=== PATIENT | female | born 1935 | race Caucasian/White ===

== ENCOUNTER 2016-08-12 17:03 | Emergency (ER) | payer OTHER, MEDICAID ==
[~2016-08-12] VITALS: Ht 160 cm; Wt 94.3 kg
[~2016-08-12 17:03] MED LIST: ALBUAER3 IN; ALL100T PO; ASPI-498 PO; FURO20TA3 PO; GABA-494 PO; GLYB2.5T76 PO; MELA3TAB27 PO; METO25TA5 PO; NAPR-607 PO; OMEP20CA5 PO; POT20T PO; RIVA15TA PO; SERT-160 PO; SIMV-13 PO
[2016-08-12 18:17] LABS: Basophils # (auto) 0 uL; Basophils % (auto) 0.4 % (0.0-2.0); Eosinophils # (auto) 0.2 uL; Eosinophils % (auto) 2.7 % (0.0-7.0); Hematocrit 37.9 % (36.0-46.0); Hemoglobin 12.8 g/dL (12.2-16.2); Lymphocytes # (auto) 1.3 uL; Lymphocytes % (auto) 16.7 % (10.0-50.0); Mean Corpuscular Hemoglobin 31.9 pg (28.0-32.0); Mean Corpuscular Hgb Conc. 33.7 g/dL (32.0-36.0); Mean Corpuscular Volume 94.6 fL (80.0-100.0); Monocytes # (auto) 0.4 uL; Monocytes % (auto) 5.5 % (0.0-12.0); Neutrophils # (auto) 5.9 uL; Neutrophils % (auto) 74.7 % (37.0-80.0); Platelet Count (auto) 222 10^3/uL (140-450); Red Cell Distribution Width 14.4 % (11.6-16.0); White Blood Cell 7.9 10^3/uL (4.4-10.8)
[2016-08-12 18:44] LABS: Albumin 3.4 g/dL (3.4-5.0); Bilirubin, Total 0.4 mg/dL (0.2-1.0); Calcium 8.6 mg/dL (8.5-10.1); Potassium 4.1 mmol/L (3.5-5.1); Total Protein 6.7 g/dL (6.4-8.2)
[2016-08-12 18:56] LABS: B-Type Natriuretic Peptide 241.4 pg/mL (0-100); Temperature: 22.3 C (20.0-25.0)
[2016-08-13] MEDS ORDERED: FUROSEMIDE 40 MG/4 ML VIAL IV ONE (01:15)
[2016-08-13] MEDS ORDERED: FUROSEMIDE 20 MG TAB PO ONE (01:30)
[2016-08-13] MEDS ORDERED: FUROSEMIDE 40 MG TAB ONE (01:39)
[2016-08-13 02:00] VITALS: BP 126/70
== END 2016-08-13 02:00 | disposition home or self-care (01) ==
LOC: ER 17:14
DX: I11.0 Hypertensive heart disease with heart failure (principal); I50.43 Acute on chronic combined systolic (congestive) and diastolic (congestive) heart failure; I25.10 Atherosclerotic heart disease of native coronary artery without angina pectoris; J44.9 Chronic obstructive pulmonary disease, unspecified; E11.9 Type 2 diabetes mellitus without complications; K21.9 Gastro-esophageal reflux disease without esophagitis; E78.5 Hyperlipidemia, unspecified; Z98.51 Tubal ligation status; Z79.82 Long term (current) use of aspirin; Z79.899 Other long term (current) drug therapy; Z90.710 Acquired absence of both cervix and uterus
CPT/HCPCS: 36415; 71010; 80053; 83880; 85025; 93005

== ENCOUNTER 2017-07-03 14:20 | Inpatient (IN) | payer OTHER, MEDICAID ==
[~2017-07-03] VITALS: Ht 167.6 cm; Wt 82.8 kg
[~2017-07-03 14:20] MED LIST changes: -GABA-494 PO; +GABA100C9 PO; +GLIP-115 PO; -GLYB2.5T76 PO; +MELO1TAB73 PO; -NAPR-607 PO; +NAPR500T31 PO; +NIFE90TA30 PO; -OMEP20CA5 PO; +OMEP20CA74 PO
[2017-07-03] MEDS ORDERED: methylPREDNISolone SOD SUCC 125 MG/2 ML VL ONE (14:23)
[2017-07-03] MEDS ORDERED: methylPREDNISolone SOD SUCC 125 MG/2 ML VL IV ONE (14:45)
[2017-07-03] MEDS ORDERED: IPRATROPIUM BROM 0.5 MG/2.5ML INH SOL NEB ONE (14:45)
[2017-07-03] MEDS ORDERED: ALBUTEROL SULF 2.5 MG/0.5ML(0.5%) NEB SOLN NEB ONE (14:45)
[2017-07-03] MEDS ORDERED: FUROSEMIDE 40 MG/4 ML VIAL IV ONE (14:45)
[2017-07-03 15:16] LABS: Basophils # (auto) 0 uL; Basophils % (auto) 0.5 % (0.0-2.0); Eosinophils # (auto) 0.2 uL; Eosinophils % (auto) 4.2 % (0.0-7.0); Hematocrit 32.3 % (36.0-46.0); Hemoglobin 10.8 g/dL (12.2-16.2); Lymphocytes # (auto) 0.8 uL; Lymphocytes % (auto) 14.5 % (10.0-50.0); Mean Corpuscular Hemoglobin 31.5 pg (28.0-32.0); Mean Corpuscular Hgb Conc. 33.4 g/dL (32.0-36.0); Mean Corpuscular Volume 94.3 fL (80.0-100.0); Monocytes # (auto) 0.4 uL; Monocytes % (auto) 7.6 % (0.0-12.0); Neutrophils # (auto) 4.1 uL; Neutrophils % (auto) 73.2 % (37.0-80.0); Platelet Count (auto) 140 10^3/uL (140-450); Red Blood Cells 3.43 10^6/uL (4.0-5.20); Red Cell Distribution Width 15.9 % (11.8-14.3); White Blood Cell 5.6 10^3/uL (4.4-10.8)
[2017-07-03 15:34] LABS: Alanine Aminotransferase 15 U/L (13-56); Albumin 3.4 g/dL (3.4-5.0); Alkaline Phosphatase 87 U/L (45-117); Anion Gap 7 (5-15); Aspartate Aminotransferase 14 U/L (15-37); BUN/Creatinine Ratio 15.7; Bilirubin, Total 0.8 mg/dL (0.2-1.0); Blood Urea Nitrogen 18 mg/dL (7-18); Calcium 8.1 mg/dL (8.5-10.1); Carbon Dioxide 27 mmol/L (21-32); Chloride 110 mmol/L (98-107); GFR African American 58 mL/min; GFR Non-African American 48 mL/min; Glucose 101 mg/dL (74-106); Magnesium 2.4 mg/dL (1.6-2.6); Potassium 3.9 mmol/L (3.5-5.1); Sodium 144 mmol/L (136-145); Total Protein 6.5 g/dL (6.4-8.2)
[2017-07-03] MEDS ORDERED: SPIRONOLACTONE 25 MG TAB PO ONE (18:45)
[2017-07-03] MEDS ORDERED: cloNIDine HCL 0.1 MG TAB PO PRN (18:45)
[2017-07-03] MEDS ORDERED: NAPROXEN 500 MG TAB PO PRN (18:45)
[2017-07-03] MEDS ORDERED: DOCUSATE SOD 100 MG CAP PO PRN (19:00)
[2017-07-03] MEDS ORDERED: MORPHINE SULFATE 10 MG/ML INJ 1ML SDV IV PRN ×2 (19:00)
[2017-07-03] MEDS ORDERED: HYDROcodone-ACET 5/325MG TAB PO PRN (19:00)
[2017-07-03] MEDS ORDERED: ACETAMINOPHEN 325 MG TAB PO PRN (19:00)
[2017-07-03] MEDS ORDERED: ONDANSETRON HCL 4 MG/2 ML VIAL IV PRN (19:00)
[2017-07-03] MEDS ORDERED: TEMAZEPAM 15 MG CAP PO PRN (19:00)
[2017-07-03] MEDS ORDERED: NITROGLYCERIN 0.4 MG SL TAB SL PRN (19:00)
[2017-07-03] MEDS ORDERED: DEXTROSE (50%) 50ML SYRG IV PRN (19:00)
[2017-07-03 19:13] VITALS: BP 139/92
[2017-07-03 19:20] LABS: Urine Bacteria FEW /hpf (None Seen); Urine Blood Negative /uL (Negative); Urine Specific Gravity 1.008 (1.001-1.035); Urine WBC <1 /hpf (0 - 5)
[2017-07-03 22:00] VITALS: BP 147/69
[2017-07-03] MEDS: POTASSIUM CHL 10 Meq TABLET PO SCH (22:01)
[2017-07-03] MEDS: SODIUM CHLOR 0.9% PF (SALINE LOCK) 10ML VIAL IV SCH (22:01)
[2017-07-03] MEDS: GABAPENTIN 100 MG CAP PO SCH (22:02)
[2017-07-03] MEDS: ATORVASTATIN 20 MG TAB PO SCH (22:02)
[2017-07-03] MEDS: METOPROLOL TARTRATE 50 MG TAB PO SCH (22:02)
[2017-07-03] MEDS: ACCU-CHEK COMFORT CURVE STRIP VI SCH (22:03)
[2017-07-03] MEDS: PANTOPRAZOLE 40 MG TAB PO SCH (22:03)
[2017-07-03] MEDS: FAMOTIDINE 20 MG TAB PO SCH (22:03)
[2017-07-03] MEDS: InsuLIN REG 1unit/0.01ml Soln (100units/ml) SC SCH (22:06)
[2017-07-03 23:28] VITALS: BP 147/69
[2017-07-04] MEDS: IPRATROPIUM BROM 0.5 MG/2.5ML INH SOL NEB SCH ×4 (00:50→19:42)
[2017-07-04] MEDS: ALBUTEROL SULF 2.5 MG/0.5ML(0.5%) NEB SOLN NEB SCH ×4 (00:50→19:42)
[2017-07-04 05:15] VITALS: BP 145/76
[2017-07-04] MEDS: GABAPENTIN 100 MG CAP PO SCH ×3 (05:18→23:13)
[2017-07-04] MEDS: SODIUM CHLOR 0.9% PF (SALINE LOCK) 10ML VIAL IV SCH ×3 (05:18→23:08)
[2017-07-04] MEDS: ACCU-CHEK COMFORT CURVE STRIP VI SCH ×4 (05:19→23:14)
[2017-07-04] MEDS: InsuLIN REG 1unit/0.01ml Soln (100units/ml) SC SCH ×4 (05:26→22:00)
[2017-07-04] MEDS ORDERED: FUROSEMIDE 40 MG/4 ML VIAL IV SCH (06:00)
[2017-07-04] MEDS ORDERED: SPIRONOLACTONE 25 MG TAB PO SCH (06:00)
[2017-07-04 06:54] LABS: Basophils # (auto) 0 uL; Basophils % (auto) 0.1 % (0.0-2.0); Eosinophils # (auto) 0 uL; Eosinophils % (auto) 0.1 % (0.0-7.0); Hematocrit 31.9 % (36.0-46.0); Hemoglobin 10.9 g/dL (12.2-16.2); Lymphocytes # (auto) 0.3 uL; Lymphocytes % (auto) 6.2 % (10.0-50.0); Mean Corpuscular Hemoglobin 31.8 pg (28.0-32.0); Mean Corpuscular Hgb Conc. 34.1 g/dL (32.0-36.0); Mean Corpuscular Volume 93.4 fL (80.0-100.0); Monocytes # (auto) 0.2 uL; Monocytes % (auto) 3.6 % (0.0-12.0); Neutrophils # (auto) 4.7 uL; Nucleated Red Blood Cells % 0.1 %; Platelet Count (auto) 151 10^3/uL (140-450); Red Blood Cells 3.42 10^6/uL (4.0-5.20); Red Cell Distribution Width 15.5 % (11.8-14.3); White Blood Cell 5.2 10^3/uL (4.4-10.8)
[2017-07-04] MEDS ORDERED: glipiZIDE 5 MG TAB PO SCH (07:00)
[2017-07-04 07:15] LABS: Albumin 3.3 g/dL (3.4-5.0); BUN/Creatinine Ratio 17.6; Bilirubin, Total 0.9 mg/dL (0.2-1.0); Calcium 8.5 mg/dL (8.5-10.1); Potassium 4.3 mmol/L (3.5-5.1); Total Protein 6.6 g/dL (6.4-8.2)
[2017-07-04 09:00] VITALS: BP 149/74
[2017-07-04] MEDS: POTASSIUM CHL 10 Meq TABLET PO SCH (09:30)
[2017-07-04] MEDS: PANTOPRAZOLE 40 MG TAB PO SCH ×2 (09:30→23:13)
[2017-07-04] MEDS: ASPirin-EC 81 mg tab PO SCH (09:30)
[2017-07-04] MEDS: FAMOTIDINE 20 MG TAB PO SCH ×2 (09:30→23:13)
[2017-07-04] MEDS: SERTRALINE HCL 50 MG TAB PO SCH (09:30)
[2017-07-04] MEDS: MULTIPLE VITAMIN TAB PO SCH (09:30)
[2017-07-04] MEDS: ALLOPURINOL 100 MG TAB PO SCH (09:30)
[2017-07-04] MEDS: METOPROLOL TARTRATE 50 MG TAB PO SCH ×2 (09:31→23:12)
[2017-07-04] MEDS ORDERED: ENOXAPARIN SOD 40 MG/0.4 ML SYRINGE SC SCH (10:00)
[2017-07-04 13:00] VITALS: BP 132/70
[2017-07-04 13:22] VITALS: BP 132/70
[2017-07-04] MEDS ORDERED: guaiFENesin-DM 100/10mg/5ml SYR PO PRN (14:15)
[2017-07-04] MEDS ORDERED: LEVOFLOXACIN 500 MG TAB PO ONE (14:15)
[2017-07-04] MEDS ORDERED: FUROSEMIDE 20 MG TAB PO ONE (14:30)
[2017-07-04 15:46] LABS: % Iron Saturation 11.5 % (15-50)
[2017-07-04 17:00] VITALS: BP 165/75
[2017-07-04] MEDS: RIVAROXABAN 15 MG TAB PO SCH (17:35)
[2017-07-04 21:57] VITALS: BP 131/80
[2017-07-04] MEDS: ATORVASTATIN 20 MG TAB PO SCH (23:10)
[2017-07-05] MEDS: IPRATROPIUM BROM 0.5 MG/2.5ML INH SOL NEB SCH ×4 (00:47→18:30)
[2017-07-05] MEDS: ALBUTEROL SULF 2.5 MG/0.5ML(0.5%) NEB SOLN NEB SCH ×4 (00:47→18:30)
[2017-07-05 05:19] VITALS: BP 145/83
[2017-07-05] MEDS: GABAPENTIN 100 MG CAP PO SCH ×3 (05:56→21:47)
[2017-07-05] MEDS: SODIUM CHLOR 0.9% PF (SALINE LOCK) 10ML VIAL IV SCH ×3 (05:56→21:45)
[2017-07-05] MEDS: InsuLIN REG 1unit/0.01ml Soln (100units/ml) SC SCH ×4 (05:56→21:47)
[2017-07-05 06:04] LABS: Basophils # (auto) 0 uL; Basophils % (auto) 0.5 % (0.0-2.0); Eosinophils # (auto) 0.2 uL; Eosinophils % (auto) 2.2 % (0.0-7.0); Hematocrit 32.5 % (36.0-46.0); Hemoglobin 10.8 g/dL (12.2-16.2); Lymphocytes # (auto) 1.1 uL; Lymphocytes % (auto) 13.7 % (10.0-50.0); Mean Corpuscular Hemoglobin 31.2 pg (28.0-32.0); Mean Corpuscular Hgb Conc. 33.4 g/dL (32.0-36.0); Mean Corpuscular Volume 93.5 fL (80.0-100.0); Monocytes # (auto) 0.6 uL; Monocytes % (auto) 8.3 % (0.0-12.0); Neutrophils # (auto) 5.8 uL; Neutrophils % (auto) 75.3 % (37.0-80.0); Platelet Count (auto) 167 10^3/uL (140-450); Red Blood Cells 3.47 10^6/uL (4.0-5.20); Red Cell Distribution Width 15.7 % (11.8-14.3); White Blood Cell 7.7 10^3/uL (4.4-10.8)
[2017-07-05] MEDS: ACCU-CHEK COMFORT CURVE STRIP VI SCH ×4 (06:15→21:47)
[2017-07-05 07:06] LABS: Anion Gap 10 (5-15); BUN/Creatinine Ratio 15.7; Blood Urea Nitrogen 20 mg/dL (7-18); Calcium 8.3 mg/dL (8.5-10.1); Carbon Dioxide 29 mmol/L (21-32); Chloride 105 mmol/L (98-107); Cholesterol 139 mg/dL (< 200); GFR African American 52 mL/min; GFR Non-African American 43 mL/min; Glucose 90 mg/dL (74-106); HDL Cholesterol 56 mg/dL (40-59); LDL Cholesterol 72 mg/dL (< 100); Magnesium 2.2 mg/dL (1.6-2.6); Potassium 3.5 mmol/L (3.5-5.1); Sodium 144 mmol/L (136-145); Triglycerides 106 mg/dL (< 150)
[2017-07-05 09:00] VITALS: BP 152/86
[2017-07-05] MEDS: METOPROLOL TARTRATE 50 MG TAB PO SCH ×2 (09:55→21:46)
[2017-07-05] MEDS: ASPirin-EC 81 mg tab PO SCH (09:55)
[2017-07-05] MEDS: FAMOTIDINE 20 MG TAB PO SCH (09:55)
[2017-07-05] MEDS: MULTIPLE VITAMIN TAB PO SCH (09:55)
[2017-07-05] MEDS: PANTOPRAZOLE 40 MG TAB PO SCH ×2 (09:55→21:46)
[2017-07-05] MEDS: ALLOPURINOL 100 MG TAB PO SCH (09:55)
[2017-07-05] MEDS: SERTRALINE HCL 50 MG TAB PO SCH (09:56)
[2017-07-05] MEDS: FUROSEMIDE 20 MG TAB PO SCH (09:56)
[2017-07-05] MEDS ORDERED: LEVOFLOXACIN 500 MG TAB PO SCH (10:00)
[2017-07-05] MEDS ORDERED: AZITHROMYCIN 250 MG TAB PO ONE (10:15)
[2017-07-05 13:00] VITALS: BP 146/85
[2017-07-05 17:00] VITALS: BP 148/72
[2017-07-05] MEDS: RIVAROXABAN 15 MG TAB PO SCH (18:06)
[2017-07-05] MEDS: ATORVASTATIN 20 MG TAB PO SCH (21:45)
[2017-07-05 21:52] VITALS: BP 132/58
[2017-07-06] VITALS (9 sets, daily range): BP systolic 103–177; BP diastolic 50–92
[2017-07-06] MEDS: IPRATROPIUM BROM 0.5 MG/2.5ML INH SOL NEB SCH ×4 (00:30→18:00)
[2017-07-06] MEDS: ALBUTEROL SULF 2.5 MG/0.5ML(0.5%) NEB SOLN NEB SCH ×4 (00:30→18:00)
[2017-07-06] MEDS: SODIUM CHLOR 0.9% PF (SALINE LOCK) 10ML VIAL IV SCH ×3 (05:30→21:32)
[2017-07-06] MEDS: GABAPENTIN 100 MG CAP PO SCH ×3 (05:30→21:34)
[2017-07-06] MEDS: ACCU-CHEK COMFORT CURVE STRIP VI SCH ×4 (06:16→21:33)
[2017-07-06] MEDS: InsuLIN REG 1unit/0.01ml Soln (100units/ml) SC SCH ×4 (06:17→21:32)
[2017-07-06 06:41] LABS: Basophils # (auto) 0 uL; Basophils % (auto) 0.7 % (0.0-2.0); Eosinophils # (auto) 0.3 uL; Eosinophils % (auto) 5.9 % (0.0-7.0); Hematocrit 33.3 % (36.0-46.0); Hemoglobin 11.2 g/dL (12.2-16.2); Lymphocytes % (auto) 17.6 % (10.0-50.0); Mean Corpuscular Hemoglobin 31.5 pg (28.0-32.0); Mean Corpuscular Hgb Conc. 33.8 g/dL (32.0-36.0); Mean Corpuscular Volume 93.2 fL (80.0-100.0); Monocytes # (auto) 0.6 uL; Monocytes % (auto) 10.3 % (0.0-12.0); Neutrophils # (auto) 3.6 uL; Neutrophils % (auto) 65.5 % (37.0-80.0); Platelet Count (auto) 158 10^3/uL (140-450); Red Blood Cells 3.57 10^6/uL (4.0-5.20); Red Cell Distribution Width 15.6 % (11.8-14.3); White Blood Cell 5.5 10^3/uL (4.4-10.8)
[2017-07-06 07:16] LABS: Albumin 3.1 g/dL (3.4-5.0); BUN/Creatinine Ratio 14.2; Bilirubin, Total 0.8 mg/dL (0.2-1.0); Calcium 8.2 mg/dL (8.5-10.1); Potassium 3.7 mmol/L (3.5-5.1); Total Protein 6.2 g/dL (6.4-8.2)
[2017-07-06] MEDS ORDERED: ADENOSINE 71 MG in GIVE UN-DILUTED 0 ML IV ONE (08:30)
[2017-07-06] MEDS ORDERED: IPRATROPIUM BROM 0.5 MG/2.5ML INH SOL ONE (11:00)
[2017-07-06] MEDS ORDERED: ALBUTEROL SULF 2.5 MG/0.5ML(0.5%) NEB SOLN ONE (11:00)
[2017-07-06] MEDS: MULTIPLE VITAMIN TAB PO SCH (13:05)
[2017-07-06] MEDS: ASPirin-EC 81 mg tab PO SCH (13:08)
[2017-07-06] MEDS: PANTOPRAZOLE 40 MG TAB PO SCH ×2 (13:08→21:34)
[2017-07-06] MEDS: SERTRALINE HCL 50 MG TAB PO SCH (13:09)
[2017-07-06] MEDS: ALLOPURINOL 100 MG TAB PO SCH (13:10)
[2017-07-06] MEDS: FUROSEMIDE 20 MG TAB PO SCH (13:14)
[2017-07-06] MEDS: METOPROLOL TARTRATE 50 MG TAB PO SCH ×2 (13:18→21:34)
[2017-07-06] MEDS: RIVAROXABAN 15 MG TAB PO SCH (17:33)
[2017-07-06] MEDS: ATORVASTATIN 20 MG TAB PO SCH (21:33)
[2017-07-07] VITALS (8 sets, daily range): BP systolic 111–148; BP diastolic 50–83
[2017-07-07] MEDS: IPRATROPIUM BROM 0.5 MG/2.5ML INH SOL NEB SCH ×3 (00:38→11:52)
[2017-07-07] MEDS: ALBUTEROL SULF 2.5 MG/0.5ML(0.5%) NEB SOLN NEB SCH ×3 (00:38→11:52)
[2017-07-07] MEDS: SODIUM CHLOR 0.9% PF (SALINE LOCK) 10ML VIAL IV SCH ×2 (05:29→13:02)
[2017-07-07] MEDS: GABAPENTIN 100 MG CAP PO SCH ×2 (05:29→13:04)
[2017-07-07] MEDS: InsuLIN REG 1unit/0.01ml Soln (100units/ml) SC SCH ×3 (06:27→17:00)
[2017-07-07] MEDS: ACCU-CHEK COMFORT CURVE STRIP VI SCH ×3 (06:27→17:19)
[2017-07-07 07:11] LABS: Basophils # (auto) 0 uL; Basophils % (auto) 0.4 % (0.0-2.0); Eosinophils # (auto) 0.3 uL; Eosinophils % (auto) 5.1 % (0.0-7.0); Hematocrit 34.5 % (36.0-46.0); Hemoglobin 11.6 g/dL (12.2-16.2); Lymphocytes % (auto) 15.2 % (10.0-50.0); Mean Corpuscular Hemoglobin 31.3 pg (28.0-32.0); Mean Corpuscular Hgb Conc. 33.6 g/dL (32.0-36.0); Monocytes # (auto) 0.5 uL; Monocytes % (auto) 7.2 % (0.0-12.0); Neutrophils # (auto) 4.8 uL; Neutrophils % (auto) 72.1 % (37.0-80.0); Platelet Count (auto) 161 10^3/uL (140-450); Red Blood Cells 3.71 10^6/uL (4.0-5.20); Red Cell Distribution Width 15.5 % (11.8-14.3); White Blood Cell 6.7 10^3/uL (4.4-10.8)
[2017-07-07 07:38] LABS: BUN/Creatinine Ratio 15.8; Bilirubin, Total 0.5 mg/dL (0.2-1.0); Calcium 8.2 mg/dL (8.5-10.1); Potassium 3.3 mmol/L (3.5-5.1)
[2017-07-07] MEDS: PANTOPRAZOLE 40 MG TAB PO SCH (09:29)
[2017-07-07] MEDS: ALLOPURINOL 100 MG TAB PO SCH (09:29)
[2017-07-07] MEDS: ASPirin-EC 81 mg tab PO SCH (09:29)
[2017-07-07] MEDS: SERTRALINE HCL 50 MG TAB PO SCH (09:29)
[2017-07-07] MEDS ORDERED: POTASSIUM CHLORIDE 40 MEQ, LIDOCAINE 1% (LOCAL ANESTH.) 4 ML in SODIUM CHL 0.9% 100 ML IV ONE ×6 (09:30)
[2017-07-07] MEDS: MULTIPLE VITAMIN TAB PO SCH (09:31)
[2017-07-07] MEDS: FUROSEMIDE 20 MG TAB PO SCH (09:32)
[2017-07-07] MEDS: METOPROLOL TARTRATE 50 MG TAB PO SCH (09:32)
[2017-07-07] MEDS: RIVAROXABAN 15 MG TAB PO SCH (17:19)
== END 2017-07-07 19:20 | disposition home or self-care (01) | DRG 291 ==
LOC: EDBD 14:20 → ER 14:20 → EDUNIT# 14:20 → TELE 14:21 → TELE-WESTW 19:53
PROVIDERS: ADMIT Internal Medicine; ATTEND Internal Medicine
PROC: 5A09357 Assistance with Respiratory Ventilation, Less than 24 Consecutive Hours, Continuous Positive Airway Pressure (ICD-10-PCS; principal; 2017-07-06)
PROC: 5A09357 Assistance with Respiratory Ventilation, Less than 24 Consecutive Hours, Continuous Positive Airway Pressure (ICD-10-PCS; 2017-07-07)
DX: I13.0 Hypertensive heart and chronic kidney disease with heart failure and stage 1 through stage 4 chronic kidney disease, or unspecified chronic kidney disease (principal); I50.43 Acute on chronic combined systolic (congestive) and diastolic (congestive) heart failure; J96.21 Acute and chronic respiratory failure with hypoxia; D68.69 Other thrombophilia; E11.21 Type 2 diabetes mellitus with diabetic nephropathy; E11.22 Type 2 diabetes mellitus with diabetic chronic kidney disease; N18.3 Chronic kidney disease, stage 3 (moderate); E83.51 Hypocalcemia; I27.20 Pulmonary hypertension, unspecified; J44.1 Chronic obstructive pulmonary disease with (acute) exacerbation; I48.92 Unspecified atrial flutter; K21.9 Gastro-esophageal reflux disease without esophagitis; D63.8 Anemia in other chronic diseases classified elsewhere; E78.5 Hyperlipidemia, unspecified; F32.9 Major depressive disorder, single episode, unspecified; I48.91 Unspecified atrial fibrillation; I25.10 Atherosclerotic heart disease of native coronary artery without angina pectoris; I70.0 Atherosclerosis of aorta; J20.9 Acute bronchitis, unspecified; Z99.81 Dependence on supplemental oxygen; Z86.711 Personal history of pulmonary embolism; Z95.5 Presence of coronary angioplasty implant and graft; Z82.49 Family history of ischemic heart disease and other diseases of the circulatory system; Z86.718 Personal history of other venous thrombosis and embolism; Z83.3 Family history of diabetes mellitus; Z90.710 Acquired absence of both cervix and uterus; Z91.19 Patient's noncompliance with other medical treatment and regimen; Z90.49 Acquired absence of other specified parts of digestive tract
CPT/HCPCS: 36415; 71045; 71046; 78452; 80048; 80053; 80061; 81001; 82270; 82962; 83036; 83540; 83550; 83735; 83880; 84484; 85025; 87070; 87077; 87186; 87205; 93005; 93017; 93306; 94640; 94660; 96374; 96375; J0153; J1815; J2001; J2405

== ENCOUNTER 2017-09-19 03:17 | Emergency (ER) | payer OTHER, MEDICAID ==
[~2017-09-19] VITALS: Ht 160 cm; Wt 81.6 kg
[2017-09-19 04:32] LABS: Basophils # (auto) 0 uL; Basophils % (auto) 0.3 % (0.0-2.0); Eosinophils # (auto) 0.1 uL; Hematocrit 34.6 % (36.0-46.0); Hemoglobin 11.7 g/dL (12.2-16.2); Lymphocytes # (auto) 0.2 uL; Lymphocytes % (auto) 3.7 % (10.0-50.0); Mean Corpuscular Hemoglobin 31.8 pg (28.0-32.0); Mean Corpuscular Hgb Conc. 33.8 g/dL (32.0-36.0); Mean Corpuscular Volume 94.1 fL (80.0-100.0); Monocytes # (auto) 0.3 uL; Monocytes % (auto) 4.4 % (0.0-12.0); Neutrophils # (auto) 5.3 uL; Neutrophils % (auto) 90.6 % (37.0-80.0); Platelet Count (auto) 133 10^3/uL (140-450); Red Blood Cells 3.67 10^6/uL (4.0-5.20); Red Cell Distribution Width 14.7 % (11.8-14.3); White Blood Cell 5.8 10^3/uL (4.4-10.8)
[2017-09-19 04:41] LABS: INR 1.09 (0.9-1.15); Partial Thromboplastin Time 28.7 sec (22.64-33.71); Prothrombin Time 11.9 sec (9.37-12.3)
[2017-09-19 04:42] LABS: Magnesium 1.9 mg/dL (1.6-2.6)
[2017-09-19] MEDS ORDERED: NIFEdipine 10 MG CAP PO ONE (04:45)
[2017-09-19 04:47] LABS: Alanine Aminotransferase 21 U/L (13-56); Albumin 3.5 g/dL (3.4-5.0); Alkaline Phosphatase 92 U/L (45-117); Anion Gap 6 (5-15); Aspartate Aminotransferase 22 U/L (15-37); BUN/Creatinine Ratio 16.2; Bilirubin, Total 0.8 mg/dL (0.2-1.0); Blood Urea Nitrogen 16 mg/dL (7-18); Calcium 8.4 mg/dL (8.5-10.1); Carbon Dioxide 28 mmol/L (21-32); Chloride 109 mmol/L (98-107); GFR African American 69 mL/min; GFR Non-African American 57 mL/min; Glucose 146 mg/dL (74-106); Potassium 3.7 mmol/L (3.5-5.1); Sodium 143 mmol/L (136-145); Total Protein 6.4 g/dL (6.4-8.2)
[2017-09-19] MEDS ORDERED: FUROSEMIDE 20 MG/2 ML VIAL IV ONE (06:00)
[2017-09-19 08:36] LABS: Urine Bacteria NONE SEEN /hpf (None Seen); Urine Blood Negative /uL (Negative); Urine Mucus FEW (None Seen); Urine WBC <1 /hpf (0 - 5)
[2017-09-19 10:43] VITALS: BP 146/71
== END 2017-09-19 12:14 | disposition home or self-care (01) ==
LOC: EDBD 03:17 → ER 03:26
DX: I11.0 Hypertensive heart disease with heart failure (principal); I50.9 Heart failure, unspecified; R11.2 Nausea with vomiting, unspecified; K21.9 Gastro-esophageal reflux disease without esophagitis; E11.9 Type 2 diabetes mellitus without complications; Z98.51 Tubal ligation status; Z90.89 Acquired absence of other organs; Z98.61 Coronary angioplasty status; Z86.73 Personal history of transient ischemic attack (TIA), and cerebral infarction without residual deficits; Z79.899 Other long term (current) drug therapy
CPT/HCPCS: 36415; 71045; 74176; 80053; 81001; 82150; 83690; 83735; 83880; 84443; 84484; 85025; 85379; 85610; 85730; 93005; 96374; 99285; J1940

== ENCOUNTER 2020-01-23 02:47 | Inpatient (IN) | payer OTHER, MEDICAID ==
[~2020-01-23] VITALS: Ht 170.2 cm; Wt 95.9 kg
[~2020-01-23 02:47] MED LIST changes: -FURO20TA3 PO; +FURO40TA4 PO; -GABA100C9 PO; +GABA300C10 PO; -GLIP-115 PO; +GLIP5TAB12 PO; -MELO1TAB73 PO; +METO-158 PO; -METO25TA5 PO; -NAPR500T31 PO; -NIFE90TA30 PO
[2020-01-23 04:09] LABS: Basophils # (auto) 0 10 ^3/uL (0-0.2); Basophils % (auto) 0.5 % (0.0-2.0); Eosinophils # (auto) 0.2 10 ^3/uL (0-0.8); Eosinophils % (auto) 3.7 % (0.0-7.0); Hematocrit 35.7 % (36.0-46.0); Hemoglobin 11.9 g/dL (12.2-16.2); Lymphocytes # (auto) 1.1 10 ^3/uL (0.4-5.4); Mean Corpuscular Hemoglobin 32.2 pg (28.0-32.0); Mean Corpuscular Hgb Conc. 33.5 g/dL (32.0-36.0); Mean Corpuscular Volume 96.3 fL (80.0-100.0); Monocytes # (auto) 0.6 10 ^3/uL (0-1.3); Monocytes % (auto) 8.5 % (0.0-12.0); Neutrophils # (auto) 4.6 10 ^3/uL (1.6-8.6); Neutrophils % (auto) 70.3 % (37.0-80.0); Nucleated Red Blood Cells % 0.1 %; Platelet Count (auto) 162 10^3/uL (140-450); White Blood Cell 6.6 10^3/uL (4.4-10.8)
[2020-01-23 04:28] LABS: Albumin 3.5 g/dL (3.4-5.0); Anion Gap 6 (5-15); Blood Urea Nitrogen 11 mg/dL (7-18); Calcium 8.4 mg/dL (8.5-10.1); Carbon Dioxide 31 mmol/L (21-32); Chloride 104 mmol/L (98-107); Glucose 76 mg/dL (74-106); Magnesium 2.3 mg/dL (1.6-2.6); Potassium 3.1 mmol/L (3.5-5.1); Sodium 141 mmol/L (136-145)
[2020-01-23 04:37] LABS: Alanine Aminotransferase 22 U/L (13-56); Alkaline Phosphatase 76 U/L (45-117); Aspartate Aminotransferase 20 U/L (15-37); BUN/Creatinine Ratio 9.6; Bilirubin, Total 0.5 mg/dL (0.2-1.0); GFR African American 58 mL/min; GFR Non-African American 48 mL/min; Total Protein 6.7 g/dL (6.4-8.2)
[2020-01-23 04:39] LABS: INR 1.01 (0.9-1.15); Partial Thromboplastin Time 24.8 sec (23.0-31.2)
[2020-01-23] MEDS ORDERED: HYDROcodone-ACET 10/325MG TAB PO ONE (05:00)
[2020-01-23] MEDS ORDERED: POTASSIUM CHL 20 Meq TABLET PO ONE (05:15)
[2020-01-23] MEDS ORDERED: ACETAMINOPHEN 325 MG TAB PO PRN (06:30)
[2020-01-23] MEDS ORDERED: NITROGLYCERIN 0.4 MG SL TAB SL PRN (06:30)
[2020-01-23] MEDS ORDERED: MORPHINE SULF INJ 2 MG/ML SYRINGE 1ML IV PRN (06:30)
[2020-01-23] MEDS ORDERED: ONDANSETRON HCL 4 MG/2 ML VIAL IV PRN (06:30)
[2020-01-23] MEDS ORDERED: DEXTROSE (50%) 50ML SYRG IV PRN (06:45)
[2020-01-23] MEDS: cefTRIAXone 1GM/50ML D5W 50 ML IV SCH (08:28)
[2020-01-23] MEDS: SODIUM CHLORIDE 0.9% 1,000 ML IV SCH ×2 (08:29→15:04)
[2020-01-23] MEDS: FUROSEMIDE 40 MG/4 ML VIAL IV SCH (09:01)
[2020-01-23] MEDS: SERTRALINE HCL 50 MG TAB PO SCH (09:02)
[2020-01-23] MEDS: PANTOPRAZOLE 40 MG TAB PO SCH (09:02)
[2020-01-23] MEDS: ASPirin-EC 81 mg tab PO SCH (09:03)
[2020-01-23] MEDS: DOCUSATE SOD 100 MG CAP PO SCH (09:03)
[2020-01-23] MEDS: POTASSIUM CHL 20 Meq TABLET PO SCH (09:04)
[2020-01-23] MEDS ORDERED: LORazepam 2MG/ML-1ML VIAL IV PRN (09:15)
[2020-01-23 11:17] LABS: Urine Bacteria NONE SEEN /hpf (None Seen); Urine Blood Negative /uL (Negative); Urine Mucus FEW (None Seen); Urine Specific Gravity 1.012 (1.001-1.035); Urine WBC <1 /hpf (0 - 5)
[2020-01-23] MEDS: InsuLIN REG 1unit/0.01ml Soln (100units/ml) SC SCH ×3 (12:00→23:16)
[2020-01-23] MEDS ORDERED: IBUP400T21 PO (12:07)
[2020-01-23] MEDS ORDERED: OMEP-260 PO (12:07)
[2020-01-23] MEDS ORDERED: TRAZ50TA2 PO (12:07)
[2020-01-23] MEDS ORDERED: GLIP-110 PO (12:07)
[2020-01-23] MEDS ORDERED: POTA-180 PO (12:07)
[2020-01-23] MEDS ORDERED: METO25TA5 PO (12:07)
[2020-01-23] MEDS ORDERED: LORA-622 PO (12:07)
[2020-01-23] MEDS ORDERED: ALBU0.084 NEB (12:07)
[2020-01-23] MEDS ORDERED: LEVO50TA7 PO (12:07)
[2020-01-23] MEDS ORDERED: CHOL20007 PO (12:31)
[2020-01-23] MEDS ORDERED: B-COCAP4 PO (12:31)
[2020-01-23] MEDS ORDERED: CYAN1TAB11 PO (12:31)
[2020-01-23] MEDS ORDERED: HYDR-531 PO (12:31)
[2020-01-23] MEDS: HYDROcodone-ACET 5/325MG TAB PO PRN (12:50)
[2020-01-23] MEDS: ACCU-CHEK COMFORT CURVE STRIP VI SCH ×3 (12:55→23:16)
[2020-01-23] MEDS: METOPROLOL TARTRATE 50 MG TAB PO SCH ×2 (14:05→23:17)
[2020-01-23] MEDS: GABAPENTIN 300 MG CAP PO SCH ×2 (14:06→23:16)
[2020-01-23 15:00] VITALS: BP 152/76
[2020-01-23 15:48] VITALS: BP 155/81
[2020-01-23 17:00] VITALS: BP 140/73
[2020-01-23] MEDS ORDERED: PATIENTS OWN MEDICATION (Simvastatin 1 TAB) PO SCH (18:00)
[2020-01-23] MEDS: HYDROmorphone HCL 2 MG/ML VL IV PRN (18:44)
[2020-01-23 22:00] VITALS: BP 148/72
[2020-01-23] MEDS: traZODone HCL 50 MG TAB PO SCH (23:16)
[2020-01-23] MEDS: PRAVASTATIN SODIUM 20 MG TAB PO SCH (23:16)
[2020-01-24 05:00] VITALS: BP 142/67
[2020-01-24] MEDS: InsuLIN REG 1unit/0.01ml Soln (100units/ml) SC SCH ×3 (06:00→17:47)
[2020-01-24] MEDS: ACCU-CHEK COMFORT CURVE STRIP VI SCH ×3 (06:00→17:46)
[2020-01-24] MEDS: GABAPENTIN 300 MG CAP PO SCH ×3 (06:00→22:24)
[2020-01-24] MEDS: HYDROmorphone HCL 2 MG/ML VL IV PRN (06:01)
[2020-01-24 06:14] LABS: Basophils # (auto) 0 10 ^3/uL (0-0.2); Basophils % (auto) 0.2 % (0.0-2.0); Eosinophils # (auto) 0.2 10 ^3/uL (0-0.8); Eosinophils % (auto) 1.5 % (0.0-7.0); Hemoglobin 11.5 g/dL (12.2-16.2); Lymphocytes # (auto) 0.7 10 ^3/uL (0.4-5.4); Lymphocytes % (auto) 6.4 % (10.0-50.0); Mean Corpuscular Hemoglobin 32.4 pg (28.0-32.0); Mean Corpuscular Hgb Conc. 33.7 g/dL (32.0-36.0); Monocytes # (auto) 0.7 10 ^3/uL (0-1.3); Monocytes % (auto) 7.2 % (0.0-12.0); Neutrophils # (auto) 8.7 10 ^3/uL (1.6-8.6); Neutrophils % (auto) 84.7 % (37.0-80.0); Platelet Count (auto) 158 10^3/uL (140-450); Red Blood Cells 3.54 10^6/uL (4.0-5.20); Red Cell Distribution Width 14.6 % (11.8-14.3); White Blood Cell 10.2 10^3/uL (4.4-10.8)
[2020-01-24 06:46] LABS: Albumin 3.4 g/dL (3.4-5.0); Calcium 8.7 mg/dL (8.5-10.1); Potassium 4.1 mmol/L (3.5-5.1)
[2020-01-24 06:48] LABS: BUN/Creatinine Ratio 13.4; Bilirubin, Total 1.1 mg/dL (0.2-1.0); Total Protein 6.7 g/dL (6.4-8.2)
[2020-01-24] MEDS ORDERED: ADENOSINE 80 MG in GIVE UN-DILUTED 0 ML IV STA (08:16)
[2020-01-24 09:00] VITALS: BP 157/86
[2020-01-24] MEDS ORDERED: ENOXAPARIN SOD 60 MG/0.6 ML SYRINGE SC ONE (09:30)
[2020-01-24 09:34] VITALS: BP 155/95
[2020-01-24] MEDS: ALBUTEROL SULF 2.5 MG/0.5ML(0.5%) NEB SOLN NEB PRN (09:48)
[2020-01-24] MEDS ORDERED: ENOXAPARIN SOD 60 MG/0.6 ML SYRINGE SC SCH (10:00)
[2020-01-24] MEDS: cefTRIAXone 1GM/50ML D5W 50 ML IV SCH (10:55)
[2020-01-24] MEDS: FUROSEMIDE 40 MG/4 ML VIAL IV SCH (10:55)
[2020-01-24] MEDS: DOCUSATE SOD 100 MG CAP PO SCH (10:56)
[2020-01-24] MEDS: POTASSIUM CHL 20 Meq TABLET PO SCH (10:56)
[2020-01-24] MEDS: METOPROLOL TARTRATE 50 MG TAB PO SCH ×2 (10:56→22:24)
[2020-01-24] MEDS: ASPirin-EC 81 mg tab PO SCH (10:56)
[2020-01-24] MEDS: SERTRALINE HCL 50 MG TAB PO SCH (10:56)
[2020-01-24] MEDS: PANTOPRAZOLE 40 MG TAB PO SCH (10:56)
[2020-01-24 13:00] VITALS: BP 149/77
[2020-01-24 17:00] VITALS: BP 127/88
[2020-01-24 22:04] VITALS: BP 155/91
[2020-01-24] MEDS: traZODone HCL 50 MG TAB PO SCH (22:23)
[2020-01-24] MEDS: PRAVASTATIN SODIUM 20 MG TAB PO SCH (22:24)
[2020-01-25] MEDS: ACCU-CHEK COMFORT CURVE STRIP VI SCH ×5 (00:30→23:32)
[2020-01-25] MEDS: InsuLIN REG 1unit/0.01ml Soln (100units/ml) SC SCH ×5 (00:30→23:32)
[2020-01-25] MEDS: HYDROmorphone HCL 2 MG/ML VL IV PRN ×2 (00:35→05:46)
[2020-01-25 05:43] VITALS: BP 142/73
[2020-01-25] MEDS: SODIUM CHLORIDE 0.9% 1,000 ML IV SCH (05:46)
[2020-01-25] MEDS: GABAPENTIN 300 MG CAP PO SCH ×3 (06:30→21:53)
[2020-01-25 06:36] LABS: Basophils # (auto) 0 10 ^3/uL (0-0.2); Basophils % (auto) 0.2 % (0.0-2.0); Eosinophils # (auto) 0.1 10 ^3/uL (0-0.8); Hematocrit 33.3 % (36.0-46.0); Hemoglobin 11.1 g/dL (12.2-16.2); Lymphocytes # (auto) 0.7 10 ^3/uL (0.4-5.4); Lymphocytes % (auto) 7.3 % (10.0-50.0); Mean Corpuscular Hemoglobin 32.3 pg (28.0-32.0); Mean Corpuscular Hgb Conc. 33.2 g/dL (32.0-36.0); Mean Corpuscular Volume 97.4 fL (80.0-100.0); Monocytes # (auto) 0.8 10 ^3/uL (0-1.3); Monocytes % (auto) 8.3 % (0.0-12.0); Neutrophils % (auto) 83.2 % (37.0-80.0); Nucleated Red Blood Cells % 0.1 %; Platelet Count (auto) 126 10^3/uL (140-450); Red Blood Cells 3.42 10^6/uL (4.0-5.20); Red Cell Distribution Width 14.7 % (11.8-14.3); White Blood Cell 9.6 10^3/uL (4.4-10.8)
[2020-01-25 06:51] LABS: Albumin 3.1 g/dL (3.4-5.0); BUN/Creatinine Ratio 18.6; Calcium 8.2 mg/dL (8.5-10.1); Potassium 3.7 mmol/L (3.5-5.1)
[2020-01-25 06:54] LABS: Bilirubin, Total 1.2 mg/dL (0.2-1.0); Total Protein 6.2 g/dL (6.4-8.2)
[2020-01-25] MEDS ORDERED: BUPIVACAINE 0.25% INJ 50ML VIAL ONE (07:18)
[2020-01-25] MEDS ORDERED: fentaNYL CITRATE 100 MCG/2 ML VL ONE (07:55)
[2020-01-25] MEDS ORDERED: ePHEDrine SULFATE 50 MG/ML AMP IV PRN (08:30)
[2020-01-25] MEDS ORDERED: hydrALAZINE HCL 20 MG/ML VL IV PRN (08:30)
[2020-01-25] MEDS ORDERED: ONDANSETRON HCL 4 MG/2 ML VIAL IV PRN (08:30)
[2020-01-25 09:00] VITALS: BP 167/86
[2020-01-25] MEDS ORDERED: LISINOPRIL 5 MG TAB PO ONE (09:15)
[2020-01-25] MEDS ORDERED: METOPROLOL TARTRATE 25 MG TAB PO ONE (09:15)
[2020-01-25] MEDS: LISINOPRIL 5 MG TAB PO SCH (10:00)
[2020-01-25] MEDS: cefTRIAXone 1GM/50ML D5W 50 ML IV SCH (10:37)
[2020-01-25] MEDS: SERTRALINE HCL 50 MG TAB PO SCH (10:41)
[2020-01-25] MEDS: METOPROLOL TARTRATE 50 MG TAB PO SCH ×2 (10:42→21:55)
[2020-01-25] MEDS: PANTOPRAZOLE 40 MG TAB PO SCH (10:43)
[2020-01-25] MEDS: POTASSIUM CHL 20 Meq TABLET PO SCH (10:43)
[2020-01-25] MEDS: ASPirin-EC 81 mg tab PO SCH (10:43)
[2020-01-25] MEDS: FUROSEMIDE 40 MG/4 ML VIAL IV SCH (10:43)
[2020-01-25] MEDS: DOCUSATE SOD 100 MG CAP PO SCH (10:44)
[2020-01-25 13:00] VITALS: BP 154/82
[2020-01-25] MEDS: RIVAROXABAN 20 MG TAB PO SCH (17:40)
[2020-01-25] MEDS: ALBUTEROL SULF 2.5 MG/0.5ML(0.5%) NEB SOLN NEB PRN (18:58)
[2020-01-25] MEDS: PRAVASTATIN SODIUM 20 MG TAB PO SCH (21:53)
[2020-01-25] MEDS: traZODone HCL 50 MG TAB PO SCH ×2 (21:59→22:37)
[2020-01-25 22:00] VITALS: BP 141/76
[2020-01-25] MEDS ORDERED: METOPROLOL TARTRATE 25 MG TAB PO SCH (22:00)
[2020-01-25 23:31] VITALS: BP 132/69
[2020-01-26] MEDS: ALBUTEROL SULF 2.5 MG/0.5ML(0.5%) NEB SOLN NEB PRN ×3 (00:15→18:12)
[2020-01-26 05:00] VITALS: BP 110/59
[2020-01-26] MEDS: GABAPENTIN 300 MG CAP PO SCH ×2 (06:00→14:48)
[2020-01-26] MEDS: InsuLIN REG 1unit/0.01ml Soln (100units/ml) SC SCH ×3 (06:00→18:00)
[2020-01-26] MEDS: ACCU-CHEK COMFORT CURVE STRIP VI SCH ×3 (06:00→18:00)
[2020-01-26] MEDS: SODIUM CHLORIDE 0.9% 1,000 ML IV SCH (06:30)
[2020-01-26 06:53] LABS: Basophils # (auto) 0 10 ^3/uL (0-0.2); Basophils % (auto) 0.2 % (0.0-2.0); Eosinophils # (auto) 0.1 10 ^3/uL (0-0.8); Eosinophils % (auto) 1.1 % (0.0-7.0); Hematocrit 31.7 % (36.0-46.0); Hemoglobin 10.6 g/dL (12.2-16.2); Lymphocytes # (auto) 0.7 10 ^3/uL (0.4-5.4); Lymphocytes % (auto) 7.2 % (10.0-50.0); Mean Corpuscular Hemoglobin 32.8 pg (28.0-32.0); Mean Corpuscular Hgb Conc. 33.5 g/dL (32.0-36.0); Mean Corpuscular Volume 97.8 fL (80.0-100.0); Monocytes # (auto) 0.7 10 ^3/uL (0-1.3); Monocytes % (auto) 7.3 % (0.0-12.0); Neutrophils # (auto) 8.5 10 ^3/uL (1.6-8.6); Neutrophils % (auto) 84.2 % (37.0-80.0); Platelet Count (auto) 125 10^3/uL (140-450); Red Blood Cells 3.24 10^6/uL (4.0-5.20); Red Cell Distribution Width 14.5 % (11.8-14.3); White Blood Cell 10.1 10^3/uL (4.4-10.8)
[2020-01-26 07:09] LABS: Potassium 3.8 mmol/L (3.5-5.1)
[2020-01-26 07:14] LABS: Albumin 2.6 g/dL (3.4-5.0); BUN/Creatinine Ratio 17.8; Calcium 8.4 mg/dL (8.5-10.1)
[2020-01-26 07:17] LABS: Bilirubin, Total 0.9 mg/dL (0.2-1.0); Total Protein 6.1 g/dL (6.4-8.2)
[2020-01-26] MEDS: DOCUSATE SOD 100 MG CAP PO SCH (08:54)
[2020-01-26] MEDS: FUROSEMIDE 40 MG/4 ML VIAL IV SCH (08:54)
[2020-01-26] MEDS: cefTRIAXone 1GM/50ML D5W 50 ML IV SCH (08:54)
[2020-01-26] MEDS: POTASSIUM CHL 20 Meq TABLET PO SCH (08:55)
[2020-01-26] MEDS: PANTOPRAZOLE 40 MG TAB PO SCH (08:55)
[2020-01-26] MEDS: ASPirin-EC 81 mg tab PO SCH (08:55)
[2020-01-26] MEDS: METOPROLOL TARTRATE 50 MG TAB PO SCH (08:56)
[2020-01-26] MEDS: LISINOPRIL 5 MG TAB PO SCH (08:56)
[2020-01-26] MEDS: SERTRALINE HCL 50 MG TAB PO SCH (08:56)
[2020-01-26 09:07] VITALS: BP 111/63
[2020-01-26 10:00] VITALS: BP 111/63
[2020-01-26 13:00] VITALS: BP 131/73
[2020-01-26] MEDS: HYDROcodone-ACET 5/325MG TAB PO PRN (13:12)
[2020-01-26 15:18] VITALS: BP 105/57
[2020-01-26] MEDS: RIVAROXABAN 20 MG TAB PO SCH (18:00)
== END 2020-01-26 18:45 | DRG 562 ==
LOC: EDBD 02:47 → ER 02:57 → TELE 02:58 → TELE-WESTW 14:35
PROVIDERS: ADMIT Internal Medicine; ATTEND Internal Medicine
PROC: 0QSJXZZ Reposition Right Fibula, External Approach (ICD-10-PCS; principal; 2020-01-24)
PROC: 0QSGXZZ Reposition Right Tibia, External Approach (ICD-10-PCS; 2020-01-24)
PROC: 2W3QX2Z Immobilization of Right Lower Leg using Cast (ICD-10-PCS; 2020-01-24)
DX: S82.841A Displaced bimalleolar fracture of right lower leg, initial encounter for closed fracture (principal); G93.41 Metabolic encephalopathy; I48.20 Chronic atrial fibrillation, unspecified; E44.0 Moderate protein-calorie malnutrition; J96.10 Chronic respiratory failure, unspecified whether with hypoxia or hypercapnia; E87.6 Hypokalemia; F03.90 Unspecified dementia, unspecified severity, without behavioral disturbance, psychotic disturbance, mood disturbance, and anxiety; I11.0 Hypertensive heart disease with heart failure; I50.9 Heart failure, unspecified; I25.10 Atherosclerotic heart disease of native coronary artery without angina pectoris; J44.9 Chronic obstructive pulmonary disease, unspecified; F17.200 Nicotine dependence, unspecified, uncomplicated; W07.XXXA Fall from chair, initial encounter; F32.9 Major depressive disorder, single episode, unspecified; K21.9 Gastro-esophageal reflux disease without esophagitis; Z20.828 Contact with and (suspected) exposure to other viral communicable diseases; M10.9 Gout, unspecified; D64.9 Anemia, unspecified; E78.5 Hyperlipidemia, unspecified; E03.9 Hypothyroidism, unspecified; E11.9 Type 2 diabetes mellitus without complications; Z86.711 Personal history of pulmonary embolism; Z90.710 Acquired absence of both cervix and uterus; Z98.61 Coronary angioplasty status; Z99.81 Dependence on supplemental oxygen; Z79.01 Long term (current) use of anticoagulants; Z82.3 Family history of stroke; Z82.49 Family history of ischemic heart disease and other diseases of the circulatory system; Z83.3 Family history of diabetes mellitus; Y93.89 Activity, other specified; Y92.89 Other specified places as the place of occurrence of the external cause; Y99.8 Other external cause status; Z79.899 Other long term (current) drug therapy; Z90.49 Acquired absence of other specified parts of digestive tract; Z68.33 Body mass index [BMI] 33.0-33.9, adult; R55 Syncope and collapse
CPT/HCPCS: 36415; 70450; 70551; 71045; 72192; 73600; 73610; 76000; 78452; 80053; 81001; 82962; 83036; 83735; 83880; 84443; 84484; 84550; 85025; 85610; 85730; 86850; 86900; 86901; 93005; 93017; 93306; 93886; 94640; 97163; G0378; J0153; J0696; J1815; J3490

== ENCOUNTER 2021-09-29 16:52 | Emergency (ER) | payer OTHER, MEDICAID ==
[~2021-09-29] VITALS: Ht 160 cm; Wt 79.4 kg
[~2021-09-29 16:52] MED LIST changes: +ALBU0.084 NEB; +B-COCAP4 PO; +CHOL20007 PO; +CYAN1TAB11 PO; +GLIP-110 PO; -GLIP5TAB12 PO; +HYDR-531 PO; +IBUP400T22 PO; +LEVO50TA7 PO; +LORA-622 PO; -MELA3TAB27 PO; -METO-158 PO; +METO25TA5 PO; +OMEP-260 PO; -OMEP20CA74 PO; -POT20T PO; +POTA-180 PO; +TRAZ50TA2 PO
[2021-09-29 17:42] VITALS: BP 147/67
== END 2021-09-30 00:16 | disposition left against medical advice (07) ==
LOC: ER 16:52
DX: R21 Rash and other nonspecific skin eruption (principal); Z53.21 Procedure and treatment not carried out due to patient leaving prior to being seen by health care provider

== ENCOUNTER 2021-12-02 14:31 | Inpatient (IN) | payer MEDICARE, MEDICAID ==
[~2021-12-02] VITALS: Ht 160 cm; Wt 75.5 kg
[2021-12-02 15:35] LABS: Urine Bacteria NONE SEEN /hpf (None Seen); Urine Blood Negative /uL (Negative); Urine Specific Gravity 1.008 (1.001-1.035); Urine WBC 122 /hpf (0 - 5)
[2021-12-02 16:08] LABS: Albumin 3.3 g/dL (3.4-5.0); BUN/Creatinine Ratio 14.4; Calcium 8.9 mg/dL (8.5-10.1); Potassium 3.9 mmol/L (3.5-5.1)
[2021-12-02 16:10] LABS: Bilirubin, Total 0.7 mg/dL (0.2-1.0); Total Protein 6.1 g/dL (6.4-8.2)
[2021-12-02 16:18] LABS: Basophils # (auto) 0 10 ^3/uL (0-0.2); Basophils % (auto) 0.7 % (0.0-2.0); Eosinophils # (auto) 0.1 10 ^3/uL (0-0.8); Eosinophils % (auto) 1.6 % (0.0-7.0); Hematocrit 36.6 % (36.0-46.0); Lymphocytes # (auto) 1.2 10 ^3/uL (0.4-5.4); Lymphocytes % (auto) 18.1 % (10.0-50.0); Mean Corpuscular Hemoglobin 32.2 pg (28.0-32.0); Mean Corpuscular Hgb Conc. 32.9 g/dL (32.0-36.0); Monocytes # (auto) 0.5 10 ^3/uL (0-1.3); Monocytes % (auto) 8.4 % (0.0-12.0); Neutrophils # (auto) 4.6 10 ^3/uL (1.6-8.6); Neutrophils % (auto) 71.2 % (37.0-80.0); Nucleated Red Blood Cells % 0.1 %; Red Blood Cells 3.73 10^6/uL (4.0-5.20); White Blood Cell 6.5 10^3/uL (4.4-10.8)
[2021-12-03] MEDS ORDERED: cefTRIAXone 1GM/50ML D5W 50 ML IV ONE (01:15)
[2021-12-03] MEDS ORDERED: ONDANSETRON HCL 4 MG/2 ML VIAL IV PRN (01:15)
[2021-12-03] MEDS ORDERED: HYDROcodone-ACET 5/325MG TAB PO PRN (01:15)
[2021-12-03] MEDS ORDERED: TEMAZEPAM 15 MG CAP PO PRN (01:15)
[2021-12-03] MEDS ORDERED: ACETAMINOPHEN 325 MG TAB PO PRN (01:15)
[2021-12-03] MEDS ORDERED: DEXTROSE (50%) 50ML SYRG IV PRN (01:15)
[2021-12-03] MEDS ORDERED: HYDROmorphone HCL 2 MG/ML VL/or syr IV ONE (05:30)
[2021-12-03] MEDS: InsuLIN REG 1unit/0.01ml Soln (100units/ml) SC SCH ×4 (06:35→21:44)
[2021-12-03] MEDS: LEVOTHYROXINE SODIUM 50 MCG TAB PO SCH (06:36)
[2021-12-03] MEDS: GABAPENTIN 300 MG CAP PO SCH ×3 (06:36→21:43)
[2021-12-03] MEDS: ACCU-CHEK COMFORT CURVE STRIP VI SCH ×4 (07:11→21:16)
[2021-12-03] MEDS ORDERED: cefTRIAXone 1GM/50ML D5W 50 ML IV SCH ×2 (09:00→21:00)
[2021-12-03] MEDS: FUROSEMIDE 40 MG TAB PO SCH (10:45)
[2021-12-03] MEDS: ASPirin 81 mg TAB PO SCH (10:45)
[2021-12-03] MEDS: PHENAZOPYRIDINE HCL 100 MG TAB PO SCH ×2 (10:46→21:43)
[2021-12-03] MEDS: PANTOPRAZOLE 40 MG TAB PO SCH (10:46)
[2021-12-03] MEDS: METOPROLOL SUCCINATE XL 50 MG TAB PO SCH (10:48)
[2021-12-03 15:25] VITALS: BP 139/58
[2021-12-03 17:00] VITALS: BP 163/74
[2021-12-03] MEDS: RIVAROXABAN 15 MG TAB PO SCH (18:32)
[2021-12-03] MEDS: ATORVASTATIN 20 MG TAB PO SCH (21:43)
[2021-12-03 21:50] VITALS: BP 120/64
[2021-12-04] VITALS (8 sets, daily range): BP systolic 125–146; BP diastolic 57–78
[2021-12-04 06:09] LABS: Basophils # (auto) 0.1 10 ^3/uL (0-0.2); Basophils % (auto) 0.8 % (0.0-2.0); Eosinophils # (auto) 0.1 10 ^3/uL (0-0.8); Eosinophils % (auto) 1.3 % (0.0-7.0); Hematocrit 34.1 % (36.0-46.0); Hemoglobin 11.8 g/dL (12.2-16.2); Lymphocytes % (auto) 13.4 % (10.0-50.0); Mean Corpuscular Hemoglobin 33.1 pg (28.0-32.0); Mean Corpuscular Hgb Conc. 34.5 g/dL (32.0-36.0); Monocytes # (auto) 0.6 10 ^3/uL (0-1.3); Monocytes % (auto) 7.8 % (0.0-12.0); Neutrophils % (auto) 76.7 % (37.0-80.0); Red Blood Cells 3.55 10^6/uL (4.0-5.20); White Blood Cell 7.8 10^3/uL (4.4-10.8)
[2021-12-04] MEDS: GABAPENTIN 300 MG CAP PO SCH ×3 (06:10→23:00)
[2021-12-04 06:21] LABS: Calcium 8.4 mg/dL (8.5-10.1); Potassium 3.5 mmol/L (3.5-5.1)
[2021-12-04] MEDS: ACCU-CHEK COMFORT CURVE STRIP VI SCH ×4 (06:25→23:00)
[2021-12-04 06:27] LABS: Albumin 2.9 g/dL (3.4-5.0); BUN/Creatinine Ratio 10.9; Bilirubin, Total 0.8 mg/dL (0.2-1.0); Total Protein 5.8 g/dL (6.4-8.2)
[2021-12-04] MEDS: InsuLIN REG 1unit/0.01ml Soln (100units/ml) SC SCH ×4 (06:27→22:00)
[2021-12-04] MEDS: LEVOTHYROXINE SODIUM 50 MCG TAB PO SCH (06:34)
[2021-12-04] MEDS: ASPirin 81 mg TAB PO SCH (09:24)
[2021-12-04] MEDS: METOPROLOL SUCCINATE XL 50 MG TAB PO SCH (09:25)
[2021-12-04] MEDS: PANTOPRAZOLE 40 MG TAB PO SCH (09:25)
[2021-12-04] MEDS: PHENAZOPYRIDINE HCL 100 MG TAB PO SCH ×2 (09:25→23:00)
[2021-12-04] MEDS: FUROSEMIDE 40 MG TAB PO SCH (09:26)
[2021-12-04] MEDS ORDERED: SODIUM CHLORIDE 0.9% 1,000 ML IV ONE (12:15)
[2021-12-04] MEDS ORDERED: ALBUTEROL SULF 2.5 MG/0.5ML(0.5%) NEB SOLN NEB PRN (13:30)
[2021-12-04] MEDS ORDERED: ERTAPENEM SOD INJ 1 GM in SODIUM CHL 0.9% 50 ML IV ONE (15:30)
[2021-12-04] MEDS ORDERED: CHOL100047 PO (17:08)
[2021-12-04] MEDS ORDERED: LISI-275 PO (17:08)
[2021-12-04] MEDS ORDERED: ALBU1.257 IN (17:08)
[2021-12-04] MEDS ORDERED: ACET-6 PO (17:08)
[2021-12-04] MEDS ORDERED: PRAV20TA3 PO (17:08)
[2021-12-04] MEDS ORDERED: APIX5TAB PO (17:08)
[2021-12-04] MEDS ORDERED: INSRTEST SC (17:08)
[2021-12-04] MEDS ORDERED: METO-158 PO (17:08)
[2021-12-04] MEDS ORDERED: OMEP-260 PO (17:40)
[2021-12-04] MEDS ORDERED: GLIP5TAB12 PO (17:40)
[2021-12-04] MEDS ORDERED: ALBU0.084 NEB (17:40)
[2021-12-04] MEDS: RIVAROXABAN 15 MG TAB PO SCH (17:51)
[2021-12-04] MEDS: ATORVASTATIN 20 MG TAB PO SCH (23:00)
[2021-12-05 05:00] VITALS: BP 124/61
[2021-12-05] MEDS: InsuLIN REG 1unit/0.01ml Soln (100units/ml) SC SCH ×4 (07:00→22:00)
[2021-12-05] MEDS: GABAPENTIN 300 MG CAP PO SCH ×3 (07:10→22:48)
[2021-12-05] MEDS: LEVOTHYROXINE SODIUM 50 MCG TAB PO SCH (07:11)
[2021-12-05] MEDS: ACCU-CHEK COMFORT CURVE STRIP VI SCH ×4 (07:12→22:00)
[2021-12-05 09:00] VITALS: BP 138/70
[2021-12-05] MEDS: PANTOPRAZOLE 40 MG TAB PO SCH (09:29)
[2021-12-05] MEDS: PHENAZOPYRIDINE HCL 100 MG TAB PO SCH ×2 (09:29→22:48)
[2021-12-05] MEDS: ASPirin 81 mg TAB PO SCH (09:29)
[2021-12-05] MEDS: ERTAPENEM SOD INJ 1 GM in SODIUM CHL 0.9% 50 ML IV SCH (09:29)
[2021-12-05] MEDS: FUROSEMIDE 40 MG TAB PO SCH (09:30)
[2021-12-05] MEDS: METOPROLOL SUCCINATE XL 50 MG TAB PO SCH (09:30)
[2021-12-05 13:00] VITALS: BP 140/80
[2021-12-05 17:00] VITALS: BP 163/85
[2021-12-05] MEDS: RIVAROXABAN 15 MG TAB PO SCH (18:28)
[2021-12-05 22:00] VITALS: BP 146/65
[2021-12-05] MEDS: ATORVASTATIN 20 MG TAB PO SCH (22:48)
[2021-12-06 04:53] VITALS: BP 128/73
[2021-12-06] MEDS: GABAPENTIN 300 MG CAP PO SCH ×3 (06:42→22:05)
[2021-12-06] MEDS: LEVOTHYROXINE SODIUM 50 MCG TAB PO SCH (06:42)
[2021-12-06] MEDS: ACCU-CHEK COMFORT CURVE STRIP VI SCH ×4 (06:42→22:04)
[2021-12-06] MEDS: InsuLIN REG 1unit/0.01ml Soln (100units/ml) SC SCH ×4 (06:48→22:00)
[2021-12-06 09:00] VITALS: BP 136/73
[2021-12-06] MEDS: ASPirin 81 mg TAB PO SCH (09:43)
[2021-12-06] MEDS: ERTAPENEM SOD INJ 1 GM in SODIUM CHL 0.9% 50 ML IV SCH ×2 (09:43→11:30)
[2021-12-06] MEDS: PHENAZOPYRIDINE HCL 100 MG TAB PO SCH ×2 (09:44→22:04)
[2021-12-06] MEDS: FUROSEMIDE 40 MG TAB PO SCH (09:44)
[2021-12-06] MEDS: PANTOPRAZOLE 40 MG TAB PO SCH (09:44)
[2021-12-06] MEDS: METOPROLOL SUCCINATE XL 50 MG TAB PO SCH (09:45)
[2021-12-06 13:00] VITALS: BP 139/73
[2021-12-06 16:51] VITALS: BP 136/73
[2021-12-06] MEDS: RIVAROXABAN 15 MG TAB PO SCH (17:45)
[2021-12-06 22:00] VITALS: BP 120/83
[2021-12-06] MEDS: ATORVASTATIN 20 MG TAB PO SCH (22:05)
[2021-12-07 05:00] VITALS: BP 144/62
[2021-12-07] MEDS: GABAPENTIN 300 MG CAP PO SCH ×3 (06:14→21:30)
[2021-12-07] MEDS: ACCU-CHEK COMFORT CURVE STRIP VI SCH ×4 (06:31→21:31)
[2021-12-07] MEDS: LEVOTHYROXINE SODIUM 50 MCG TAB PO SCH (06:31)
[2021-12-07] MEDS: InsuLIN REG 1unit/0.01ml Soln (100units/ml) SC SCH ×4 (06:32→21:34)
[2021-12-07 09:00] VITALS: BP 150/82
[2021-12-07] MEDS: PHENAZOPYRIDINE HCL 100 MG TAB PO SCH ×2 (09:27→21:30)
[2021-12-07] MEDS: METOPROLOL SUCCINATE XL 50 MG TAB PO SCH (09:27)
[2021-12-07] MEDS: ASPirin 81 mg TAB PO SCH (09:27)
[2021-12-07] MEDS: FUROSEMIDE 40 MG TAB PO SCH (09:27)
[2021-12-07] MEDS: PANTOPRAZOLE 40 MG TAB PO SCH (09:27)
[2021-12-07 13:00] VITALS: BP 140/69
[2021-12-07 16:49] VITALS: BP 130/67
[2021-12-07] MEDS: RIVAROXABAN 15 MG TAB PO SCH (17:46)
[2021-12-07] MEDS: ATORVASTATIN 20 MG TAB PO SCH (21:30)
[2021-12-07 22:00] VITALS: BP 159/80
[2021-12-08 00:10] VITALS: BP 159/80
[2021-12-08 04:35] VITALS: BP 156/78
[2021-12-08] MEDS: GABAPENTIN 300 MG CAP PO SCH (05:11)
[2021-12-08 05:25] LABS: Basophils # (auto) 0.1 10 ^3/uL (0-0.2); Eosinophils # (auto) 0.3 10 ^3/uL (0-0.8); Eosinophils % (auto) 4.5 % (0.0-7.0); Hematocrit 36.2 % (36.0-46.0); Hemoglobin 12.1 g/dL (12.2-16.2); Lymphocytes # (auto) 1.6 10 ^3/uL (0.4-5.4); Lymphocytes % (auto) 25.8 % (10.0-50.0); Mean Corpuscular Hemoglobin 32.2 pg (28.0-32.0); Mean Corpuscular Hgb Conc. 33.6 g/dL (32.0-36.0); Mean Corpuscular Volume 95.9 fL (80.0-100.0); Monocytes # (auto) 0.6 10 ^3/uL (0-1.3); Monocytes % (auto) 10.6 % (0.0-12.0); Neutrophils # (auto) 3.5 10 ^3/uL (1.6-8.6); Neutrophils % (auto) 58.1 % (37.0-80.0); Red Blood Cells 3.77 10^6/uL (4.0-5.20); Red Cell Distribution Width 14.2 % (11.8-14.3); White Blood Cell 6.1 10^3/uL (4.4-10.8)
[2021-12-08] MEDS: LEVOTHYROXINE SODIUM 50 MCG TAB PO SCH (06:18)
[2021-12-08] MEDS: ACCU-CHEK COMFORT CURVE STRIP VI SCH ×2 (06:18→11:30)
[2021-12-08] MEDS: InsuLIN REG 1unit/0.01ml Soln (100units/ml) SC SCH ×2 (06:18→11:30)
[2021-12-08 08:24] VITALS: BP 136/70
[2021-12-08] MEDS: FUROSEMIDE 40 MG TAB PO SCH (09:09)
[2021-12-08] MEDS: PANTOPRAZOLE 40 MG TAB PO SCH (09:09)
[2021-12-08] MEDS: PHENAZOPYRIDINE HCL 100 MG TAB PO SCH (09:10)
[2021-12-08] MEDS: ASPirin 81 mg TAB PO SCH (09:10)
[2021-12-08] MEDS: METOPROLOL SUCCINATE XL 50 MG TAB PO SCH (09:11)
[2021-12-08] MEDS: ERTAPENEM SOD INJ 1 GM in SODIUM CHL 0.9% 50 ML IV SCH (11:28)
[2021-12-08 16:44] VITALS: BP 136/70
== END 2021-12-08 17:35 | DRG 871 ==
LOC: ER 14:31 → OVERFLOW 12-03 01:07 → CENTRAL 12-03 14:38
PROVIDERS: ADMIT Nurse Practitioner; ATTEND Internal Medicine
PROC: 05HC33Z Insertion of Infusion Device into Left Basilic Vein, Percutaneous Approach (ICD-10-PCS; principal; 2021-12-03)
PROC: B54NZZA Ultrasonography of Left Upper Extremity Veins, Guidance (ICD-10-PCS; 2021-12-03)
DX: A41.51 Sepsis due to Escherichia coli [E. coli] (principal); G93.41 Metabolic encephalopathy; Z16.12 Extended spectrum beta lactamase (ESBL) resistance; D68.69 Other thrombophilia; N30.00 Acute cystitis without hematuria; E78.5 Hyperlipidemia, unspecified; I11.0 Hypertensive heart disease with heart failure; I25.10 Atherosclerotic heart disease of native coronary artery without angina pectoris; I50.9 Heart failure, unspecified; J44.9 Chronic obstructive pulmonary disease, unspecified; F32.A Depression, unspecified; K21.9 Gastro-esophageal reflux disease without esophagitis; M10.9 Gout, unspecified; E11.21 Type 2 diabetes mellitus with diabetic nephropathy; E11.40 Type 2 diabetes mellitus with diabetic neuropathy, unspecified; Z82.49 Family history of ischemic heart disease and other diseases of the circulatory system; Z83.3 Family history of diabetes mellitus; Z86.711 Personal history of pulmonary embolism; Z90.710 Acquired absence of both cervix and uterus; Z82.3 Family history of stroke; Z90.49 Acquired absence of other specified parts of digestive tract; B96.20 Unspecified Escherichia coli [E. coli] as the cause of diseases classified elsewhere; Z79.84 Long term (current) use of oral hypoglycemic drugs
CPT/HCPCS: 36415; 71045; 80053; 81001; 82306; 82962; 83036; 84443; 84484; 85025; 87040; 87086; 87088; 87186; 94660; 96365; G0378; J0696; J1335; J1815

== ENCOUNTER 2021-12-27 22:39 | Inpatient (IN) | payer MEDICARE, MEDICAID ==
[~2021-12-27] VITALS: Ht 160 cm; Wt 81.0 kg
[~2021-12-27 22:39] MED LIST changes: +ACET-6 PO; -ALBUAER3 IN; +APIX5TAB PO; -ASPI-498 PO; -B-COCAP4 PO; +CHOL100047 PO; -CHOL20007 PO; -CYAN1TAB11 PO; -GLIP-110 PO; +GLIP5TAB12 PO; -HYDR-531 PO; -IBUP400T22 PO; +INSRTEST SC; +LISI-275 PO; -LORA-622 PO; +METO-158 PO; -METO25TA5 PO; +PRAV20TA3 PO; -RIVA15TA PO; -SERT-160 PO; -SIMV-13 PO
[2021-12-28] MEDS ORDERED: fentaNYL CITRATE 100 MCG/2 ML VL IV ONE ×2 (00:30→05:30)
[2021-12-28] MEDS ORDERED: KETOROLAC TROMETH 30 MG/ML 1ML VIAL IV ONE (00:30)
[2021-12-28 03:38] LABS: Basophils # (auto) 0 10 ^3/uL (0-0.2); Basophils % (auto) 0.4 % (0.0-2.0); Eosinophils # (auto) 0.2 10 ^3/uL (0-0.8); Eosinophils % (auto) 2.1 % (0.0-7.0); Hematocrit 33.4 % (36.0-46.0); Hemoglobin 11.3 g/dL (12.2-16.2); Lymphocytes # (auto) 0.9 10 ^3/uL (0.4-5.4); Lymphocytes % (auto) 8.7 % (10.0-50.0); Mean Corpuscular Hemoglobin 32.6 pg (28.0-32.0); Mean Corpuscular Hgb Conc. 33.7 g/dL (32.0-36.0); Mean Corpuscular Volume 96.7 fL (80.0-100.0); Monocytes # (auto) 0.6 10 ^3/uL (0-1.3); Monocytes % (auto) 5.7 % (0.0-12.0); Neutrophils # (auto) 8.6 10 ^3/uL (1.6-8.6); Neutrophils % (auto) 83.1 % (37.0-80.0); Nucleated Red Blood Cells % 0.1 %; Red Blood Cells 3.45 10^6/uL (4.0-5.20); Red Cell Distribution Width 13.3 % (11.8-14.3); White Blood Cell 10.3 10^3/uL (4.4-10.8)
[2021-12-28 03:43] LABS: INR 1.12 (0.9-1.15); Partial Thromboplastin Time 29.5 sec (24.6-33.4)
[2021-12-28 03:50] LABS: Albumin 2.8 g/dL (3.4-5.0); BUN/Creatinine Ratio 16.2; Calcium 7.5 mg/dL (8.5-10.1); Potassium 3.3 mmol/L (3.5-5.1)
[2021-12-28 03:53] LABS: Bilirubin, Total 1.1 mg/dL (0.2-1.0); Total Protein 5.3 g/dL (6.4-8.2)
[2021-12-28] MEDS ORDERED: ONDANSETRON HCL 4 MG/2 ML VIAL IV PRN (06:00)
[2021-12-28] MEDS ORDERED: ACETAMINOPHEN 325 MG TAB PO PRN (06:00)
[2021-12-28] MEDS ORDERED: DOCUSATE SOD 100 MG CAP PO PRN (06:00)
[2021-12-28] MEDS ORDERED: DEXTROSE (50%) 50ML SYRG IV PRN (06:00)
[2021-12-28] MEDS: SODIUM CHLOR 0.9% PF (SALINE LOCK) 10ML VIAL/SYR IV SCH ×3 (06:25→21:06)
[2021-12-28] MEDS: POTASSIUM CHL 20MEQ/100ML 100 ML IV SCH ×2 (06:25→10:33)
[2021-12-28] MEDS: ACCU-CHEK COMFORT CURVE STRIP VI SCH ×4 (06:25→21:04)
[2021-12-28] MEDS ORDERED: MORPHINE SULFATE INJ 2 MG/ml SYRG IV PRN (06:30)
[2021-12-28] MEDS ORDERED: NITROGLYCERIN 0.4 MG SL TAB SL PRN (06:30)
[2021-12-28 06:35] LABS: Basophils # (auto) 0.1 10 ^3/uL (0-0.2); Basophils % (auto) 0.8 % (0.0-2.0); Eosinophils # (auto) 0.1 10 ^3/uL (0-0.8); Eosinophils % (auto) 1.3 % (0.0-7.0); Hematocrit 33.6 % (36.0-46.0); Hemoglobin 11.3 g/dL (12.2-16.2); Lymphocytes # (auto) 1.3 10 ^3/uL (0.4-5.4); Lymphocytes % (auto) 13.9 % (10.0-50.0); Mean Corpuscular Hemoglobin 31.9 pg (28.0-32.0); Mean Corpuscular Hgb Conc. 33.5 g/dL (32.0-36.0); Mean Corpuscular Volume 95.3 fL (80.0-100.0); Monocytes # (auto) 0.7 10 ^3/uL (0-1.3); Monocytes % (auto) 7.4 % (0.0-12.0); Neutrophils # (auto) 7.2 10 ^3/uL (1.6-8.6); Neutrophils % (auto) 76.6 % (37.0-80.0); Red Blood Cells 3.53 10^6/uL (4.0-5.20); Red Cell Distribution Width 13.6 % (11.8-14.3); White Blood Cell 9.3 10^3/uL (4.4-10.8)
[2021-12-28] MEDS: InsuLIN REG 1unit/0.01ml Soln (100units/ml) SC SCH ×4 (06:35→21:05)
[2021-12-28 06:52] LABS: Albumin 2.7 g/dL (3.4-5.0); BUN/Creatinine Ratio 15.5; Calcium 7.7 mg/dL (8.5-10.1); Potassium 3.6 mmol/L (3.5-5.1)
[2021-12-28 06:55] LABS: Bilirubin, Total 1.2 mg/dL (0.2-1.0); Total Protein 5.4 g/dL (6.4-8.2)
[2021-12-28] MEDS ORDERED: ENOXAPARIN SOD 40 MG/0.4 ML SYRINGE SC SCH (10:00)
[2021-12-28] MEDS ORDERED: FUROSEMIDE 20 MG/2 ML VIAL IV SCH (10:00)
[2021-12-28] MEDS: POTASSIUM CHL 20 Meq TABLET PO SCH (10:29)
[2021-12-28] MEDS: FAMOTIDINE (10MG/ML) 2ML VL IV SCH (10:30)
[2021-12-28 11:13] LABS: Urine Bacteria NONE SEEN /hpf (None Seen); Urine Blood TRACE /uL (Negative); Urine Specific Gravity 1.018 (1.001-1.035); Urine WBC 13 /hpf (0 - 5)
[2021-12-28] MEDS: MORPHINE SULFATE INJ 2 MG/ml SYRG IV PRN (14:00)
[2021-12-28] MEDS: GABAPENTIN 300 MG CAP PO SCH ×2 (14:14→21:04)
[2021-12-28 17:00] VITALS: BP 120/48
[2021-12-28] MEDS: ENOXAPARIN SOD 40 MG/0.4 ML SYRINGE SC SCH (21:05)
[2021-12-28] MEDS: METOPROLOL TARTRATE 50 MG TAB PO SCH (21:05)
[2021-12-28] MEDS: traZODone HCL 50 MG TAB PO SCH (21:06)
[2021-12-28 22:00] VITALS: BP 104/42
[2021-12-29 05:00] VITALS: BP 127/53
[2021-12-29] MEDS: MORPHINE SULFATE INJ 2 MG/ml SYRG IV PRN ×2 (05:38→10:20)
[2021-12-29 06:37] LABS: Basophils # (auto) 0.1 10 ^3/uL (0-0.2); Basophils % (auto) 0.9 % (0.0-2.0); Eosinophils # (auto) 0.4 10 ^3/uL (0-0.8); Eosinophils % (auto) 6.1 % (0.0-7.0); Hematocrit 32.2 % (36.0-46.0); Hemoglobin 11.2 g/dL (12.2-16.2); Lymphocytes % (auto) 14.4 % (10.0-50.0); Mean Corpuscular Hgb Conc. 34.8 g/dL (32.0-36.0); Mean Corpuscular Volume 94.8 fL (80.0-100.0); Monocytes # (auto) 0.5 10 ^3/uL (0-1.3); Monocytes % (auto) 7.5 % (0.0-12.0); Neutrophils # (auto) 4.9 10 ^3/uL (1.6-8.6); Neutrophils % (auto) 71.1 % (37.0-80.0); White Blood Cell 6.8 10^3/uL (4.4-10.8)
[2021-12-29 06:40] LABS: Potassium 3.7 mmol/L (3.5-5.1)
[2021-12-29 06:47] LABS: Albumin 2.7 g/dL (3.4-5.0); BUN/Creatinine Ratio 15.7; Bilirubin, Total 1.4 mg/dL (0.2-1.0); Calcium 8.1 mg/dL (8.5-10.1); Total Protein 5.4 g/dL (6.4-8.2)
[2021-12-29] MEDS: InsuLIN REG 1unit/0.01ml Soln (100units/ml) SC SCH ×4 (07:00→21:29)
[2021-12-29] MEDS: LEVOTHYROXINE SODIUM 50 MCG TAB PO SCH ×2 (07:00→07:04)
[2021-12-29] MEDS: GABAPENTIN 300 MG CAP PO SCH ×3 (07:04→21:29)
[2021-12-29] MEDS: ACCU-CHEK COMFORT CURVE STRIP VI SCH ×4 (07:04→21:27)
[2021-12-29] MEDS: SODIUM CHLOR 0.9% PF (SALINE LOCK) 10ML VIAL/SYR IV SCH ×3 (07:05→21:28)
[2021-12-29 08:25] VITALS: BP 123/55
[2021-12-29] MEDS: POTASSIUM CHL 20 Meq TABLET PO SCH (10:00)
[2021-12-29] MEDS: ENOXAPARIN SOD 40 MG/0.4 ML SYRINGE SC SCH ×2 (10:00→21:28)
[2021-12-29] MEDS: glipiZIDE 5 MG TAB PO SCH (10:00)
[2021-12-29] MEDS: LISINOPRIL 5 MG TAB PO SCH (10:00)
[2021-12-29] MEDS: METOPROLOL TARTRATE 50 MG TAB PO SCH ×2 (10:00→21:28)
[2021-12-29] MEDS: PRAVASTATIN SODIUM 20 MG TAB PO SCH (10:00)
[2021-12-29] MEDS: ALLOPURINOL 100 MG TAB PO SCH (10:00)
[2021-12-29] MEDS: FUROSEMIDE 40 MG TAB PO SCH (10:00)
[2021-12-29] MEDS: FAMOTIDINE (10MG/ML) 2ML VL IV SCH (10:21)
[2021-12-29] MEDS ORDERED: SODIUM CHLORIDE LOCK 10 ML ONE (11:23)
[2021-12-29] MEDS ORDERED: MORPHINE SULF PF 5 MG/10 ML VIAL ONE (11:23)
[2021-12-29] MEDS ORDERED: fentaNYL CITRATE 100 MCG/2 ML VL ONE ×2 (11:23→13:31)
[2021-12-29] MEDS ORDERED: MIDAZOLAM HCL 2MG/2ML 2ml VIAL (1mg/ml) ONE ×2 (11:23→13:31)
[2021-12-29] MEDS ORDERED: PROPOFOL 10 MG/ML 20 ML IV ONE ×2 (11:23→13:52)
[2021-12-29] MEDS ORDERED: ONDANSETRON HCL 4 MG/2 ML VIAL ONE ×2 (11:23→14:28)
[2021-12-29] MEDS ORDERED: ceFAZolin 1GM/50ML 100 ML IV ONE (12:05)
[2021-12-29] MEDS ORDERED: BUPIVACAINE 0.25% INJ 50ML VIAL ONE (13:06)
[2021-12-29] MEDS ORDERED: KETAMINE HCL 10 ML ONE (14:27)
[2021-12-29] MEDS ORDERED: ONDANSETRON HCL 4 MG/2 ML VIAL IV PRN (14:45)
[2021-12-29] MEDS ORDERED: HYDROmorphone HCL 2 MG/ML VL/or syr IV PRN (14:45)
[2021-12-29] MEDS: ceFAZolin 2 GM in D5W 5% 100 ML IV SCH (16:00)
[2021-12-29 17:00] VITALS: BP 115/64
[2021-12-29] MEDS: traZODone HCL 50 MG TAB PO SCH (21:29)
[2021-12-29 22:00] VITALS: BP 135/55
[2021-12-30] MEDS: ceFAZolin 2 GM in D5W 5% 100 ML IV SCH ×3 (00:58→18:01)
[2021-12-30 05:15] VITALS: BP 121/59
[2021-12-30] MEDS: GABAPENTIN 300 MG CAP PO SCH ×3 (05:37→21:28)
[2021-12-30] MEDS: HYDROcodone-ACET 5/325MG TAB PO PRN ×2 (05:37→15:39)
[2021-12-30] MEDS: SODIUM CHLOR 0.9% PF (SALINE LOCK) 10ML VIAL/SYR IV SCH ×3 (05:37→21:48)
[2021-12-30] MEDS: LEVOTHYROXINE SODIUM 50 MCG TAB PO SCH ×2 (06:15→06:16)
[2021-12-30] MEDS: InsuLIN REG 1unit/0.01ml Soln (100units/ml) SC SCH ×4 (06:15→21:49)
[2021-12-30] MEDS: ACCU-CHEK COMFORT CURVE STRIP VI SCH ×4 (06:15→21:29)
[2021-12-30 08:15] VITALS: BP 98/53
[2021-12-30] MEDS: PRAVASTATIN SODIUM 20 MG TAB PO SCH (10:00)
[2021-12-30] MEDS: ALLOPURINOL 100 MG TAB PO SCH (10:00)
[2021-12-30] MEDS: POTASSIUM CHL 20 Meq TABLET PO SCH (10:00)
[2021-12-30] MEDS: FUROSEMIDE 40 MG TAB PO SCH (10:00)
[2021-12-30] MEDS: LISINOPRIL 5 MG TAB PO SCH (10:00)
[2021-12-30] MEDS: METOPROLOL TARTRATE 50 MG TAB PO SCH ×2 (10:00→21:28)
[2021-12-30] MEDS: ENOXAPARIN SOD 40 MG/0.4 ML SYRINGE SC SCH ×2 (10:00→21:29)
[2021-12-30] MEDS: FAMOTIDINE (10MG/ML) 2ML VL IV SCH (10:38)
[2021-12-30] MEDS: glipiZIDE 5 MG TAB PO SCH (10:39)
[2021-12-30 12:52] VITALS: BP 116/51
[2021-12-30 16:33] VITALS: BP 129/55
[2021-12-30] MEDS: traZODone HCL 50 MG TAB PO SCH (21:28)
[2021-12-30 22:55] VITALS: BP 118/62
[2021-12-31 03:45] VITALS: BP 136/69
[2021-12-31] MEDS: SODIUM CHLOR 0.9% PF (SALINE LOCK) 10ML VIAL/SYR IV SCH ×3 (05:43→21:06)
[2021-12-31] MEDS: GABAPENTIN 300 MG CAP PO SCH ×3 (05:43→21:09)
[2021-12-31] MEDS: LEVOTHYROXINE SODIUM 50 MCG TAB PO SCH ×2 (06:16→06:17)
[2021-12-31] MEDS: InsuLIN REG 1unit/0.01ml Soln (100units/ml) SC SCH ×4 (06:17→21:06)
[2021-12-31] MEDS: ACCU-CHEK COMFORT CURVE STRIP VI SCH ×4 (06:17→21:06)
[2021-12-31 09:00] VITALS: BP 113/59
[2021-12-31] MEDS: ceFAZolin 2 GM in D5W 5% 100 ML IV SCH ×5 (09:57→23:40)
[2021-12-31] MEDS: FAMOTIDINE (10MG/ML) 2ML VL IV SCH (10:01)
[2021-12-31] MEDS: METOPROLOL TARTRATE 50 MG TAB PO SCH ×2 (10:01→21:09)
[2021-12-31] MEDS: ENOXAPARIN SOD 40 MG/0.4 ML SYRINGE SC SCH ×2 (10:01→21:10)
[2021-12-31] MEDS: LISINOPRIL 5 MG TAB PO SCH (10:01)
[2021-12-31] MEDS: POTASSIUM CHL 20 Meq TABLET PO SCH (10:02)
[2021-12-31] MEDS: PRAVASTATIN SODIUM 20 MG TAB PO SCH (10:02)
[2021-12-31] MEDS: ALLOPURINOL 100 MG TAB PO SCH (10:02)
[2021-12-31] MEDS: FUROSEMIDE 40 MG TAB PO SCH (10:02)
[2021-12-31] MEDS: glipiZIDE 5 MG TAB PO SCH (10:22)
[2021-12-31] MEDS: MORPHINE SULFATE INJ 2 MG/ml SYRG IV PRN ×2 (10:37→19:52)
[2021-12-31 12:23] LABS: Basophils # (auto) 0 10 ^3/uL (0-0.2); Basophils % (auto) 0.2 % (0.0-2.0); Eosinophils # (auto) 0.3 10 ^3/uL (0-0.8); Eosinophils % (auto) 3.3 % (0.0-7.0); Hematocrit 29.9 % (36.0-46.0); Hemoglobin 9.7 g/dL (12.2-16.2); Lymphocytes % (auto) 9.8 % (10.0-50.0); Mean Corpuscular Hemoglobin 31.8 pg (28.0-32.0); Mean Corpuscular Hgb Conc. 32.6 g/dL (32.0-36.0); Mean Corpuscular Volume 97.5 fL (80.0-100.0); Monocytes # (auto) 0.7 10 ^3/uL (0-1.3); Monocytes % (auto) 7.1 % (0.0-12.0); Neutrophils # (auto) 7.9 10 ^3/uL (1.6-8.6); Neutrophils % (auto) 79.6 % (37.0-80.0); Red Blood Cells 3.06 10^6/uL (4.0-5.20); Red Cell Distribution Width 13.4 % (11.8-14.3); White Blood Cell 9.9 10^3/uL (4.4-10.8)
[2021-12-31 12:37] LABS: Albumin 2.1 g/dL (3.4-5.0); Calcium 8.6 mg/dL (8.5-10.1); Magnesium 2.3 mg/dL (1.6-2.6); Potassium 3.9 mmol/L (3.5-5.1)
[2021-12-31 12:40] LABS: BUN/Creatinine Ratio 14.9; Bilirubin, Total 0.6 mg/dL (0.2-1.0); Phosphorus 2.4 mg/dL (2.5-4.90); Total Protein 5.4 g/dL (6.4-8.2)
[2021-12-31 13:00] VITALS: BP 107/57
[2021-12-31 17:01] VITALS: BP 145/67
[2021-12-31] MEDS: traZODone HCL 50 MG TAB PO SCH (21:10)
[2021-12-31 23:03] VITALS: BP 111/64
[2022-01-01] MEDS: LEVOTHYROXINE SODIUM 50 MCG TAB PO SCH ×2 (05:12→05:58)
[2022-01-01 05:18] VITALS: BP 119/45
[2022-01-01] MEDS: GABAPENTIN 300 MG CAP PO SCH ×3 (05:57→21:57)
[2022-01-01] MEDS: SODIUM CHLOR 0.9% PF (SALINE LOCK) 10ML VIAL/SYR IV SCH ×3 (05:57→22:02)
[2022-01-01] MEDS: ACCU-CHEK COMFORT CURVE STRIP VI SCH ×4 (05:58→22:00)
[2022-01-01] MEDS: InsuLIN REG 1unit/0.01ml Soln (100units/ml) SC SCH ×4 (06:06→22:00)
[2022-01-01] MEDS: FAMOTIDINE (10MG/ML) 2ML VL IV SCH (08:13)
[2022-01-01] MEDS: POTASSIUM CHL 20 Meq TABLET PO SCH (08:13)
[2022-01-01] MEDS: METOPROLOL TARTRATE 50 MG TAB PO SCH ×2 (08:14→21:58)
[2022-01-01] MEDS: ALLOPURINOL 100 MG TAB PO SCH (08:15)
[2022-01-01] MEDS: LISINOPRIL 5 MG TAB PO SCH (08:15)
[2022-01-01] MEDS: ENOXAPARIN SOD 40 MG/0.4 ML SYRINGE SC SCH (08:16)
[2022-01-01 08:31] VITALS: BP 125/62
[2022-01-01] MEDS: APIXABAN 5 MG TAB PO SCH ×2 (10:30→21:59)
[2022-01-01] MEDS: PRAVASTATIN SODIUM 20 MG TAB PO SCH (10:30)
[2022-01-01] MEDS: glipiZIDE 5 MG TAB PO SCH (10:32)
[2022-01-01] MEDS: FUROSEMIDE 40 MG TAB PO SCH (10:33)
[2022-01-01] MEDS: ceFAZolin 2 GM in D5W 5% 100 ML IV SCH ×2 (11:16→18:22)
[2022-01-01 12:39] VITALS: BP 114/57
[2022-01-01 16:50] VITALS: BP 139/56
[2022-01-01 20:00] VITALS: BP 114/62
[2022-01-01] MEDS: traZODone HCL 50 MG TAB PO SCH (21:59)
[2022-01-01 22:00] VITALS: BP 114/50
[2022-01-02] MEDS: ceFAZolin 2 GM in D5W 5% 100 ML IV SCH ×3 (02:51→18:00)
[2022-01-02 05:00] VITALS: BP 135/50
[2022-01-02] MEDS: SODIUM CHLOR 0.9% PF (SALINE LOCK) 10ML VIAL/SYR IV SCH ×2 (06:00→13:26)
[2022-01-02] MEDS: ACCU-CHEK COMFORT CURVE STRIP VI SCH ×3 (07:00→17:34)
[2022-01-02] MEDS: InsuLIN REG 1unit/0.01ml Soln (100units/ml) SC SCH ×3 (07:00→17:00)
[2022-01-02] MEDS: LEVOTHYROXINE SODIUM 50 MCG TAB PO SCH ×2 (07:00→07:11)
[2022-01-02] MEDS: GABAPENTIN 300 MG CAP PO SCH ×2 (07:11→13:26)
[2022-01-02 08:00] VITALS: BP 123/51
[2022-01-02 09:00] VITALS: BP 123/51
[2022-01-02] MEDS: METOPROLOL TARTRATE 50 MG TAB PO SCH (09:53)
[2022-01-02] MEDS: PRAVASTATIN SODIUM 20 MG TAB PO SCH (09:53)
[2022-01-02] MEDS: APIXABAN 5 MG TAB PO SCH (09:53)
[2022-01-02] MEDS: HYDROcodone-ACET 5/325MG TAB PO PRN (09:53)
[2022-01-02] MEDS: ALLOPURINOL 100 MG TAB PO SCH (09:54)
[2022-01-02] MEDS: POTASSIUM CHL 20 Meq TABLET PO SCH (09:54)
[2022-01-02] MEDS: LISINOPRIL 5 MG TAB PO SCH (09:55)
[2022-01-02] MEDS: FAMOTIDINE (10MG/ML) 2ML VL IV SCH (09:55)
[2022-01-02] MEDS: FUROSEMIDE 40 MG TAB PO SCH (09:55)
[2022-01-02] MEDS: glipiZIDE 5 MG TAB PO SCH (10:07)
[2022-01-02 12:31] VITALS: BP 117/56
[2022-01-02 17:00] VITALS: BP 110/58
[2022-01-02] MEDS ORDERED: MAGNESIUM CITRATE SOLUTION 300 ML BTL PO ONE (18:00)
== END 2022-01-02 20:45 | DRG 480 ==
LOC: EDBD 22:39 → ER 22:39 → EDUNIT# 22:39 → OVERFLOW 12-28 06:22 → WEST WING 12-28 14:06
PROVIDERS: ADMIT Nurse Practitioner Family; ATTEND Internal Medicine
PROC: BQ111ZZ Fluoroscopy of Left Hip using Low Osmolar Contrast (ICD-10-PCS; 2021-12-29)
PROC: 0QS736Z Reposition Left Upper Femur with Intramedullary Internal Fixation Device, Percutaneous Approach (ICD-10-PCS; principal; 2021-12-29 13:25)
DX: S72.142A Displaced intertrochanteric fracture of left femur, initial encounter for closed fracture (principal); I50.23 Acute on chronic systolic (congestive) heart failure; I48.20 Chronic atrial fibrillation, unspecified; E87.6 Hypokalemia; E03.9 Hypothyroidism, unspecified; E78.5 Hyperlipidemia, unspecified; I11.0 Hypertensive heart disease with heart failure; M10.9 Gout, unspecified; I25.10 Atherosclerotic heart disease of native coronary artery without angina pectoris; E66.01 Morbid (severe) obesity due to excess calories; F32.A Depression, unspecified; E11.65 Type 2 diabetes mellitus with hyperglycemia; Z20.822 Contact with and (suspected) exposure to COVID-19; J44.9 Chronic obstructive pulmonary disease, unspecified; K21.9 Gastro-esophageal reflux disease without esophagitis; W01.0XXA Fall on same level from slipping, tripping and stumbling without subsequent striking against object, initial encounter; Z79.01 Long term (current) use of anticoagulants; Z79.84 Long term (current) use of oral hypoglycemic drugs; Z79.899 Other long term (current) drug therapy; Z82.3 Family history of stroke; Z82.49 Family history of ischemic heart disease and other diseases of the circulatory system; Z83.3 Family history of diabetes mellitus; Z86.711 Personal history of pulmonary embolism; Z90.49 Acquired absence of other specified parts of digestive tract; Z90.710 Acquired absence of both cervix and uterus; Z95.5 Presence of coronary angioplasty implant and graft; Z68.31 Body mass index [BMI] 31.0-31.9, adult; Y93.89 Activity, other specified; Y92.098 Other place in other non-institutional residence as the place of occurrence of the external cause; Y99.8 Other external cause status
CPT/HCPCS: 36415; 71045; 72170; 73502; 74018; 76000; 80053; 80061; 81001; 82962; 83735; 83880; 84100; 84443; 85025; 85610; 85730; 93005; 93306; 96374; 96375; 97110; 97530; G0378; J0690; J1815; J1885; J2250; J2405; J2704; J3480; J3490; J7060

== ENCOUNTER 2023-02-10 15:34 | Inpatient (IN) | payer MEDICARE, MEDICAID ==
[~2023-02-10] VITALS: Ht 160 cm; Wt 120.0 kg
[~2023-02-10 15:34] MED LIST changes: +AMIO200T33 PO; +GABA-1250 PO; -GABA300C10 PO; +HYDR-4902 PO; +MAGN400T40 PO; +MET25T PO; -METO-158 PO; -OMEP-260 PO; +OMEP1CAP70 PO; +TRAZ-227 PO; -TRAZ50TA2 PO
[2023-02-10 17:06] LABS: Basophils # (auto) 0.1 10 ^3/uL (0-0.2); Basophils % (auto) 0.8 % (0.0-2.0); Eosinophils # (auto) 0.2 10 ^3/uL (0-0.8); Eosinophils % (auto) 2.4 % (0.0-7.0); Hemoglobin 11.8 g/dL (12.2-16.2); Lymphocytes # (auto) 1.2 10 ^3/uL (0.4-5.4); Lymphocytes % (auto) 18.2 % (10.0-50.0); Mean Corpuscular Hemoglobin 32.1 pg (28.0-32.0); Mean Corpuscular Hgb Conc. 32.9 g/dL (32.0-36.0); Mean Corpuscular Volume 97.8 fL (80.0-100.0); Monocytes # (auto) 0.6 10 ^3/uL (0-1.3); Monocytes % (auto) 8.5 % (0.0-12.0); Neutrophils # (auto) 4.8 10 ^3/uL (1.6-8.6); Neutrophils % (auto) 70.1 % (37.0-80.0); Nucleated Red Blood Cells % 0.1 %; Red Blood Cells 3.68 10^6/uL (4.0-5.20); Red Cell Distribution Width 15.3 % (11.8-14.3); White Blood Cell 6.8 10^3/uL (4.4-10.8)
[2023-02-10 17:33] LABS: Alanine Aminotransferase 19 U/L (7-40); Albumin 3.8 g/dL (3.2-4.8); Alkaline Phosphatase 79 U/L (46-116); Aspartate Aminotransferase 22 U/L (13-40); BUN/Creatinine Ratio 15.8 (10.0-20.0); Bilirubin, Total 0.9 mg/dL (0.2-1.0); Blood Urea Nitrogen 18 mg/dL (9-23); Calcium 8.9 mg/dL (8.5-10.1); Chloride 110 mmol/L (98-107); Glucose 115 mg/dL (74-106); Potassium 4.3 mmol/L (3.5-5.1); Sodium 143 mmol/L (136-145); Total Protein 5.7 g/dL (5.7-8.2)
[2023-02-10 17:47] LABS: Anion Gap 0.6 (5-15); Carbon Dioxide 32.4 mmol/L (20-30)
[2023-02-10] MEDS ORDERED: IOHEXOL 350 MG/ML 100ML IJ ONE (17:49)
[2023-02-10 17:57] LABS: INR 1.12 (0.9-1.15); Partial Thromboplastin Time 29.5 SEC (24.5-34.5); Prothrombin Time 11.7 sec (9.3-11.8)
[2023-02-10] MEDS ORDERED: ACETAMINOPHEN 325 MG TAB PO PRN (22:00)
[2023-02-10] MEDS ORDERED: MORPHINE SULFATE INJ 2 MG/ml SYRG IV PRN (22:00)
[2023-02-10] MEDS ORDERED: TEMAZEPAM 15 MG CAP PO PRN (22:00)
[2023-02-10] MEDS ORDERED: NITROGLYCERIN 0.4 MG SL TAB SL PRN (22:00)
[2023-02-10] MEDS ORDERED: DEXTROSE (50%) 50ML SYRG IV PRN (22:15)
[2023-02-11] MEDS: METOPROLOL TARTRATE 25 MG TAB PO SCH ×3 (00:14→22:41)
[2023-02-11] MEDS: HYDROcodone-ACET 5/325MG TAB PO PRN (00:15)
[2023-02-11] MEDS: traZODone HCL 50 MG TAB PO SCH ×2 (00:15→22:42)
[2023-02-11] MEDS: GABAPENTIN 300 MG CAP PO SCH ×4 (00:15→22:42)
[2023-02-11] MEDS: AMIODARONE HCL 200 MG TAB PO SCH ×3 (00:15→22:42)
[2023-02-11 04:46] LABS: Urine Bacteria FEW /hpf (None Seen); Urine Blood Negative /uL (Negative); Urine Clarity Clear (Clear); Urine Color Yellow (Yellow); Urine Protein, UAD Negative (Negative); Urine Specific Gravity 1.031 (1.001-1.035); Urine WBC 7 /hpf (0 - 5)
[2023-02-11] MEDS: ACCU-CHEK COMFORT CURVE STRIP VI SCH ×4 (06:42→22:00)
[2023-02-11] MEDS: LEVOTHYROXINE SODIUM 50 MCG TAB PO SCH (06:42)
[2023-02-11 06:43] LABS: Alanine Aminotransferase 14 U/L (7-40); Anion Gap 6.1 (5-15); BUN/Creatinine Ratio 12.5 (10.0-20.0); Blood Urea Nitrogen 15 mg/dL (9-23); Calcium 8.9 mg/dL (8.7-10.4); Carbon Dioxide 29.9 mmol/L (20-30); Chloride 107 mmol/L (98-107); Glucose 100 mg/dL (74-106); Magnesium 2.2 mg/dL (1.6-2.6); Potassium 3.4 mmol/L (3.5-5.1); Sodium 143 mmol/L (136-145)
[2023-02-11 06:44] LABS: Albumin 3.5 g/dL (3.2-4.8); Aspartate Aminotransferase 13 U/L (13-40)
[2023-02-11 06:45] LABS: Bilirubin, Total 0.9 mg/dL (0.2-1.0); Total Protein 5.4 g/dL (5.7-8.2)
[2023-02-11 06:53] LABS: Basophils # (auto) 0 10 ^3/uL (0-0.2); Basophils % (auto) 0.9 % (0.0-2.0); Eosinophils # (auto) 0.2 10 ^3/uL (0-0.8); Eosinophils % (auto) 4.7 % (0.0-7.0); Hematocrit 33.3 % (36.0-46.0); Hemoglobin 11.1 g/dL (12.2-16.2); Lymphocytes # (auto) 1.5 10 ^3/uL (0.4-5.4); Lymphocytes % (auto) 28.8 % (10.0-50.0); Mean Corpuscular Hemoglobin 32.3 pg (28.0-32.0); Mean Corpuscular Hgb Conc. 33.3 g/dL (32.0-36.0); Mean Corpuscular Volume 97.1 fL (80.0-100.0); Monocytes # (auto) 0.5 10 ^3/uL (0-1.3); Neutrophils # (auto) 2.8 10 ^3/uL (1.6-8.6); Neutrophils % (auto) 55.6 % (37.0-80.0); Nucleated Red Blood Cells % 0.3 %; Red Blood Cells 3.43 10^6/uL (4.0-5.20); Red Cell Distribution Width 15.2 % (11.8-14.3); White Blood Cell 5.1 10^3/uL (4.4-10.8)
[2023-02-11 06:58] LABS: Alkaline Phosphatase 74 U/L (46-116)
[2023-02-11] MEDS ORDERED: InsuLIN REG 1unit/0.01ml Soln (100units/ml) SC SCH (07:00)
[2023-02-11] MEDS: PRAVASTATIN SODIUM 20 MG TAB PO SCH (10:43)
[2023-02-11] MEDS: LISINOPRIL 5 MG TAB PO SCH (10:44)
[2023-02-11] MEDS: FUROSEMIDE 40 MG TAB PO SCH (10:44)
[2023-02-11 14:20] VITALS: PULSE 70; RESP 20; O2SAT 95
[2023-02-11] MEDS: InsuLIN REG 1unit/0.01ml Soln (100units/ml) SC SCH (22:47)
[2023-02-11 23:00] VITALS: BP 147/71; PULSE 61; RESP 18; TEMP 97.6; O2SAT 93
[2023-02-12] VITALS (10 sets, daily range): BP systolic 95–147; BP diastolic 38–74; PULSE 50–74; RESP 14–20; TEMP 97.5–98.2; O2SAT 92–96
[2023-02-12] MEDS: LEVOTHYROXINE SODIUM 50 MCG TAB PO SCH (06:29)
[2023-02-12] MEDS: GABAPENTIN 300 MG CAP PO SCH ×3 (06:29→22:52)
[2023-02-12] MEDS: ACCU-CHEK COMFORT CURVE STRIP VI SCH ×4 (06:37→23:08)
[2023-02-12] MEDS: LISINOPRIL 5 MG TAB PO SCH (10:00)
[2023-02-12] MEDS: METOPROLOL TARTRATE 25 MG TAB PO SCH ×2 (10:00→22:00)
[2023-02-12] MEDS: PRAVASTATIN SODIUM 20 MG TAB PO SCH (11:06)
[2023-02-12] MEDS: AMIODARONE HCL 200 MG TAB PO SCH ×2 (11:06→22:53)
[2023-02-12] MEDS: FUROSEMIDE 40 MG TAB PO SCH (11:07)
[2023-02-12] MEDS ORDERED: POTASSIUM CHL 20 Meq TABLET PO ONE (11:30)
[2023-02-12] MEDS: HYDROcodone-ACET 5/325MG TAB PO PRN (12:49)
[2023-02-12] MEDS: PIPERACILLIN-TAZOB 3.375GM 100 ML IV SCH ×2 (14:20→22:55)
[2023-02-12] MEDS: InsuLIN REG 1unit/0.01ml Soln (100units/ml) SC SCH (22:45)
[2023-02-12] MEDS: traZODone HCL 50 MG TAB PO SCH (22:53)
[2023-02-13 04:46] VITALS: BP 130/58; PULSE 57; RESP 18; TEMP 98.3; O2SAT 91
[2023-02-13] MEDS: GABAPENTIN 300 MG CAP PO SCH ×2 (06:43→14:30)
[2023-02-13] MEDS: PIPERACILLIN-TAZOB 3.375GM 100 ML IV SCH ×2 (06:43→14:30)
[2023-02-13] MEDS: LEVOTHYROXINE SODIUM 50 MCG TAB PO SCH (06:43)
[2023-02-13] MEDS: ACCU-CHEK COMFORT CURVE STRIP VI SCH ×3 (06:48→17:34)
[2023-02-13 08:00] VITALS: PULSE 71; PULSE 74; RESP 14; O2SAT 93
[2023-02-13 09:00] VITALS: BP 132/50; PULSE 74; RESP 14; TEMP 97.5; O2SAT 93
[2023-02-13] MEDS: PRAVASTATIN SODIUM 20 MG TAB PO SCH (09:21)
[2023-02-13] MEDS: LISINOPRIL 5 MG TAB PO SCH (09:21)
[2023-02-13] MEDS: FUROSEMIDE 40 MG TAB PO SCH (09:22)
[2023-02-13] MEDS: AMIODARONE HCL 200 MG TAB PO SCH (09:22)
[2023-02-13] MEDS: METOPROLOL TARTRATE 25 MG TAB PO SCH (09:22)
[2023-02-13] MEDS ORDERED: DOCUSATE SOD 100 MG CAP PO SCH (10:00)
[2023-02-13 13:00] VITALS: BP 112/64; PULSE 64; RESP 12; TEMP 97.8; O2SAT 93
[2023-02-13] MEDS ORDERED: CEPH500C PO (14:19)
[2023-02-13] MEDS ORDERED: AMIO200T33 PO (14:19)
[2023-02-13] MEDS ORDERED: APIX2.5T PO (14:19)
[2023-02-13 14:46] VITALS: BP 132/50; PULSE 74
[2023-02-13 17:00] VITALS: BP 101/51; PULSE 65; RESP 16; TEMP 98.5; O2SAT 98
== END 2023-02-13 19:08 | disposition home health service (06) | DRG 204 ==
LOC: ER 15:34 → TELE 22:05 → TELE-CENTR 02-11 21:28
PROVIDERS: ADMIT Nurse Practitioner Family; ATTEND Nurse Practitioner Family
DX: R04.2 Hemoptysis (principal); I48.19 Other persistent atrial fibrillation; J98.11 Atelectasis; N30.00 Acute cystitis without hematuria; Z68.42 Body mass index [BMI] 45.0-49.9, adult; I50.32 Chronic diastolic (congestive) heart failure; D68.32 Hemorrhagic disorder due to extrinsic circulating anticoagulants; T45.515A Adverse effect of anticoagulants, initial encounter; H11.32 Conjunctival hemorrhage, left eye; R04.0 Epistaxis; E03.9 Hypothyroidism, unspecified; E11.65 Type 2 diabetes mellitus with hyperglycemia; E78.5 Hyperlipidemia, unspecified; F32.A Depression, unspecified; I11.0 Hypertensive heart disease with heart failure; I25.10 Atherosclerotic heart disease of native coronary artery without angina pectoris; J44.9 Chronic obstructive pulmonary disease, unspecified; E66.01 Morbid (severe) obesity due to excess calories; K21.9 Gastro-esophageal reflux disease without esophagitis; M10.9 Gout, unspecified; Z79.01 Long term (current) use of anticoagulants; Z79.899 Other long term (current) drug therapy; Z82.3 Family history of stroke; Z82.49 Family history of ischemic heart disease and other diseases of the circulatory system; Z83.3 Family history of diabetes mellitus; Z86.711 Personal history of pulmonary embolism; Z90.49 Acquired absence of other specified parts of digestive tract; Z90.710 Acquired absence of both cervix and uterus; Z98.61 Coronary angioplasty status; Z79.84 Long term (current) use of oral hypoglycemic drugs
CPT/HCPCS: 36415; 70450; 71275; 80053; 81001; 82962; 83735; 83880; 84484; 85025; 85610; 85730; 93005; 93970; G0378; J1815; J2543

== ENCOUNTER 2023-02-18 00:45 | Inpatient (IN) | payer MEDICARE, MEDICAID ==
[~2023-02-18] VITALS: Ht 152.4 cm; Wt 82.0 kg
[~2023-02-18 00:45] MED LIST changes: +APIX2.5T PO; -APIX5TAB PO; +CEPH500C PO; -GLIP5TAB12 PO; -INSRTEST SC
[2023-02-18 01:40] VITALS: PULSE 78; RESP 20; O2SAT 93
[2023-02-18 02:07] LABS: Basophils # (auto) 0 10 ^3/uL (0-0.2); Basophils % (auto) 0.8 % (0.0-2.0); Eosinophils # (auto) 0.2 10 ^3/uL (0-0.8); Eosinophils % (auto) 2.8 % (0.0-7.0); Hematocrit 34.6 % (36.0-46.0); Hemoglobin 11.3 g/dL (12.2-16.2); Lymphocytes # (auto) 1.1 10 ^3/uL (0.4-5.4); Lymphocytes % (auto) 18.3 % (10.0-50.0); Mean Corpuscular Hemoglobin 31.7 pg (28.0-32.0); Mean Corpuscular Hgb Conc. 32.6 g/dL (32.0-36.0); Mean Corpuscular Volume 97.3 fL (80.0-100.0); Monocytes # (auto) 0.5 10 ^3/uL (0-1.3); Monocytes % (auto) 9.1 % (0.0-12.0); Neutrophils # (auto) 4.2 10 ^3/uL (1.6-8.6); Nucleated Red Blood Cells % 0.1 %; Red Blood Cells 3.56 10^6/uL (4.0-5.20); Red Cell Distribution Width 14.6 % (11.8-14.3)
[2023-02-18 02:25] LABS: Alanine Aminotransferase 16 U/L (7-40); Albumin 4.1 g/dL (3.2-4.8); Alkaline Phosphatase 77 U/L (46-116); Anion Gap 7.4 (5-15); Aspartate Aminotransferase 19 U/L (13-40); BUN/Creatinine Ratio 14.8 (10.0-20.0); Blood Urea Nitrogen 20 mg/dL (9-23); Calcium 9.2 mg/dL (8.7-10.4); Carbon Dioxide 27.6 mmol/L (20-30); Chloride 104 mmol/L (98-107); Glucose 211 mg/dL (74-106); Potassium 3.9 mmol/L (3.5-5.1); Sodium 139 mmol/L (136-145)
[2023-02-18 02:26] LABS: Bilirubin, Total 0.6 mg/dL (0.2-1.0); Total Protein 6.3 g/dL (5.7-8.2)
[2023-02-18] MEDS ORDERED: fentaNYL CITRATE 100 MCG/2 ML VL IV ONE (03:30)
[2023-02-18 05:59] LABS: Urine Bacteria NONE SEEN /hpf (None Seen); Urine Blood Negative /uL (Negative); Urine Clarity Clear (Clear); Urine Hyaline Cast FEW /lpf (0 - 2); Urine Protein, UAD Negative (Negative); Urine Specific Gravity 1.012 (1.001-1.035); Urine WBC 1 /hpf (0 - 5)
[2023-02-18 06:01] LABS: Urine Color Orange (Yellow)
[2023-02-18 08:01] VITALS: PULSE 70; RESP 18; O2SAT 96
[2023-02-18] MEDS ORDERED: NITROGLYCERIN 0.4 MG SL TAB SL PRN (08:15)
[2023-02-18] MEDS ORDERED: ACETAMINOPHEN 325 MG TAB PO PRN (08:15)
[2023-02-18] MEDS ORDERED: MORPHINE SULFATE INJ 2 MG/ml SYRG IV PRN (08:15)
[2023-02-18] MEDS: SODIUM CHLORIDE 0.9% 1,000 ML IV SCH ×3 (08:23→16:35)
[2023-02-18] MEDS: HYDROcodone-ACET 5/325MG TAB PO PRN ×2 (09:18→21:41)
[2023-02-18] MEDS: MORPHINE SULFATE INJ 2 MG/ml SYRG IV PRN ×2 (11:30→17:02)
[2023-02-18] MEDS: ENOXAPARIN SOD 100 MG/1 ML SYRINGE SC SCH ×2 (11:31→21:41)
[2023-02-18] MEDS: PIPERACILLIN-TAZOB 3.375GM 100 ML IV SCH ×2 (11:48→21:41)
[2023-02-18] MEDS: ONDANSETRON HCL 4 MG/2 ML VIAL IV PRN ×2 (12:20→17:32)
[2023-02-18 20:10] VITALS: PULSE 66; RESP 12; O2SAT 98
[2023-02-19] MEDS: SODIUM CHLORIDE 0.9% 1,000 ML IV SCH ×2 (00:33→00:45)
[2023-02-19 01:11] VITALS: BP 118/60; PULSE 68; RESP 20; TEMP 98.5; O2SAT 94
[2023-02-19] MEDS: ONDANSETRON HCL 4 MG/2 ML VIAL IV PRN (02:06)
[2023-02-19] MEDS: MORPHINE SULFATE INJ 2 MG/ml SYRG IV PRN (02:08)
[2023-02-19] MEDS: PIPERACILLIN-TAZOB 3.375GM 100 ML IV SCH ×3 (04:41→21:15)
[2023-02-19 05:34] LABS: Alanine Aminotransferase 26 U/L (7-40); Albumin 3.3 g/dL (3.2-4.8); Alkaline Phosphatase 64 U/L (46-116); Anion Gap 5.7 (5-15); Aspartate Aminotransferase 34 U/L (13-40); BUN/Creatinine Ratio 12.4 (10.0-20.0); Blood Urea Nitrogen 13 mg/dL (9-23); Calcium 8.2 mg/dL (8.5-10.1); Carbon Dioxide 25.3 mmol/L (20-30); Chloride 109 mmol/L (98-107); Glucose 126 mg/dL (74-106); LDL Cholesterol 49 mg/dL (< 100); Potassium 3.8 mmol/L (3.5-5.1); Sodium 140 mmol/L (136-145); Triglycerides 86 mg/dL (< 150)
[2023-02-19 05:35] LABS: Cholesterol 111 mg/dL (< 200); HDL Cholesterol 43 mg/dL (40-59); Total Protein 5.1 g/dL (5.7-8.2)
[2023-02-19 06:14] LABS: Basophils # (auto) 0 10 ^3/uL (0-0.2); Basophils % (auto) 0.4 % (0.0-2.0); Eosinophils # (auto) 0.2 10 ^3/uL (0-0.8); Eosinophils % (auto) 3.1 % (0.0-7.0); Hematocrit 31.2 % (36.0-46.0); Hemoglobin 10.2 g/dL (12.2-16.2); Lymphocytes # (auto) 0.9 10 ^3/uL (0.4-5.4); Lymphocytes % (auto) 14.3 % (10.0-50.0); Mean Corpuscular Hemoglobin 32.1 pg (28.0-32.0); Mean Corpuscular Hgb Conc. 32.7 g/dL (32.0-36.0); Monocytes # (auto) 0.6 10 ^3/uL (0-1.3); Monocytes % (auto) 10.3 % (0.0-12.0); Neutrophils # (auto) 4.3 10 ^3/uL (1.6-8.6); Neutrophils % (auto) 71.9 % (37.0-80.0); Nucleated Red Blood Cells % 0.1 %; Red Blood Cells 3.18 10^6/uL (4.0-5.20); Red Cell Distribution Width 14.3 % (11.8-14.3)
[2023-02-19 06:21] LABS: INR 1.04 (0.9-1.15); Prothrombin Time 10.9 sec (9.3-11.8)
[2023-02-19 08:00] VITALS: BP 101/46; PULSE 68; PULSE 69; RESP 17; TEMP 98.1; O2SAT 92
[2023-02-19 09:00] VITALS: BP 101/46; PULSE 68; RESP 17; TEMP 98.1; O2SAT 92
[2023-02-19] MEDS: ENOXAPARIN SOD 100 MG/1 ML SYRINGE SC SCH ×2 (10:00→21:31)
[2023-02-19] MEDS: PANTOPRAZOLE 40 MG TAB PO SCH (10:16)
[2023-02-19] MEDS: HYDROcodone-ACET 5/325MG TAB PO PRN (10:17)
[2023-02-19] MEDS ORDERED: GABAPENTIN 100 MG CAP PO ONE (12:00)
[2023-02-19] MEDS ORDERED: CELECOXIB 100 MG CAP PO ONE (12:00)
[2023-02-19] MEDS ORDERED: ACETAMINOPHEN IV 1000 MG/100ML (10MG/ML) IV ONE (12:00)
[2023-02-19] MEDS ORDERED: ceFAZolin 1GM/50ML 100 ML IV ONE (12:33)
[2023-02-19] MEDS ORDERED: TRANEXAMIC ACID 20 ML ONE (12:46)
[2023-02-19] MEDS ORDERED: VANCOMYCIN HCL 1000 MG VL ONE (12:47)
[2023-02-19] MEDS ORDERED: BUPIVACAINE 0.25% INJ 50ML VIAL ONE (12:51)
[2023-02-19] MEDS ORDERED: KETOROLAC TROMETH 30 MG/ML 1ML VIAL ONE ×2 (12:53→13:02)
[2023-02-19] MEDS ORDERED: MORPHINE SULF PF 5 MG/10 ML VIAL ONE (12:55)
[2023-02-19] MEDS ORDERED: CELECOXIB 100 MG CAP ONE (12:56)
[2023-02-19] MEDS ORDERED: fentaNYL CITRATE 100 MCG/2 ML VL ONE (13:01)
[2023-02-19] MEDS ORDERED: ROCURONIUM 10MG/ML 10ML VIAL IV ONE (13:02)
[2023-02-19] MEDS ORDERED: GLYCOPYRROLATE 0.2 MG/ML 1ML VIAL ONE (13:02)
[2023-02-19] MEDS ORDERED: DexAMETHasone SOD PHOS 10MG/1ML VIAL INJ ONE (13:02)
[2023-02-19] MEDS ORDERED: LIDOCAINE 2% (LOCAL ANESTH.) PF 5ml SDV ONE ×2 (13:02→13:59)
[2023-02-19] MEDS ORDERED: ONDANSETRON HCL 4 MG/2 ML VIAL ONE (13:02)
[2023-02-19] MEDS ORDERED: DexAMETHasone SOD PHOS 4 MG/1ML SDV INJ ONE (13:03)
[2023-02-19] MEDS ORDERED: SUGAMMADEX 200mg/2ml Vial (100MG/ML) IV ONE (13:06)
[2023-02-19] MEDS ORDERED: PHENYLEPHRINE HCL 10 MG/ML VL ONE (13:39)
[2023-02-19] MEDS ORDERED: SODIUM CHLORIDE LOCK 10 ML ONE (13:39)
[2023-02-19] MEDS: GABAPENTIN 300 MG CAP PO SCH ×2 (14:00→21:29)
[2023-02-19] MEDS ORDERED: BISACODYL 5 MG EC TAB PO PRN (14:45)
[2023-02-19] MEDS ORDERED: fentaNYL CITRATE 100 MCG/2 ML VL IV PRN (15:00)
[2023-02-19] MEDS ORDERED: HYDROmorphone HCL 2 MG/ML VL/or syr IV PRN (15:00)
[2023-02-19] MEDS ORDERED: NALOXONE HCL 0.4 MG/ML VIAL IV PRN (15:00)
[2023-02-19] MEDS ORDERED: ONDANSETRON HCL 4 MG/2 ML VIAL IV PRN (15:00)
[2023-02-19] MEDS ORDERED: hydrALAZINE HCL 20 MG/ML VL IV PRN (15:00)
[2023-02-19] MEDS ORDERED: ePHEDrine SULFATE 50 MG/ML AMP IV PRN (15:00)
[2023-02-19] MEDS ORDERED: FLUMAZENIL 0.1 MG/ML INJ 10ML MDV IV PRN (15:00)
[2023-02-19] MEDS ORDERED: LABETALOL HCL 5 MG/ML 4ML SYRINGE IV PRN (15:00)
[2023-02-19] MEDS ORDERED: oxyCODONE ER 10 MG TAB PO ONE (15:00)
[2023-02-19 17:00] VITALS: BP 101/47; PULSE 67; RESP 15; TEMP 97.7; O2SAT 98
[2023-02-19] MEDS: LACTATED RINGER'S 1,000 ML IV SCH (18:24)
[2023-02-19 20:00] VITALS: BP 158/59; PULSE 65; PULSE 82; RESP 19; TEMP 97.6; O2SAT 94
[2023-02-19] MEDS: DOCUSATE SOD 100 MG CAP PO SCH (21:28)
[2023-02-19] MEDS: METOPROLOL TARTRATE 25 MG TAB PO SCH (21:29)
[2023-02-19] MEDS: AMIODARONE HCL 200 MG TAB PO SCH (21:30)
[2023-02-19 22:00] VITALS: BP 158/59; PULSE 65; RESP 18; TEMP 97.6; O2SAT 94
[2023-02-20] VITALS (8 sets, daily range): BP systolic 100–118; BP diastolic 49–57; PULSE 58–74; RESP 17–19; TEMP 97.6–98.8; O2SAT 95–97
[2023-02-20] MEDS: LACTATED RINGER'S 1,000 ML IV SCH ×3 (00:45→20:45)
[2023-02-20] MEDS: PIPERACILLIN-TAZOB 3.375GM 100 ML IV SCH ×3 (04:36→21:19)
[2023-02-20] MEDS: GABAPENTIN 300 MG CAP PO SCH ×3 (05:39→21:20)
[2023-02-20] MEDS: LEVOTHYROXINE SODIUM 50 MCG TAB PO SCH (06:39)
[2023-02-20 07:39] LABS: Basophils # (auto) 0 10 ^3/uL (0-0.2); Eosinophils # (auto) 0 10 ^3/uL (0-0.8); Hematocrit 31.4 % (36.0-46.0); Hemoglobin 10.1 g/dL (12.2-16.2); Lymphocytes # (auto) 0.4 10 ^3/uL (0.4-5.4); Lymphocytes % (auto) 3.7 % (10.0-50.0); Mean Corpuscular Hemoglobin 31.5 pg (28.0-32.0); Mean Corpuscular Hgb Conc. 32.2 g/dL (32.0-36.0); Mean Corpuscular Volume 97.6 fL (80.0-100.0); Monocytes # (auto) 0.3 10 ^3/uL (0-1.3); Monocytes % (auto) 2.8 % (0.0-12.0); Neutrophils # (auto) 10.3 10 ^3/uL (1.6-8.6); Neutrophils % (auto) 93.5 % (37.0-80.0); Red Blood Cells 3.22 10^6/uL (4.0-5.20)
[2023-02-20 08:32] LABS: Anion Gap 7.9 (5-15); Carbon Dioxide 24.1 mmol/L (20-30); Chloride 104 mmol/L (98-107); Potassium 4.6 mmol/L (3.5-5.1); Sodium 136 mmol/L (136-145)
[2023-02-20 08:34] LABS: Calcium 8.5 mg/dL (8.5-10.1)
[2023-02-20 08:38] LABS: BUN/Creatinine Ratio 16.9 (10.0-20.0); Blood Urea Nitrogen 20 mg/dL (9-23); Glucose 210 mg/dL (74-106)
[2023-02-20] MEDS: ENOXAPARIN SOD 100 MG/1 ML SYRINGE SC SCH ×2 (09:58→21:20)
[2023-02-20] MEDS: PRAVASTATIN SODIUM 20 MG TAB PO SCH (09:59)
[2023-02-20] MEDS: ALLOPURINOL 100 MG TAB PO SCH (09:59)
[2023-02-20] MEDS: AMIODARONE HCL 200 MG TAB PO SCH ×2 (09:59→21:20)
[2023-02-20] MEDS: FUROSEMIDE 40 MG TAB PO SCH (10:00)
[2023-02-20] MEDS: PANTOPRAZOLE 40 MG TAB PO SCH (10:00)
[2023-02-20] MEDS: METOPROLOL TARTRATE 25 MG TAB PO SCH ×2 (10:00→21:21)
[2023-02-20] MEDS: LISINOPRIL 5 MG TAB PO SCH (10:01)
[2023-02-20] MEDS: DOCUSATE SOD 100 MG CAP PO SCH ×2 (10:01→21:20)
[2023-02-21] VITALS (7 sets, daily range): BP systolic 92–119; BP diastolic 44–60; PULSE 54–74; RESP 16–18; TEMP 97.5–98.6; O2SAT 91–99
[2023-02-21] MEDS: HYDROcodone-ACET 5/325MG TAB PO PRN ×3 (02:03→15:26)
[2023-02-21 06:02] LABS: Hemoglobin 8.9 g/dL (12.2-16.2)
[2023-02-21] MEDS: GABAPENTIN 300 MG CAP PO SCH ×3 (06:17→21:28)
[2023-02-21] MEDS: PIPERACILLIN-TAZOB 3.375GM 100 ML IV SCH ×3 (06:17→19:59)
[2023-02-21] MEDS: LEVOTHYROXINE SODIUM 50 MCG TAB PO SCH (06:18)
[2023-02-21] MEDS: LACTATED RINGER'S 1,000 ML IV SCH (06:21)
[2023-02-21] MEDS: PANTOPRAZOLE 40 MG TAB PO SCH (08:55)
[2023-02-21] MEDS: AMIODARONE HCL 200 MG TAB PO SCH (08:55)
[2023-02-21] MEDS: PRAVASTATIN SODIUM 20 MG TAB PO SCH (08:55)
[2023-02-21] MEDS: DOCUSATE SOD 100 MG CAP PO SCH ×2 (08:55→21:28)
[2023-02-21] MEDS: LISINOPRIL 5 MG TAB PO SCH (08:55)
[2023-02-21] MEDS: ALLOPURINOL 100 MG TAB PO SCH (08:55)
[2023-02-21] MEDS: ENOXAPARIN SOD 100 MG/1 ML SYRINGE SC SCH (08:56)
[2023-02-21] MEDS: FUROSEMIDE 40 MG TAB PO SCH (08:56)
[2023-02-21] MEDS: METOPROLOL TARTRATE 25 MG TAB PO SCH ×2 (08:56→21:28)
[2023-02-21] MEDS: FERROUS SULFATE 325mg EC TAB PO SCH ×2 (13:10→17:40)
[2023-02-21] MEDS: ASCORBIC ACID 500 MG TAB PO SCH (13:11)
[2023-02-21] MEDS: POLYETHYLENE GLYCOL 17 GM PWDR PO SCH (13:11)
[2023-02-21] MEDS: ENOXAPARIN SOD 80 MG/0.8ML SYRINGE SC SCH (21:29)
[2023-02-22] VITALS (11 sets, daily range): BP systolic 85–137; BP diastolic 37–75; PULSE 56–75; RESP 14–20; TEMP 97.7–98.6; O2SAT 93–100
[2023-02-22] MEDS: PIPERACILLIN-TAZOB 3.375GM 100 ML IV SCH ×3 (04:33→20:10)
[2023-02-22] MEDS: GABAPENTIN 300 MG CAP PO SCH ×4 (06:00→22:01)
[2023-02-22] MEDS: LEVOTHYROXINE SODIUM 50 MCG TAB PO SCH ×2 (06:02→06:20)
[2023-02-22 06:03] LABS: Basophils # (auto) 0 10 ^3/uL (0-0.2); Eosinophils # (auto) 0.2 10 ^3/uL (0-0.8); Hemoglobin 7.4 g/dL (12.2-16.2); Lymphocytes # (auto) 1.3 10 ^3/uL (0.4-5.4); Lymphocytes % (auto) 16.9 % (10.0-50.0); Monocytes # (auto) 0.6 10 ^3/uL (0-1.3); Red Cell Distribution Width 14.2 % (11.8-14.3)
[2023-02-22 06:10] LABS: Basophils % (auto) 0.3 % (0.0-2.0); Hematocrit 22.9 % (36.0-46.0); Mean Corpuscular Hemoglobin 31.8 pg (28.0-32.0); Mean Corpuscular Hgb Conc. 32.5 g/dL (32.0-36.0); Mean Corpuscular Volume 97.7 fL (80.0-100.0); Monocytes % (auto) 7.6 % (0.0-12.0); Neutrophils # (auto) 5.7 10 ^3/uL (1.6-8.6); Neutrophils % (auto) 72.2 % (37.0-80.0); Red Blood Cells 2.34 10^6/uL (4.0-5.20); White Blood Cell 7.8 10^3/uL (4.4-10.8)
[2023-02-22 06:12] LABS: Anion Gap 4.7 (5-15); Carbon Dioxide 29.3 mmol/L (20-30); Chloride 106 mmol/L (98-107); Sodium 140 mmol/L (136-145)
[2023-02-22 06:13] LABS: Calcium 8.1 mg/dL (8.7-10.4)
[2023-02-22 06:18] LABS: Blood Urea Nitrogen 24 mg/dL (9-23); Glucose 110 mg/dL (74-106); Magnesium 1.7 mg/dL (1.6-2.6)
[2023-02-22] MEDS: AMIODARONE HCL 200 MG TAB PO SCH (08:43)
[2023-02-22] MEDS: HYDROcodone-ACET 5/325MG TAB PO PRN (08:43)
[2023-02-22] MEDS: POLYETHYLENE GLYCOL 17 GM PWDR PO SCH (08:43)
[2023-02-22] MEDS: PRAVASTATIN SODIUM 20 MG TAB PO SCH (08:43)
[2023-02-22] MEDS: ASCORBIC ACID 500 MG TAB PO SCH (08:43)
[2023-02-22] MEDS: ALLOPURINOL 100 MG TAB PO SCH (08:44)
[2023-02-22] MEDS: FUROSEMIDE 40 MG TAB PO SCH (08:44)
[2023-02-22] MEDS: LISINOPRIL 5 MG TAB PO SCH (08:44)
[2023-02-22] MEDS: DOCUSATE SOD 100 MG CAP PO SCH ×2 (08:44→22:01)
[2023-02-22] MEDS: PANTOPRAZOLE 40 MG TAB PO SCH (08:44)
[2023-02-22] MEDS: FERROUS SULFATE 325mg EC TAB PO SCH ×2 (08:44→17:42)
[2023-02-22] MEDS: METOPROLOL TARTRATE 25 MG TAB PO SCH ×2 (08:45→22:00)
[2023-02-22] MEDS: ENOXAPARIN SOD 80 MG/0.8ML SYRINGE SC SCH ×2 (08:47→22:00)
[2023-02-23] VITALS (7 sets, daily range): BP systolic 92–113; BP diastolic 35–66; PULSE 59–77; RESP 14–18; TEMP 98.1–99; O2SAT 95–100
[2023-02-23 00:08] LABS: Hematocrit 23.6 % (36.0-46.0); Hemoglobin 8.2 g/dL (12.2-16.2)
[2023-02-23] MEDS: PIPERACILLIN-TAZOB 3.375GM 100 ML IV SCH ×2 (03:34→12:20)
[2023-02-23] MEDS: GABAPENTIN 300 MG CAP PO SCH ×3 (06:24→21:16)
[2023-02-23] MEDS: LEVOTHYROXINE SODIUM 50 MCG TAB PO SCH (06:24)
[2023-02-23] MEDS: ENOXAPARIN SOD 80 MG/0.8ML SYRINGE SC SCH ×2 (07:13→21:12)
[2023-02-23] MEDS: PRAVASTATIN SODIUM 20 MG TAB PO SCH (09:43)
[2023-02-23] MEDS: PANTOPRAZOLE 40 MG TAB PO SCH (09:43)
[2023-02-23] MEDS: ALLOPURINOL 100 MG TAB PO SCH (09:43)
[2023-02-23] MEDS: POLYETHYLENE GLYCOL 17 GM PWDR PO SCH (09:43)
[2023-02-23] MEDS: HYDROcodone-ACET 5/325MG TAB PO PRN (09:44)
[2023-02-23] MEDS: ASCORBIC ACID 500 MG TAB PO SCH (09:44)
[2023-02-23] MEDS: FERROUS SULFATE 325mg EC TAB PO SCH ×2 (09:44→18:47)
[2023-02-23] MEDS: DOCUSATE SOD 100 MG CAP PO SCH ×2 (09:44→21:16)
[2023-02-23] MEDS: AMIODARONE HCL 200 MG TAB PO SCH (09:44)
[2023-02-23] MEDS: FUROSEMIDE 40 MG TAB PO SCH (09:57)
[2023-02-23] MEDS: METOPROLOL TARTRATE 25 MG TAB PO SCH (09:57)
[2023-02-23] MEDS: LISINOPRIL 5 MG TAB PO SCH (09:58)
[2023-02-23 13:14] LABS: Basophils # (auto) 0 10 ^3/uL (0-0.2); Eosinophils # (auto) 0.4 10 ^3/uL (0-0.8); Hemoglobin 8.4 g/dL (12.2-16.2); Monocytes # (auto) 0.5 10 ^3/uL (0-1.3); Red Cell Distribution Width 14.8 % (11.8-14.3)
[2023-02-23 13:16] LABS: Basophils % (auto) 0.3 % (0.0-2.0); Eosinophils % (auto) 4.5 % (0.0-7.0); Hematocrit 24.6 % (36.0-46.0); Lymphocytes % (auto) 12.2 % (10.0-50.0); Mean Corpuscular Hemoglobin 32.7 pg (28.0-32.0); Mean Corpuscular Hgb Conc. 34.2 g/dL (32.0-36.0); Mean Corpuscular Volume 95.6 fL (80.0-100.0); Monocytes % (auto) 5.5 % (0.0-12.0); Neutrophils # (auto) 6.4 10 ^3/uL (1.6-8.6); Neutrophils % (auto) 77.5 % (37.0-80.0); Red Blood Cells 2.58 10^6/uL (4.0-5.20); White Blood Cell 8.3 10^3/uL (4.4-10.8)
[2023-02-23 13:56] LABS: Alanine Aminotransferase 19 U/L (7-40); Alkaline Phosphatase 47 U/L (46-116); Aspartate Aminotransferase 17 U/L (13-40); BUN/Creatinine Ratio 16.7 (10.0-20.0); Bilirubin, Total 0.9 mg/dL (0.2-1.0); Blood Urea Nitrogen 20 mg/dL (9-23); Calcium 8.4 mg/dL (8.5-10.1); Chloride 105 mmol/L (98-107); Glucose 163 mg/dL (74-106); Magnesium 1.6 mg/dL (1.6-2.6); Potassium 3.5 mmol/L (3.5-5.1); Sodium 140 mmol/L (136-145); Total Protein 4.8 g/dL (5.7-8.2)
[2023-02-23] MEDS ORDERED: CIPROFLOXACIN HCL 500 MG TAB PO ONE (14:15)
[2023-02-23] MEDS ORDERED: SODIUM CHLORIDE 0.9% 500 ML IV ONE (15:15)
[2023-02-24] VITALS (7 sets, daily range): BP systolic 101–119; BP diastolic 45–66; PULSE 64–84; RESP 16–18; TEMP 97.7–98.4; O2SAT 97–98
[2023-02-24] MEDS: LEVOTHYROXINE SODIUM 50 MCG TAB PO SCH (05:36)
[2023-02-24] MEDS: GABAPENTIN 300 MG CAP PO SCH ×3 (05:36→20:58)
[2023-02-24] MEDS: FERROUS SULFATE 325mg EC TAB PO SCH ×2 (08:49→17:22)
[2023-02-24] MEDS: CIPROFLOXACIN HCL 500 MG TAB PO SCH (09:13)
[2023-02-24] MEDS: DOCUSATE SOD 100 MG CAP PO SCH ×2 (09:13→20:59)
[2023-02-24] MEDS: PRAVASTATIN SODIUM 20 MG TAB PO SCH (09:13)
[2023-02-24] MEDS: PANTOPRAZOLE 40 MG TAB PO SCH (09:14)
[2023-02-24] MEDS: AMIODARONE HCL 200 MG TAB PO SCH (09:14)
[2023-02-24] MEDS: ENOXAPARIN SOD 80 MG/0.8ML SYRINGE SC SCH ×2 (09:14→20:59)
[2023-02-24] MEDS: ALLOPURINOL 100 MG TAB PO SCH (09:14)
[2023-02-24] MEDS: ASCORBIC ACID 500 MG TAB PO SCH (09:14)
[2023-02-24] MEDS: POLYETHYLENE GLYCOL 17 GM PWDR PO SCH (09:14)
[2023-02-24] MEDS: HYDROcodone-ACET 5/325MG TAB PO PRN (20:58)
[2023-02-25] VITALS (7 sets, daily range): BP systolic 105–129; BP diastolic 46–64; PULSE 61–79; RESP 18–20; TEMP 97.5–98.4; O2SAT 92–99
[2023-02-25 06:17] LABS: Basophils # (auto) 0 10 ^3/uL (0-0.2); Basophils % (auto) 0.6 % (0.0-2.0); Eosinophils # (auto) 0.3 10 ^3/uL (0-0.8); Eosinophils % (auto) 4.2 % (0.0-7.0); Hematocrit 22.3 % (36.0-46.0); Hemoglobin 7.9 g/dL (12.2-16.2); Lymphocytes # (auto) 1.3 10 ^3/uL (0.4-5.4); Lymphocytes % (auto) 21.2 % (10.0-50.0); Mean Corpuscular Hemoglobin 33.5 pg (28.0-32.0); Mean Corpuscular Hgb Conc. 35.3 g/dL (32.0-36.0); Mean Corpuscular Volume 94.9 fL (80.0-100.0); Monocytes # (auto) 0.5 10 ^3/uL (0-1.3); Monocytes % (auto) 7.8 % (0.0-12.0); Neutrophils # (auto) 4.2 10 ^3/uL (1.6-8.6); Neutrophils % (auto) 66.2 % (37.0-80.0); Nucleated Red Blood Cells % 0.1 %; Red Blood Cells 2.35 10^6/uL (4.0-5.20); Red Cell Distribution Width 14.2 % (11.8-14.3); White Blood Cell 6.4 10^3/uL (4.4-10.8)
[2023-02-25] MEDS: GABAPENTIN 300 MG CAP PO SCH ×3 (06:20→22:04)
[2023-02-25] MEDS: HYDROcodone-ACET 5/325MG TAB PO PRN ×2 (06:20→22:04)
[2023-02-25] MEDS: LEVOTHYROXINE SODIUM 50 MCG TAB PO SCH (06:21)
[2023-02-25 06:33] LABS: Alanine Aminotransferase 20 U/L (7-40); Alkaline Phosphatase 47 U/L (46-116); Anion Gap 3 (5-15); Aspartate Aminotransferase 18 U/L (13-40); BUN/Creatinine Ratio 13.3 (10.0-20.0); Bilirubin, Total 1.1 mg/dL (0.2-1.0); Blood Urea Nitrogen 12 mg/dL (9-23); Calcium 8.6 mg/dL (8.5-10.1); Carbon Dioxide 32 mmol/L (20-30); Chloride 106 mmol/L (98-107); Glucose 110 mg/dL (74-106); Magnesium 1.8 mg/dL (1.6-2.6); Potassium 3.7 mmol/L (3.5-5.1); Sodium 141 mmol/L (136-145); Total Protein 4.7 g/dL (5.7-8.2)
[2023-02-25] MEDS: FERROUS SULFATE 325mg EC TAB PO SCH ×2 (08:14→17:57)
[2023-02-25] MEDS: PANTOPRAZOLE 40 MG TAB PO SCH (08:14)
[2023-02-25] MEDS: PRAVASTATIN SODIUM 20 MG TAB PO SCH (08:46)
[2023-02-25] MEDS: ASCORBIC ACID 500 MG TAB PO SCH (08:46)
[2023-02-25] MEDS: CIPROFLOXACIN HCL 500 MG TAB PO SCH ×2 (08:46→22:04)
[2023-02-25] MEDS: ALLOPURINOL 100 MG TAB PO SCH (08:46)
[2023-02-25] MEDS: AMIODARONE HCL 200 MG TAB PO SCH (08:47)
[2023-02-25] MEDS: DOCUSATE SOD 100 MG CAP PO SCH ×2 (10:00→22:00)
[2023-02-25] MEDS: ENOXAPARIN SOD 80 MG/0.8ML SYRINGE SC SCH ×2 (10:00→22:03)
[2023-02-25] MEDS: POLYETHYLENE GLYCOL 17 GM PWDR PO SCH (10:00)
[2023-02-26 05:00] VITALS: BP 117/61; PULSE 84; RESP 18; TEMP 97.7; O2SAT 94
[2023-02-26] MEDS: GABAPENTIN 300 MG CAP PO SCH ×2 (07:46→10:08)
[2023-02-26] MEDS: LEVOTHYROXINE SODIUM 50 MCG TAB PO SCH (07:46)
[2023-02-26 08:00] VITALS: BP 127/72; PULSE 18; PULSE 88; PULSE 89; RESP 18; TEMP 98.3; O2SAT 96
[2023-02-26 09:00] VITALS: BP 127/72; PULSE 89; RESP 18; TEMP 98.3; O2SAT 96
[2023-02-26] MEDS: DOCUSATE SOD 100 MG CAP PO SCH (10:00)
[2023-02-26] MEDS: POLYETHYLENE GLYCOL 17 GM PWDR PO SCH (10:00)
[2023-02-26] MEDS: FERROUS SULFATE 325mg EC TAB PO SCH (10:08)
[2023-02-26] MEDS: CIPROFLOXACIN HCL 500 MG TAB PO SCH (10:08)
[2023-02-26] MEDS: PANTOPRAZOLE 40 MG TAB PO SCH (10:09)
[2023-02-26] MEDS: ENOXAPARIN SOD 80 MG/0.8ML SYRINGE SC SCH (10:09)
[2023-02-26] MEDS: ASCORBIC ACID 500 MG TAB PO SCH (10:09)
[2023-02-26] MEDS: ALLOPURINOL 100 MG TAB PO SCH (10:09)
[2023-02-26] MEDS: AMIODARONE HCL 200 MG TAB PO SCH (10:09)
[2023-02-26] MEDS: PRAVASTATIN SODIUM 20 MG TAB PO SCH (10:18)
[2023-02-26] MEDS: HYDROcodone-ACET 5/325MG TAB PO PRN ×2 (10:30→17:11)
[2023-02-26 12:49] VITALS: BP 124/52; PULSE 82; RESP 21; TEMP 97.9; O2SAT 97
[2023-02-26 16:39] VITALS: BP 123/67; PULSE 82; RESP 19; TEMP 97.9; O2SAT 97
== END 2023-02-26 16:30 | DRG 521 ==
LOC: EDBD 00:45 → ER 00:45 → TELE 08:16 → TELE-CENTR 23:36
PROVIDERS: ADMIT Nurse Practitioner; ATTEND Orthopaedic Surgery
PROC: 0SRR0J9 Replacement of Right Hip Joint, Femoral Surface with Synthetic Substitute, Cemented, Open Approach (ICD-10-PCS; principal; 2023-02-19 13:15)
PROC: 30233N1 Transfusion of Nonautologous Red Blood Cells into Peripheral Vein, Percutaneous Approach (ICD-10-PCS; 2023-02-22)
DX: S72.001A Fracture of unspecified part of neck of right femur, initial encounter for closed fracture (principal); N17.0 Acute kidney failure with tubular necrosis; N30.00 Acute cystitis without hematuria; E87.1 Hypo-osmolality and hyponatremia; I50.32 Chronic diastolic (congestive) heart failure; M10.9 Gout, unspecified; E03.9 Hypothyroidism, unspecified; E11.9 Type 2 diabetes mellitus without complications; E78.00 Pure hypercholesterolemia, unspecified; I11.0 Hypertensive heart disease with heart failure; I25.10 Atherosclerotic heart disease of native coronary artery without angina pectoris; I48.0 Paroxysmal atrial fibrillation; J44.9 Chronic obstructive pulmonary disease, unspecified; Z96.649 Presence of unspecified artificial hip joint; W18.39XA Other fall on same level, initial encounter; K21.9 Gastro-esophageal reflux disease without esophagitis; Z90.49 Acquired absence of other specified parts of digestive tract; Z79.01 Long term (current) use of anticoagulants; Z79.899 Other long term (current) drug therapy; Z82.3 Family history of stroke; Z82.49 Family history of ischemic heart disease and other diseases of the circulatory system; Z83.3 Family history of diabetes mellitus; Z86.711 Personal history of pulmonary embolism; Z90.710 Acquired absence of both cervix and uterus; Z98.61 Coronary angioplasty status; Y93.89 Activity, other specified; Y92.89 Other specified places as the place of occurrence of the external cause; Y99.8 Other external cause status; Z88.2 Allergy status to sulfonamides
CPT/HCPCS: 36415; 70450; 71045; 71250; 72125; 72170; 73080; 73090; 74176; 80048; 80053; 80061; 81001; 82962; 83735; 83880; 84443; 84484; 85014; 85018; 85025; 85610; 86850; 86900; 86901; 86920; 87086; 97110; 97116; 97163; 97530; A4565; G0378; J0131; J0690; J1100; J1885; J2001; J2405; J2543; J3490

== ENCOUNTER 2023-03-31 11:46 | Inpatient (IN) | payer MEDICARE, MEDICAID ==
[~2023-03-31] VITALS: Ht 160 cm; Wt 73.8 kg
[2023-03-31 12:35] VITALS: PULSE 65; RESP 18; O2SAT 94
[2023-03-31 13:43] LABS: Basophils # (auto) 0 10 ^3/uL (0-0.2); Basophils % (auto) 0.7 % (0.0-2.0); Eosinophils # (auto) 0.2 10 ^3/uL (0-0.8); Eosinophils % (auto) 2.8 % (0.0-7.0); Hematocrit 30.9 % (36.0-46.0); Hemoglobin 10.4 g/dL (12.2-16.2); Lymphocytes # (auto) 0.6 10 ^3/uL (0.4-5.4); Lymphocytes % (auto) 9.9 % (10.0-50.0); Mean Corpuscular Hemoglobin 32.1 pg (28.0-32.0); Mean Corpuscular Hgb Conc. 33.6 g/dL (32.0-36.0); Mean Corpuscular Volume 95.6 fL (80.0-100.0); Monocytes # (auto) 0.4 10 ^3/uL (0-1.3); Monocytes % (auto) 6.1 % (0.0-12.0); Neutrophils # (auto) 4.8 10 ^3/uL (1.6-8.6); Neutrophils % (auto) 80.5 % (37.0-80.0); Red Blood Cells 3.23 10^6/uL (4.0-5.20); Red Cell Distribution Width 15.7 % (11.8-14.3); White Blood Cell 5.9 10^3/uL (4.4-10.8)
[2023-03-31 13:59] LABS: Alanine Aminotransferase 14 U/L (7-40); Alkaline Phosphatase 67 U/L (46-116); Anion Gap 4 (5-15); Aspartate Aminotransferase 14 U/L (13-40); BUN/Creatinine Ratio 7.7 (10.0-20.0); Blood Urea Nitrogen 9 mg/dL (9-23); Calcium 8.8 mg/dL (8.5-10.1); Carbon Dioxide 32 mmol/L (20-30); Chloride 107 mmol/L (98-107); Glucose 138 mg/dL (74-106); Potassium 4.4 mmol/L (3.5-5.1); Sodium 143 mmol/L (136-145)
[2023-03-31 14:00] LABS: Albumin 3.5 g/dL (3.2-4.8); Bilirubin, Total 0.9 mg/dL (0.2-1.0); Total Protein 5.5 g/dL (5.7-8.2)
[2023-03-31 14:44] LABS: Uric Acid 3.6 mg/dL (3.1-7.8)
[2023-03-31 14:50] LABS: INR 1.15 (0.9-1.15)
[2023-03-31] MEDS ORDERED: ONDANSETRON HCL 4 MG/2 ML VIAL IV PRN ×2 (18:15)
[2023-03-31] MEDS ORDERED: DOCUSATE SOD 100 MG CAP PO PRN (18:15)
[2023-03-31] MEDS ORDERED: MORPHINE SULFATE INJ 2 MG/ml SYRG IV PRN ×2 (18:15)
[2023-03-31] MEDS ORDERED: ACETAMINOPHEN 325 MG TAB PO PRN (18:15)
[2023-03-31] MEDS ORDERED: NITROGLYCERIN 0.4 MG SL TAB SL PRN (18:15)
[2023-03-31] MEDS ORDERED: hydrALAZINE HCL 20 MG/ML VL IV PRN (18:15)
[2023-03-31] MEDS ORDERED: ALBUTEROL SULF 2.5 MG/0.5ML(0.5%) NEB SOLN NEB PRN (18:30)
[2023-03-31] MEDS ORDERED: HYDROmorphone HCL 2 MG/ML VL/or syr IV ONE (22:15)
[2023-03-31 23:11] VITALS: PULSE 57; RESP 18; O2SAT 96
[2023-03-31 23:21] VITALS: BP 135/56; PULSE 69; RESP 20; O2SAT 98
[2023-03-31] MEDS: traZODone HCL 50 MG TAB PO SCH (23:23)
[2023-03-31] MEDS: GABAPENTIN 300 MG CAP PO SCH (23:23)
[2023-03-31] MEDS: AMIODARONE HCL 200 MG TAB PO SCH (23:24)
[2023-03-31] MEDS: METOPROLOL TARTRATE 25 MG TAB PO SCH (23:25)
[2023-04-01] VITALS (11 sets, daily range): BP systolic 110–127; BP diastolic 45–70; PULSE 51–81; RESP 16–20; TEMP 97.5–99; O2SAT 93–100
[2023-04-01 00:28] LABS: Urine Bacteria NONE SEEN /hpf (None Seen); Urine Blood 1+ /uL (Negative); Urine Clarity Clear (Clear); Urine Color Yellow (Yellow); Urine Protein, UAD Negative (Negative); Urine Specific Gravity 1.011 (1.001-1.035); Urine WBC 2 /hpf (0 - 5); Urine pH 6.5 (5.0-8.0)
[2023-04-01] MEDS: HYDROcodone-ACET 5/325MG TAB PO PRN (03:25)
[2023-04-01 05:30] LABS: Basophils # (auto) 0 10 ^3/uL (0-0.2); Basophils % (auto) 0.7 % (0.0-2.0); Eosinophils # (auto) 0.2 10 ^3/uL (0-0.8); Eosinophils % (auto) 3.4 % (0.0-7.0); Hematocrit 30.1 % (36.0-46.0); Hemoglobin 10.1 g/dL (12.2-16.2); Lymphocytes # (auto) 1.1 10 ^3/uL (0.4-5.4); Lymphocytes % (auto) 19.8 % (10.0-50.0); Mean Corpuscular Hemoglobin 32.2 pg (28.0-32.0); Mean Corpuscular Hgb Conc. 33.6 g/dL (32.0-36.0); Mean Corpuscular Volume 95.6 fL (80.0-100.0); Monocytes # (auto) 0.6 10 ^3/uL (0-1.3); Monocytes % (auto) 10.8 % (0.0-12.0); Neutrophils # (auto) 3.5 10 ^3/uL (1.6-8.6); Neutrophils % (auto) 65.3 % (37.0-80.0); Red Blood Cells 3.15 10^6/uL (4.0-5.20); Red Cell Distribution Width 15.2 % (11.8-14.3); White Blood Cell 5.4 10^3/uL (4.4-10.8)
[2023-04-01 05:44] LABS: Albumin 3.3 g/dL (3.2-4.8); Alkaline Phosphatase 67 U/L (46-116); Anion Gap 5 (5-15); Aspartate Aminotransferase 11 U/L (13-40); BUN/Creatinine Ratio 9.2 (10.0-20.0); Blood Urea Nitrogen 11 mg/dL (9-23); Calcium 8.7 mg/dL (8.7-10.4); Carbon Dioxide 33 mmol/L (20-30); Chloride 103 mmol/L (98-107); Potassium 3.4 mmol/L (3.5-5.1); Sodium 141 mmol/L (136-145); Total Protein 5.2 g/dL (5.7-8.2)
[2023-04-01 05:48] LABS: Alanine Aminotransferase < 9 U/L (7-40)
[2023-04-01 07:33] LABS: Glucose 107 mg/dL (74-106)
[2023-04-01] MEDS: LEVOTHYROXINE SODIUM 50 MCG TAB PO SCH (08:31)
[2023-04-01] MEDS: GABAPENTIN 300 MG CAP PO SCH ×3 (08:31→22:20)
[2023-04-01] MEDS: METOPROLOL TARTRATE 25 MG TAB PO SCH (10:00)
[2023-04-01] MEDS: AMIODARONE HCL 200 MG TAB PO SCH (10:38)
[2023-04-01] MEDS: PANTOPRAZOLE 40 MG TAB PO SCH (10:39)
[2023-04-01] MEDS: LISINOPRIL 5 MG TAB PO SCH (10:39)
[2023-04-01] MEDS: MAGNESIUM OXIDE 400 MG TAB PO SCH (10:39)
[2023-04-01] MEDS: ENOXAPARIN SOD 40 MG/0.4 ML SYRINGE SC SCH (10:40)
[2023-04-01] MEDS: ALLOPURINOL 100 MG TAB PO SCH (10:40)
[2023-04-01] MEDS ORDERED: POTASSIUM CHL 20 Meq TABLET PO ONE (11:30)
[2023-04-01] MEDS ORDERED: POTASSIUM CHLORIDE 20 MEQ, LIDOCAINE 1% (LOCAL ANESTH.) 2 ML in SODIUM CHL 0.9% 100 ML IV ONE (13:45)
[2023-04-01] MEDS ORDERED: ceFAZolin 1GM/50ML 100 ML IV ONE (13:56)
[2023-04-01] MEDS ORDERED: PROPOFOL 10 MG/ML 20 ML IV ONE (14:37)
[2023-04-01] MEDS ORDERED: ePHEDrine SULFATE 50 MG/ML AMP ONE (15:02)
[2023-04-01] MEDS: PRAVASTATIN SODIUM 20 MG TAB PO SCH (22:20)
[2023-04-01] MEDS: traZODone HCL 50 MG TAB PO SCH (22:20)
[2023-04-01] MEDS: APIXABAN 2.5 MG TAB PO SCH (22:20)
[2023-04-01] MEDS: SOD CHL 0.45% 1,000 ML IV SCH (22:36)
[2023-04-02] VITALS (13 sets, daily range): BP systolic 81–131; BP diastolic 41–56; PULSE 0–84; RESP 15–20; TEMP 97.5–98; O2SAT 90–97
[2023-04-02] MEDS: HYDROcodone-ACET 5/325MG TAB PO PRN (05:00)
[2023-04-02] MEDS: GABAPENTIN 300 MG CAP PO SCH ×3 (06:33→21:18)
[2023-04-02] MEDS: LEVOTHYROXINE SODIUM 50 MCG TAB PO SCH (06:34)
[2023-04-02] MEDS: MAGNESIUM OXIDE 400 MG TAB PO SCH (09:42)
[2023-04-02] MEDS: PANTOPRAZOLE 40 MG TAB PO SCH (09:42)
[2023-04-02] MEDS: APIXABAN 2.5 MG TAB PO SCH ×2 (09:43→21:18)
[2023-04-02] MEDS: ALLOPURINOL 100 MG TAB PO SCH (09:43)
[2023-04-02] MEDS: ENOXAPARIN SOD 40 MG/0.4 ML SYRINGE SC SCH (09:43)
[2023-04-02] MEDS: LISINOPRIL 5 MG TAB PO SCH (09:48)
[2023-04-02 11:01] LABS: Basophils # (auto) 0.1 10 ^3/uL (0-0.2); Basophils % (auto) 1.1 % (0.0-2.0); Eosinophils # (auto) 0.2 10 ^3/uL (0-0.8); Eosinophils % (auto) 2.8 % (0.0-7.0); Hematocrit 31.7 % (36.0-46.0); Hemoglobin 10.4 g/dL (12.2-16.2); Lymphocytes # (auto) 0.9 10 ^3/uL (0.4-5.4); Lymphocytes % (auto) 14.6 % (10.0-50.0); Mean Corpuscular Hemoglobin 31.9 pg (28.0-32.0); Mean Corpuscular Hgb Conc. 32.7 g/dL (32.0-36.0); Mean Corpuscular Volume 97.4 fL (80.0-100.0); Monocytes # (auto) 0.6 10 ^3/uL (0-1.3); Monocytes % (auto) 9.1 % (0.0-12.0); Neutrophils # (auto) 4.6 10 ^3/uL (1.6-8.6); Neutrophils % (auto) 72.4 % (37.0-80.0); Red Blood Cells 3.26 10^6/uL (4.0-5.20); Red Cell Distribution Width 15.2 % (11.8-14.3); White Blood Cell 6.3 10^3/uL (4.4-10.8)
[2023-04-02 11:09] LABS: Alanine Aminotransferase 11 U/L (7-40); Alkaline Phosphatase 62 U/L (46-116); Anion Gap 8 (5-15); Aspartate Aminotransferase 14 U/L (13-40); Blood Urea Nitrogen 11 mg/dL (9-23); Calcium 8.6 mg/dL (8.5-10.1); Carbon Dioxide 29 mmol/L (20-30); Chloride 105 mmol/L (98-107); Glucose 94 mg/dL (74-106); Potassium 4.1 mmol/L (3.5-5.1); Sodium 142 mmol/L (136-145)
[2023-04-02 11:10] LABS: Albumin 3.2 g/dL (3.2-4.8); Bilirubin, Total 0.9 mg/dL (0.2-1.0); Total Protein 5.2 g/dL (5.7-8.2)
[2023-04-02 11:50] LABS: Magnesium 1.7 mg/dL (1.6-2.6)
[2023-04-02] MEDS: MAGNESIUM SULFATE 1GM/100ML 100 ML IV SCH ×2 (15:01→18:10)
[2023-04-02] MEDS: SOD CHL 0.45% 1,000 ML IV SCH (15:02)
[2023-04-02] MEDS ORDERED: ALBUTEROL MEDNEB 2.5 mg/3ml NEB ONE (20:19)
[2023-04-02] MEDS: AMIODARONE HCL 200 MG TAB PO SCH (21:21)
[2023-04-02] MEDS: traZODone HCL 50 MG TAB PO SCH (21:22)
[2023-04-02] MEDS: PRAVASTATIN SODIUM 20 MG TAB PO SCH (21:22)
[2023-04-03] VITALS (12 sets, daily range): BP systolic 97–126; BP diastolic 39–69; PULSE 67–79; RESP 15–22; TEMP 97.7–98.1; O2SAT 95–98
[2023-04-03] MEDS: HYDROcodone-ACET 5/325MG TAB PO PRN (02:31)
[2023-04-03] MEDS: SOD CHL 0.45% 1,000 ML IV SCH (04:35)
[2023-04-03] MEDS: LEVOTHYROXINE SODIUM 50 MCG TAB PO SCH (05:52)
[2023-04-03] MEDS: GABAPENTIN 300 MG CAP PO SCH (05:52)
[2023-04-03] MEDS: LISINOPRIL 5 MG TAB PO SCH (10:00)
[2023-04-03] MEDS: APIXABAN 2.5 MG TAB PO SCH ×2 (10:22→21:43)
[2023-04-03] MEDS: ALLOPURINOL 100 MG TAB PO SCH (10:22)
[2023-04-03] MEDS: ENOXAPARIN SOD 40 MG/0.4 ML SYRINGE SC SCH (10:22)
[2023-04-03] MEDS: MAGNESIUM OXIDE 400 MG TAB PO SCH (10:22)
[2023-04-03] MEDS: PANTOPRAZOLE 40 MG TAB PO SCH (10:23)
[2023-04-03] MEDS ORDERED: GABAPENTIN 300 MG CAP PO SCH (13:15)
[2023-04-03] MEDS: GABAPENTIN 100 MG CAP PO SCH ×2 (14:20→21:43)
[2023-04-03] MEDS: ALBUMIN 25% 100 ML IV SCH ×2 (14:22→21:38)
[2023-04-03] MEDS: traZODone HCL 50 MG TAB PO SCH (21:43)
[2023-04-03] MEDS: PRAVASTATIN SODIUM 20 MG TAB PO SCH (21:43)
[2023-04-03] MEDS: AMIODARONE HCL 200 MG TAB PO SCH (21:46)
[2023-04-04 05:00] VITALS: BP 121/51; PULSE 69; RESP 16; TEMP 97.7; O2SAT 96
[2023-04-04] MEDS: ALBUMIN 25% 100 ML IV SCH (06:03)
[2023-04-04] MEDS: LEVOTHYROXINE SODIUM 50 MCG TAB PO SCH (06:06)
[2023-04-04 08:00] VITALS: BP 164/59; PULSE 67; PULSE 70; RESP 17; RESP 23; TEMP 98; O2SAT 97
[2023-04-04] MEDS: PANTOPRAZOLE 40 MG TAB PO SCH (09:50)
[2023-04-04] MEDS: MAGNESIUM OXIDE 400 MG TAB PO SCH (09:50)
[2023-04-04] MEDS: ALLOPURINOL 100 MG TAB PO SCH (09:50)
[2023-04-04] MEDS: GABAPENTIN 100 MG CAP PO SCH (09:50)
[2023-04-04] MEDS: APIXABAN 2.5 MG TAB PO SCH (09:51)
[2023-04-04] MEDS: LISINOPRIL 5 MG TAB PO SCH (09:51)
[2023-04-04 10:00] VITALS: O2SAT 97
[2023-04-04 12:00] VITALS: BP 133/48; PULSE 80; RESP 18; TEMP 97.8; O2SAT 92
[2023-04-04 16:18] VITALS: O2SAT 92
== END 2023-04-04 16:20 | disposition home or self-care (01) | DRG 560 ==
LOC: ER 11:46 → EDBD 11:46 → TELE 18:14 → TELE-CENTR 04-01 11:48
PROVIDERS: ADMIT Nurse Practitioner; ATTEND Nurse Practitioner
PROC: BQ10ZZZ Fluoroscopy of Right Hip (ICD-10-PCS; 2023-04-01)
PROC: 0SW9XJZ Revision of Synthetic Substitute in Right Hip Joint, External Approach (ICD-10-PCS; principal; 2023-04-01 14:50)
DX: T84.020A Dislocation of internal right hip prosthesis, initial encounter (principal); I48.20 Chronic atrial fibrillation, unspecified; I50.32 Chronic diastolic (congestive) heart failure; J96.10 Chronic respiratory failure, unspecified whether with hypoxia or hypercapnia; E03.9 Hypothyroidism, unspecified; I11.0 Hypertensive heart disease with heart failure; I25.10 Atherosclerotic heart disease of native coronary artery without angina pectoris; J44.9 Chronic obstructive pulmonary disease, unspecified; E11.9 Type 2 diabetes mellitus without complications; E78.5 Hyperlipidemia, unspecified; I48.0 Paroxysmal atrial fibrillation; M10.9 Gout, unspecified; F32.A Depression, unspecified; E66.01 Morbid (severe) obesity due to excess calories; K21.9 Gastro-esophageal reflux disease without esophagitis; R00.1 Bradycardia, unspecified; Z96.641 Presence of right artificial hip joint; Y79.2 Prosthetic and other implants, materials and accessory orthopedic devices associated with adverse incidents; Z79.01 Long term (current) use of anticoagulants; Z88.2 Allergy status to sulfonamides; Z79.899 Other long term (current) drug therapy; Z82.0 Family history of epilepsy and other diseases of the nervous system; Z82.3 Family history of stroke; Z82.49 Family history of ischemic heart disease and other diseases of the circulatory system; Z83.3 Family history of diabetes mellitus; Z86.711 Personal history of pulmonary embolism; Z90.49 Acquired absence of other specified parts of digestive tract; Z98.61 Coronary angioplasty status; Z90.710 Acquired absence of both cervix and uterus; Z68.28 Body mass index [BMI] 28.0-28.9, adult; Z98.51 Tubal ligation status; Y92.89 Other specified places as the place of occurrence of the external cause
CPT/HCPCS: 36415; 71045; 73501; 73502; 76000; 80053; 81001; 83690; 83735; 83880; 84443; 84484; 84550; 85025; 85610; 86850; 86900; 86901; 87081; 93005; 93306; 94640; 97110; 97116; 97163; 97530; G0378; J0690; J2001; J2405; J2704; P9047

== ENCOUNTER 2023-08-31 18:05 | Emergency (ER) | payer MEDICARE, MEDICAID ==
[~2023-08-31 18:05] MED LIST changes: -ACET-6 PO; -CHOL100047 PO; -POTA-180 PO
[2023-08-31] MEDS ORDERED: LACTULOSE 20Gm/30ML SOLN PO ONE (18:45)
[2023-08-31] MEDS ORDERED: FLEET ENEMA(ADULT) 135 ML PR ONE (18:45)
== END 2023-08-31 20:12 | disposition left against medical advice (07) ==
LOC: ER 18:05
DX: K59.00 Constipation, unspecified (principal); Z53.21 Procedure and treatment not carried out due to patient leaving prior to being seen by health care provider

== ENCOUNTER 2023-09-22 23:49 | Inpatient (IN) | payer MEDICARE, MEDICAID ==
[~2023-09-22] VITALS: Ht 160 cm; Wt 69.7 kg
[2023-09-23] VITALS (8 sets, daily range): BP systolic 134–163; BP diastolic 58–71; PULSE 56–76; RESP 16–22; TEMP 97.5–98.1; O2SAT 93–96
[2023-09-23 00:14] LABS: Basophils # (auto) 0 10 ^3/uL (0-0.2); Basophils % (auto) 0.2 % (0.0-2.0); Eosinophils # (auto) 0.1 10 ^3/uL (0-0.8); Eosinophils % (auto) 0.6 % (0.0-7.0); Hematocrit 37.7 % (36.0-46.0); Hemoglobin 12.8 g/dL (12.2-16.2); Lymphocytes # (auto) 1.1 10 ^3/uL (0.4-5.4); Lymphocytes % (auto) 12.3 % (10.0-50.0); Mean Corpuscular Hemoglobin 32.6 pg (28.0-32.0); Mean Corpuscular Volume 96.1 fL (80.0-100.0); Monocytes # (auto) 0.8 10 ^3/uL (0-1.3); Monocytes % (auto) 8.2 % (0.0-12.0); Neutrophils # (auto) 7.2 10 ^3/uL (1.6-8.6); Neutrophils % (auto) 78.7 % (37.0-80.0); Red Blood Cells 3.92 10^6/uL (4.0-5.20); Red Cell Distribution Width 14.6 % (11.8-14.3); White Blood Cell 9.2 10^3/uL (4.4-10.8)
[2023-09-23] MEDS: cloNIDine HCL 0.1 MG TAB PO ONE (00:28)
[2023-09-23 00:29] LABS: INR 1.07 (0.9-1.15); Partial Thromboplastin Time 25.5 SEC (24.5-34.5); Prothrombin Time 11.2 sec (9.3-11.8)
[2023-09-23 00:30] LABS: Alanine Aminotransferase 15 U/L (7-40); Albumin 3.9 g/dL (3.2-4.8); Alkaline Phosphatase 76 U/L (46-116); Anion Gap 6 (5-15); Aspartate Aminotransferase 15 U/L (13-40); Blood Urea Nitrogen 15 mg/dL (9-23); Calcium 9.2 mg/dL (8.7-10.4); Carbon Dioxide 26 mmol/L (20-30); Chloride 106 mmol/L (98-107); Glucose 180 mg/dL (74-106); Magnesium 2.1 mg/dL (1.6-2.6); Potassium 3.6 mmol/L (3.5-5.1); Sodium 138 mmol/L (136-145)
[2023-09-23 00:31] LABS: Bilirubin, Total 0.6 mg/dL (0.2-1.0); Total Protein 6.1 g/dL (5.7-8.2)
[2023-09-23] MEDS ORDERED: MORPHINE SULFATE INJ 2 MG/ml SYRG IV PRN ×2 (01:45)
[2023-09-23] MEDS ORDERED: ACETAMINOPHEN 325 MG TAB PO PRN (01:45)
[2023-09-23] MEDS ORDERED: hydrALAZINE HCL 20 MG/ML VL IV PRN (01:45)
[2023-09-23] MEDS ORDERED: NITROGLYCERIN 0.4 MG SL TAB SL PRN (01:45)
[2023-09-23] MEDS: LISINOPRIL 20 MG TAB PO SCH (02:56)
[2023-09-23] MEDS: FUROSEMIDE 40 MG TAB PO SCH (02:57)
[2023-09-23] MEDS: GABAPENTIN 300 MG CAP PO SCH (06:08)
[2023-09-23] MEDS: LEVOTHYROXINE SODIUM 50 MCG TAB PO SCH (06:59)
[2023-09-23] MEDS: PANTOPRAZOLE 40 MG TAB PO SCH (09:50)
[2023-09-23] MEDS: MAGNESIUM OXIDE 400 MG TAB PO SCH (09:50)
[2023-09-23] MEDS: PRAVASTATIN SODIUM 20 MG TAB PO SCH (09:50)
[2023-09-23] MEDS: AMIODARONE HCL 200 MG TAB PO SCH ×2 (09:50→22:11)
[2023-09-23] MEDS: APIXABAN 2.5 MG TAB PO SCH (09:51)
[2023-09-23] MEDS ORDERED: ASCO500T11 PO (10:23)
[2023-09-23] MEDS ORDERED: TRAM50TA2 PO (10:23)
[2023-09-23] MEDS ORDERED: ACET-1881 PO (10:23)
[2023-09-23] MEDS ORDERED: MULT-1018 PO (10:23)
[2023-09-23] MEDS ORDERED: NITR0.4S29 SL (10:23)
[2023-09-23] MEDS ORDERED: DOCU-265 PO (10:23)
[2023-09-23] MEDS ORDERED: MAGN400S25 PO (10:23)
[2023-09-23] MEDS ORDERED: NITR100C6 PO (10:23)
[2023-09-23] MEDS ORDERED: POTA-220 PO (10:23)
[2023-09-23] MEDS: traZODone HCL 50 MG TAB PO SCH (22:11)
[2023-09-24] VITALS (7 sets, daily range): BP systolic 104–160; BP diastolic 51–67; PULSE 59–65; RESP 17–20; TEMP 97.4–98.3; O2SAT 93–98
[2023-09-24 05:46] LABS: Basophils # (auto) 0 10 ^3/uL (0-0.2); Basophils % (auto) 0.2 % (0.0-2.0); Eosinophils # (auto) 0 10 ^3/uL (0-0.8); Eosinophils % (auto) 0.7 % (0.0-7.0); Hematocrit 35.8 % (36.0-46.0); Hemoglobin 12.4 g/dL (12.2-16.2); Lymphocytes # (auto) 1.1 10 ^3/uL (0.4-5.4); Mean Corpuscular Hgb Conc. 34.6 g/dL (32.0-36.0); Mean Corpuscular Volume 95.4 fL (80.0-100.0); Monocytes # (auto) 0.5 10 ^3/uL (0-1.3); Monocytes % (auto) 7.7 % (0.0-12.0); Neutrophils # (auto) 5.4 10 ^3/uL (1.6-8.6); Neutrophils % (auto) 76.4 % (37.0-80.0); Nucleated Red Blood Cells % 0.1 %; Red Blood Cells 3.76 10^6/uL (4.0-5.20)
[2023-09-24 06:04] LABS: Alanine Aminotransferase 13 U/L (7-40); Albumin 3.3 g/dL (3.2-4.8); Alkaline Phosphatase 64 U/L (46-116); Anion Gap 5 (5-15); Aspartate Aminotransferase 11 U/L (13-40); Blood Urea Nitrogen 18 mg/dL (9-23); Calcium 9.1 mg/dL (8.7-10.4); Carbon Dioxide 29 mmol/L (20-30); Chloride 105 mmol/L (98-107); Glucose 165 mg/dL (74-106); Potassium 3.6 mmol/L (3.5-5.1); Sodium 139 mmol/L (136-145)
[2023-09-24 06:05] LABS: Bilirubin, Total 1.1 mg/dL (0.2-1.0); Total Protein 5.2 g/dL (5.7-8.2)
[2023-09-24] MEDS: HYDROcodone-ACET 5/325MG TAB PO PRN (08:19)
[2023-09-24] MEDS ORDERED: LEVO75TA6 PO (13:58)
[2023-09-24] MEDS ORDERED: PANT40TA2 PO (14:03)
== END 2023-09-24 20:15 | disposition home or self-care (01) | DRG 305 ==
LOC: ER 23:49 → TELE 09-23 01:50 → TELE-CENTR 09-23 09:05
PROVIDERS: ADMIT Nurse Practitioner; ATTEND Nurse Practitioner
DX: I16.0 Hypertensive urgency (principal); I50.32 Chronic diastolic (congestive) heart failure; I48.20 Chronic atrial fibrillation, unspecified; J96.10 Chronic respiratory failure, unspecified whether with hypoxia or hypercapnia; J98.11 Atelectasis; E11.9 Type 2 diabetes mellitus without complications; I11.0 Hypertensive heart disease with heart failure; I25.10 Atherosclerotic heart disease of native coronary artery without angina pectoris; J44.9 Chronic obstructive pulmonary disease, unspecified; E03.9 Hypothyroidism, unspecified; E78.5 Hyperlipidemia, unspecified; I48.0 Paroxysmal atrial fibrillation; M10.9 Gout, unspecified; K21.9 Gastro-esophageal reflux disease without esophagitis; F32.A Depression, unspecified; Z86.73 Personal history of transient ischemic attack (TIA), and cerebral infarction without residual deficits; Z86.711 Personal history of pulmonary embolism; Z88.2 Allergy status to sulfonamides; Z79.899 Other long term (current) drug therapy; Z82.49 Family history of ischemic heart disease and other diseases of the circulatory system; Z83.3 Family history of diabetes mellitus; Z90.49 Acquired absence of other specified parts of digestive tract; Z90.710 Acquired absence of both cervix and uterus; Z98.61 Coronary angioplasty status; Z82.0 Family history of epilepsy and other diseases of the nervous system; Z82.3 Family history of stroke; Z79.01 Long term (current) use of anticoagulants
CPT/HCPCS: 36415; 71045; 73700; 80053; 83735; 83880; 84484; 85025; 85610; 85730; 93005; 93306; 97110; 97116; 97163; 97530; 99291; G0378

== ENCOUNTER 2024-02-23 07:01 | Day surgery (SDC) | payer MEDICARE, MEDICAID ==
[2024-02-18 11:32] LABS: Urine Bacteria None Seen /hpf (None Seen)
[2024-02-18 11:57] LABS: Basophils # (auto) 0 10 ^3/uL (0-0.2); Basophils % (auto) 0.7 % (0.0-2.0); Eosinophils # (auto) 0.3 10 ^3/uL (0-0.8); Eosinophils % (auto) 4.1 % (0.0-7.0); Hematocrit 34.7 % (36.0-46.0); Hemoglobin 12.1 g/dL (12.2-16.2); Lymphocytes # (auto) 1.5 10 ^3/uL (0.4-5.4); Lymphocytes % (auto) 23.7 % (10.0-50.0); Mean Corpuscular Hgb Conc. 34.8 g/dL (32.0-36.0); Mean Corpuscular Volume 97.8 fL (80.0-100.0); Monocytes # (auto) 0.6 10 ^3/uL (0-1.3); Monocytes % (auto) 10.1 % (0.0-12.0); Neutrophils # (auto) 3.8 10 ^3/uL (1.6-8.6); Neutrophils % (auto) 61.4 % (37.0-80.0); Nucleated Red Blood Cells % 0.1 %; Platelet Count (auto) 151 10^3/uL (140-450); Red Blood Cells 3.54 10^6/uL (4.0-5.20); Red Cell Distribution Width 14.7 % (11.8-14.3); White Blood Cell 6.2 10^3/uL (4.4-10.8)
[2024-02-18 11:58] LABS: INR 1.1 (0.9-1.15); Partial Thromboplastin Time 27.8 SEC (24.5-34.5); Prothrombin Time 11.6 sec (9.3-11.8)
[2024-02-18 12:10] LABS: Urine Blood Negative /uL (Negative); Urine Clarity Clear (Clear); Urine Color Yellow (Yellow); Urine Protein, UAD Negative (Negative); Urine Specific Gravity 1.013 (1.001-1.035); Urine Urobilinogen Normal (Negative); Urine WBC 2 /hpf (0 - 5); Urine pH 5.5 (5.0-9.0)
[2024-02-18 13:02] LABS: Anion Gap 7 (5-15); Carbon Dioxide 29 mmol/L (20-30); Chloride 106 mmol/L (98-107); Potassium 3.4 mmol/L (3.5-5.1); Sodium 142 mmol/L (136-145)
[2024-02-18 13:03] LABS: Calcium 9.4 mg/dL (8.7-10.4)
[2024-02-18 13:08] LABS: BUN/Creatinine Ratio 11.5 (10.0-20.0); Blood Urea Nitrogen 13 mg/dL (9-23); Glucose 125 mg/dL (74-106)
[2024-02-23] VITALS (8 sets, daily range): BP systolic 136–152; BP diastolic 48–102; PULSE 46–54; RESP 13–19; O2SAT 91–98
[~2024-02-23] VITALS: Ht 160 cm; Wt 66.7 kg
[~2024-02-23 07:01] MED LIST changes: +ACET-1881 PO; +ASCO500T11 PO; -CEPH500C PO; +CHOL20007 PO; +CLON0.1T PO; +DOCU-265 PO; +FLUO-126 PO; -LEVO50TA7 PO; +LEVO75TA6 PO; -LISI-275 PO; -MAGN400T40 PO; +MULT-1018 PO; +NITR0.4S29 SL; -OMEP1CAP70 PO; +ONDA-155 PO; +PANT40TA2 PO; +POTA10PO PO; +TRAM50TA2 PO
[2024-02-23] MEDS ORDERED: IODIXANOL 320MG/ML 100ML BTL IV ONE (07:34)
[2024-02-23] MEDS ORDERED: ANGIOMAX 250 MG VIAL IV ONE (08:19)
[2024-02-23] MEDS ORDERED: HEPARIN SODIUM (PORCINE) 5000 UNITS/ML 1ML VIAL ONE (08:19)
[2024-02-23] MEDS ORDERED: MIDAZOLAM HCL 2MG/2ML 2ml VIAL (1mg/ml) ONE (08:19)
[2024-02-23] MEDS ORDERED: SODIUM CHL 0.9% 0 ML ONE (08:19)
[2024-02-23] MEDS ORDERED: VERAPAMIL 2.5MG/ML INJ 2ML VIAL IV ONE (08:19)
[2024-02-23] MEDS ORDERED: LIDOCAINE 2%HCL (LOCAL ANESTH.) INJ 20ML MDV ONE (08:19)
[2024-02-23] MEDS ORDERED: fentaNYL CITRATE 100 MCG/2 ML VL ONE (08:19)
== END 2024-02-23 11:03 | disposition home or self-care (01) ==
LOC: CATH 07:01
PROVIDERS: ATTEND Internal Medicine Cardiovascular Disease
DX: R06.02 Shortness of breath (principal); I10 Essential (primary) hypertension; I25.10 Atherosclerotic heart disease of native coronary artery without angina pectoris; I48.91 Unspecified atrial fibrillation; I08.1 Rheumatic disorders of both mitral and tricuspid valves; E03.9 Hypothyroidism, unspecified; E78.5 Hyperlipidemia, unspecified; J44.9 Chronic obstructive pulmonary disease, unspecified; F32.A Depression, unspecified; Z79.899 Other long term (current) drug therapy; Z98.890 Other specified postprocedural states; Z88.2 Allergy status to sulfonamides; Z82.49 Family history of ischemic heart disease and other diseases of the circulatory system; Z82.3 Family history of stroke
CPT/HCPCS: 36415; 71045; 80048; 81001; 85025; 85610; 85730; 93458; C1894; J1644; J2250; J3010; J7030; Q9967; 99152

== ENCOUNTER 2024-09-13 12:56 | Inpatient (IN) | payer MEDICARE, MEDICAID ==
[~2024-09-13] VITALS: Ht 160 cm; Wt 69.0 kg
--- NOTE | 2024-09-13 14:02 | DVH ---
CT ABDOMEN AND PELVIS WITHOUT CONTRAST CLINICAL HISTORY: flank pain TECHNIQUE: Multiple contiguous axial images of the abdomen and pelvis without intravenous contrast. T he images were reformatted degenerate coronal and sagittal reconstructions. All CT scans at this medical facility are performed using dose modulation techniques as appropriate t o a performed exam including the following:Automated exposure control was utilized; adjustment of the MA and/or KV according to patient size; and use of iterative reconstruction technique. Radiation Dose Information: CT Dose: CTDI volume is 9.48 mGy. Dose-length product is 497.8 mGy*cm Comparison: CT CHST AB PEL WO CON-NO IV/ORAL on DOS: 02/17/23 FINDINGS: Evaluation of the abdomen and pelvis is limited without intravenous contrast. Gallbladder is surgically absent. The liver, pancreas, kidneys, adrenal glands, and spleen appear within normal limits. There is no gross evidence of abdominal lymphadenopathy. There is no free fluid or free air. There is a moderate size hiatal hernia. The small and large bowel loops demonstrate normal caliber a nd distribution. There are multiple diverticula in the sigmoid colon without evidence of acute divert iculitis. The appendix is not seen in the right lower quadrant abdomen. There are no secondary signs of acute appendicitis. The abdominal aorta and IVC appear within normal limits. There is large amount of streak artifact from hardware in the proximal femurs limiting evaluation of the pelvis. Bladder poorly filled limiting evaluation. The uterus is likely surgically absent. There is no gross evidence of a pelvic mass. There is no free fluid collection. There are calcified granuloma in the right lower lobe. The left lung base is clear. There are multilevel degenerative changes in the lumbar spine. There is a chronic appearing compressi on deformity of the T12 vertebral body. IMPRESSION: 1. There is no acute process in the abdomen and pelvis. 2. Sigmoid diverticulosis without evidence of acute diverticulitis. 3. Moderate size hiatal hernia. 4. Chronic appearing compression deformity of the T12 vertebral body. HS:Y
[2024-09-13 14:12] LABS: Urine Bacteria FEW /hpf (None Seen); Urine Blood Negative /uL (Negative); Urine Clarity Turbid (Clear); Urine Color Yellow (Yellow); Urine Protein, UAD Negative (Negative); Urine Specific Gravity 1.013 (1.001-1.035); Urine Squamous Epithelial Cell MOD /hpf (<5); Urine Urobilinogen 2 mg/dL (Negative); Urine WBC 7 /HPF (0-5); Urine pH 6.5 (5.0-9.0)
--- NOTE | 2024-09-13 14:25 | ED.PDOC ---
General HPI Comments HPI: 89 y/o F, with PMHX of gerd, depression, pulmonary embolism, UTI, HTN, HLD, CAD, CHF, thyroid, GOUT, COPD and DM presents to the ED for CC of flank pain. Patient states, she has been experiencing intermittent right flank pain with associated back pain x1year. Patient denies dysuria, hematuria, fever, chills, or inability to void. No other symptoms or modifying factors present at this time. VITALS: Temp: 98.5 BP:110/92 HR:89 RR:15 SPO2:97% Past medical history: GERD, DEPRESSION, PE, UTI, HTN, HLD, CAD, CHF, THYROID, GOUT, COPD, DM Past surgical history: TONSILLECTOMY, CHOLECYSTECTOMY, R HIP, L HIP, APPENDECTOMY, HYSTERECTOMY BARMORE: HPI: Poor Historian. REVIEW OF SYSTEMS: CONSTITUTIONAL: Denies acute: fever, diaphoresis, chills, generalized weakness. HEAD: Denies acute: headache, photophobia Eyes: Denies acute: Double vision, vision loss, eye pain, eye discharge. EARS: Denies acute: tinnitus, hearing loss, ear discharge, ear pain, THROAT: Denies acute: sore throat, swelling, difficulty swallowing , pain with swallowing, change in voice. NECK: Denies acute: neck pain, neck swelling, stiff neck. HEART: Denies acute : chest pain, palpitations, LUNGS: Denies acute: SOB, wheezing, cough, hemoptysis ABDOMEN: Denies acute: abdominal pain, Nausea, Vomiting, diarrhea, melena , hematemesis, hematochezia SKIN: Denies acute: rash, redness, lesions, itchiness. EXTREMITIES: Denies acute: calf pain, numbness, tingling, weakness, denies pain in extremity. Neuro: Denies acute: focal neurological deficit, motor or sensory focal neurological deficit, tremors, seizure like activity, confusion, dizziness, change in mental status, loss of bowel or bladder function, cauda equina like symptoms. : Denies acute: dysuria, hematuria, flank pain, increase in urinary frequency. PSYCH: Denies acute: hallucination, suicidal ideation, homicidal ideation. FEMALE: Denies acute: abnormal vaginal bleeding, foul odor, unusual discharge. PHYSICAL EXAM: General: ------mild--acute distress, awake and alert. Head: normocephalic, atraumatic. Neck: supple, trachea is midline, no swelling. Throat: Normal phonation. Eyes:, no erythema, no purulent discharge, no proptosis, no icterus. Heart: regular rate, regular rhythm, no significant murmur appreciated. Lungs: no apparent respiratory distress, Able to speak in full sentences. No wheezing, no rhonchi, no crackles. No stridors Clear to auscultation bilaterally. Abdomen: non tender to palpation, non distended, soft, no guarding, no rebound, + bowel sounds. Obese No rashes or lesions appreciated in the area of pain Neuro: Awake, Alert, oriented to name, self, situation, follows commands GCS=15. Speech is normal. Skin: no petechia, no purpura, no cyanosis, non-pale, not jaundice. Lower extremities: --no - Pitting edema no deformity, no focal swelling, no calf TTP. Makes eye contact. moves all four extremities. Face: no apparent facial droop. Minimal right CVA tenderness to percussion . Evaluation of the area of pain. Patient points to her right lower lumbosacral iliac crest region of pain that sometimes radiates and wraps around the right anterior abdomen. Pain is worse with movement. ED COURSE: Chief Complaint: Flank Pain Time Seen by MD: 13:30 Primary Care Provider: OVI Reviewed notes: Nurses Notes, Medications, Allergies Allergies: Coded Allergies: Sulfa Antibiotics (Verified Allergy, Unknown, 02/18/24) Home Meds Active Scripts Nitrofurantoin Monohydrate Mac (Macrobid) 100 Mg Cap, 100 MG PO BID for 7 Days, #14 CAP Prov:CHERI ANTHONY DO 09/13/24 Apixaban Base (ELIQUIS) 2.5 Mg Tab, 2.5 MG PO BID for 30 Days, #60 TAB Prov:TENA HEATH PSYCHIATRIC AIDE 02/13/23 Furosemide (Furosemide) 40 Mg Tab, 40 MG PO DAILY for 30 Days, #30 TAB Prov:TENA HEATH PSYCHIATRIC AIDE 11/30/22 Metoprolol Tartrate (Lopressor) 25 Mg Tb, 25 MG PO Q12HR for 30 Days, #60 TAB 0 Refills Prov:TENA HEATH PSYCHIATRIC AIDE 11/30/22 Albuterol Sulfate (Albuterol Sulfate) 0.083 % Neb, 1 VIAL NEB UD, #50 VIAL Prov:Gina Meade 12/04/21 Reported Medications Hydrocodone-Acetaminophen (Hydrocodone Bitartrate/AC 5-325 mg) 1 Tab Tab, 1 TAB PO Q4HPRN PRN for MODERATE TO SEVERE PAIN 4-10, TAB 02/18/24 Cholecalciferol (VITAMIN D3) 2,000 Unit Tab, 1 TAB PO DAILY, #30 TAB 5 Refills 02/18/24 Ondansetron HCl (Ondansetron) 4 Mg Tab, 4 MG PO Q4HPRN PRN for NAUSEA, TAB 02/18/24 Clonidine Hydrochloride (Clonidine Hcl) 0.1 Mg Tab, 0.1 MG PO Q6HPRN PRN for SBP>160, MG 02/18/24 Potassium Chloride (Pokonza) 10 Meq Pow, 20 MEQ PO DAILY for SUPPLEMENT, POW 02/18/24 Amiodarone Hcl (Amiodarone Hcl) 200 Mg Tab, 200 MG PO DAILY for A.FIB 02/18/24 Fluoxetine Hcl (Fluoxetine Hcl) 10 Mg Cap, 10 MG PO DAILY for depression, MG 02/18/24 Pantoprazole Sodium Sesquihydr (Protonix) 40 Mg Tab, 40 MG PO BEFORE BREAKFAST, TAB 09/24/23 Levothyroxine Sodium (Levothyroxine Sodium) 75 Mcg Tab, 75 MCG PO QAM 09/24/23 Tramadol Hcl (Tramadol Hcl) 50 Mg Tab, 50 MG PO BIDP PRN for PAIN SCALE 1 THRU 6, MG 09/23/23 Multiple Vitamin (Multivitamins) Tab, 1 TAB PO DAILY, #90 TAB 3 Refills 09/23/23 Ascorbic Acid (VITAMIN C TABLET) 500 Mg Tb, 1 TAB PO BID, #30 TAB 3 Refills 09/23/23 Nitroglycerin (NTROSTAT SUBLINGUAL) 0.4 Mg Sl, 0.4 MG SL PRN, TAB *MAY REPEAT EVERY 5 MINUTES X 3 TOTAL IF NO RELIEF, INITIATE ANALGESIC THERAPY. NOTIFY PHYSICIAN *Do not crush. 09/23/23 Docusate Sodium (Docusate Sodium) 100 Mg Cap, 100 MG PO BID, CAP 09/23/23 Acetaminophen (Acetaminophen) 325 Mg Tab, 650 MG PO Q4HP PRN for MILD PAIN for 30 Days, MG 0 Refills 09/23/23 Pravastatin Sodium (PRAVACHOL TABLET) 20 Mg Tb, 2 TAB PO DAILY for HIGH CHOLESTEROL, #90 TAB 3 Refills 12/04/21 Trazodone Hcl (Trazodone Hcl) 50 Mg Tab, 1 TAB PO HS, MG 01/23/20 Gabapentin (Gabapentin) 300 Mg Cap, 300 MG PO HS for NEUROPATHY for 30 Days, MG 11/23/18 Allopurinol (ZYLOPRIM TABLET) 100 Mg Tb, 1 TAB PO DAILY, #30 TAB 5 Refills 09/19/14 Information Source: Patient, Relative Mode of Arrival: Wheelchair Severity: Moderate Inability to void: None Timing: Months Duration: Since onset Prehospital treatment: None Onset: Spontaneous History of: UTI Location: (R) Flank Modifying factors: None associated signs and symptoms: None Was a procedure done? Was a procedure done?: No Differential Diagnosis Kidney stone (Female): N/A Urinary Problem (Female): Other (DDX included but not limited to Cauda Equina syndrome, lumbar radiculopathy, arthritis, disk herniation, sciatica, muscle strain, epidural abscess, transverse myelitis. Cord compression, spinal foraminal stenosis, spinal fractures, spondylosis, central canal stenosis, trauma, muscle sprain/strain, aneurysm/dissection, kidney stones, shingles, arthritis, Guillan Nisula, neoplasm.) X-Ray, Labs, Meds, VS Vital Signs Date Time Temp Pulse Resp B/P (MAP) Pulse Ox O2 Delivery O2 Flow Rate FiO2 09/13/24 17:29 98.9 86 16 124/88 (100) 96 98.9 09/13/24 14:39 98.5 85 20 150/89 (109) 93 98.5 09/13/24 14:39 85 20 93 Room Air* 0 21 09/13/24 13:48 86 09/13/24 13:10 98.5 89 15 110/92 (98) 97 98.5 Lab Test 09/13/24 14:18 09/13/24 13:45 Range/Units White Blood Count 6.9 4.4-10.8 10^3/uL Red Blood Count 3.82 L 4.0-5.20 10^6/uL Hemoglobin 12.9 12.2-16.2 g/dL Hematocrit 37.5 36.0-46.0 % Mean Corpuscular Volume 98.0 80.0-100.0 fL Mean Corpuscular Hemoglobin 33.6 H 28.0-32.0 pg Mean Corpuscular Hemoglobin Concent 34.3 32.0-36.0 g/dL Red Cell Distribution Width 13.2 11.8-14.3 % Platelet Count 190 140-450 10^3/uL Mean Platelet Volume 8.5 6.9-10.8 fL Neutrophils (%) (Auto) 70.9 37.0-80.0 % Lymphocytes (%) (Auto) 17.9 10.0-50.0 % Monocytes (%) (Auto) 7.9 0.0-12.0 % Eosinophils (%) (Auto) 2.3 0.0-7.0 % Basophils (%) (Auto) 1.0 0.0-2.0 % Neutrophils # (Auto) 4.9 1.6-8.6 10 ^3/uL Lymphocytes # (Auto) 1.2 0.4-5.4 10 ^3/uL Monocytes # (Auto) 0.5 0-1.3 10 ^3/uL Eosinophils # (Auto) 0.2 0-0.8 10 ^3/uL Basophils # (Auto) 0.1 0-0.2 10 ^3/uL Nucleated Red Blood Cells 0.0 % Sodium Level 143 136-145 mmol/L Potassium Level 3.2 L 3.5-5.1 mmol/L Chloride Level 100 98-107 mmol/L Carbon Dioxide Level 34 H 20-31 mmol/L Anion Gap 9 5-15 Blood Urea Nitrogen 14 9-23 mg/dL Creatinine 1.40 H 0.550-1.02 mg/dL Glomerular Filtration Rate Calc 36 >90 mL/min BUN/Creatinine Ratio 10.0 10.0-20.0 Serum Glucose 137 H 74-106 mg/dL Lactic Acid Level 1.2 0.4-2.0 mmol/L Calcium Level 10.0 8.7-10.4 mg/dL Total Bilirubin 0.8 0.2-1.0 mg/dL Aspartate Amino Transferase (AST) 18 13-40 U/L Alanine Aminotransferase (ALT) 10 7-40 U/L Alkaline Phosphatase 76 46-116 U/L Troponin I High Sensitivity 7 </=34 ng/L Total Protein 6.1 5.7-8.2 g/dL Albumin 4.1 3.2-4.8 g/dL Urine Color Yellow Yellow Urine Clarity Turbid H Clear Urine pH 6.5 5.0-9.0 Urine Specific Garvin 1.013 1.001-1.035 Urine Protein Negative Negative Urine Ketones Negative Negative Urine Blood Negative Negative /uL Urine Nitrite Negative Negative Urine Bilirubin Negative Negative Urine Urobilinogen 2 H Negative mg/dL Urine Leukocyte Esterase 1+ Negative /uL Urine RBC 2 0 - 4 /hpf Urine Microscopic WBC 7 H 0-5 /HPF Urine Squamous Epithelial Cells Mod <5 /hpf Urine Bacteria Few H None Seen /hpf Urine Glucose Normal Normal mg/dL Current Medications Medications (Trade) Dose Ordered Sig/Lupe Route Start Time Stop Time Status Last Admin Potassium Chloride (Klor-Con Tablet) 40 meq ONCE ONCE PO 09/13/24 16:45 09/13/24 16:54 DC 09/13/24 17:04 Ceftriaxone Sodium (Rocephin) 1,000 mg ONCE ONCE IM 09/13/24 17:00 09/13/24 17:01 DC 09/13/24 17:04 [place] [id number] Ph: [phone] DIAGNOSTIC IMAGING Diagnostic Imaging Report : [id number] Signed PATIENT: ARSENIO SMITH ACCT: [id number] UNIT: [id number] : 1935 LOC: ER ROOM / BED: / AGE / SEX: 89 / F ADM STATUS: REG ER SERVICE 1320 ORDERING PHYSICIAN: CHERI ANTHONY DO PROCEDURE(s): ABPL - CT AB PEL WO CON-NO ORAL OR IV REASON: flank pain ORDER NUMBER(s): [id number], ACCESSION NUMBER(s): [id number] CT ABDOMEN AND PELVIS WITHOUT CONTRAST CLINICAL HISTORY: flank pain TECHNIQUE: Multiple contiguous axial images of the abdomen and pelvis without intravenous contrast. The images were reformatted degenerate coronal and sagittal reconstructions. All CT scans at this medical facility are performed using dose modulation techniques as appropriate to a performed exam including the following:Automated exposure control was utilized; adjustment of the MA and/or KV according to patient size; and use of iterative reconstruction technique. Radiation Dose Information: CT Dose: CTDI volume is 9.48 mGy. Dose-length product is 497.8 mGy*cm Comparison: CT CHST AB PEL WO CON-NO IV/ORAL on DOS: 02/17/23 FINDINGS: Evaluation of the abdomen and pelvis is limited without intravenous contrast. Gallbladder is surgically absent. The liver, pancreas, kidneys, adrenal glands, and spleen appear within normal limits. There is no gross evidence of abdominal lymphadenopathy. There is no free fluid or free air. There is a moderate size hiatal hernia. The small and large bowel loops dem onstrate normal caliber and distribution. There are multiple diverticula in the sigmoid colon without evidence of acute diverticulitis. The appendix is not seen in the right lower quadrant abdomen. There are no secondary signs of acute appendicitis. The abdominal aorta and IVC appear within normal limits. There is large amount of streak artifact from hardware in the proximal femurs limiting evaluation of the pelvis. Bladder poorly filled limiting evaluation. The uterus is likely surgically absent. There is no gross evidence of a pelvic mass. There is no free fluid collection. There are calcified granuloma in the right lower lobe. The left lung base is clear. There are multilevel degenerative changes in the lumbar spine. There is a chronic appearing compression deformity of the T12 vertebral body. IMPRESSION: 1. There is no acute process in the abdomen and pelvis. 2. Sigmoid diverticulosis without evidence of acute diverticulitis. 3. Moderate size hiatal hernia. 4. Chronic appearing compression deformity of the T12 vertebral body. HS:Y ATED BY: LUIS MIGUEL MELCHOR MD DICTATED DATE/TIME: 09/13/24 1400 SIGNED BY: LUIS MIGUEL MELCHOR MD SIGNED DATE/TIME: 09/13/241399 CC: Time of 1ST Reevaluation: 14:00 Reevaluation 1ST: Unchanged Patient Education/Counseling: Diagnosis, Treatment Family Education/Counseling: Diagnosis, Treatment Comments Patient presented with the above HPI.---right low back pain---workup was initiated. patient was found with the above mentioned diagnosis. the following medications were ordered: please refer to order lists of meds and tests obtained by myself Dr. Anthony. Patient ED course and VS have been stabilized. Patient has been reassessed in the ED and remained in a stable condition. Pertinent incidental findings were discussed with the patient and/or family. Patient/family voices understanding and is agreeable with plan. Patient has been observed in the ED adequate length of time to insure improvement/stability. Escalation of care considered: Consideration of escalation to observation or admission Antibiotics initiated. Patient was ADMITTED to the medicine team for further evaluation and treatment of their presentation. All the reports of any imaging studies that were ordered by myself were reviewed by myself. Departure 1 Departure Time of Disposition: 16:37 Impression: Primary Impression: UTI (urinary tract infection) Additional Impression: T12 compression fracture Disposition: ADMITTED INPATIENT Admit to: Tele Condition: Guarded Additional Instructions: [place] [address] Ph: [phone] DIAGNOSTIC IMAGING Diagnostic Imaging Report : [id number] Signed PATIENT: ARSENIO SMITH ACCT: [id number] UNIT: [id number] : 1935 LOC: ER ROOM / BED: / AGE / SEX: 89 / F ADM STATUS: REG ER SERVICE 1320 ORDERING PHYSICIAN: CHERI ANTHONY DO PROCEDURE(s): ABPL - CT AB PEL WO CON-NO ORAL OR IV REASON: flank pain ORDER NUMBER(s): [id number], ACCESSION NUMBER(s): [id number] CT ABDOMEN AND PELVIS WITHOUT CONTRAST CLINICAL HISTORY: flank pain TECHNIQUE: Multiple contiguous axial images of the abdomen and pelvis without intravenous contrast. The images were reformatted degenerate coronal and sagittal reconstructions. All CT scans at this medical facility are performed using dose modulation techniques as appropriate to a performed exam including the following:Automated exposure control was utilized; adjustment of the MA and/or KV according to patient size; and use of iterative reconstruction technique. Radiation Dose Information: CT Dose: CTDI volume is 9.48 mGy. Dose-length product is 497.8 mGy*cm Comparison: CT CHST AB PEL WO CON-NO IV/ORAL on DOS: 02/17/23 FINDINGS: Evaluation of the abdomen and pelvis is limited without intravenous contrast. Gallbladder is surgically absent. The liver, pancreas, kidneys, adrenal glands, and spleen appear within normal limits. There is no gross evidence of abdominal lymphadenopathy. There is no free fluid or free air. There is a moderate size hiatal hernia. The small and large bowel loops demonstrate normal caliber and distribution. There are multiple diverticula in the sigmoid colon without evidence of acute diverticulitis. The appendix is not seen in the right lower quadrant abdomen. There are no secondary signs of acute appendicitis. The abdominal aorta and IVC appear within normal limits. There is large amount of streak artifact from hardware in the proximal femurs limiting evaluation of the pelvis. Bladder poorly filled limiting evaluation. The uterus is likely surgically absent. There is no gross evidence of a pelvic mass. There is no free fluid collection. There are calcified granuloma in the right lower lobe. The left lung base is clear. There are multilevel degenerative changes in the lumbar spine. There is a chronic appearing compression deformity of the T12 vertebral body. IMPRESSION: 1. There is no acute process in the abdomen and pelvis. 2. Sigmoid diverticulosis without evidence of acute diverticulitis. 3. Moderate size hiatal hernia. 4. Chronic appearing compression deformity of the T12 vertebral body. HS:Y ATED BY: LUIS MIGUEL MELCHOR MD DICTATED DATE/TIME: 09/13/24 1400 SIGNED BY: LUIS MIGUEL MELCHOR MD SIGNED DATE/TIME: 09/13/24 1400 CC: e-Prescriptions Nitrofurantoin Monohydrate Mac (Macrobid) 100 Mg Cap 100 MG PO BID for 7 Days, #14 CAP Prov: CHERI ANTHONY DO 09/13/24 Discharged With: Self, Relative Critical Care Note Critical Care Time?: No Heart Score Heart Score: Heart Score Response (Comments) Value History N/A 0 EKG N/A 0 Age N/A 0 Risk Factors N/A 0 Troponin N/A 0 Total 0 I personally scribed for CHERI ANTHONY DO ([email or web address]) on 09/13/24 at 14:25. Electronically submitted by Aylin Abebe ([email or web address]). I personally scribed for CHERI ANTHONY DO ([email or web address]) on 09/13/24 at 15:15. Ellen ctronically submitted by Aylin Abebe ([email or web address]). I personally scribed for CHERI ANTHONY DO ([email or web address]) on 09/13/24 at 16:34. Electron ically submitted by Aylin Abebe ([email or web address]). CHERI ANTHONY DO Sep 13, 2024 14:25
[2024-09-13 14:32] LABS: Basophils # (auto) 0.1 10 ^3/uL (0-0.2); Eosinophils # (auto) 0.2 10 ^3/uL (0-0.8); Eosinophils % (auto) 2.3 % (0.0-7.0); Hematocrit 37.5 % (36.0-46.0); Hemoglobin 12.9 g/dL (12.2-16.2); Lymphocytes # (auto) 1.2 10 ^3/uL (0.4-5.4); Lymphocytes % (auto) 17.9 % (10.0-50.0); Mean Corpuscular Hemoglobin 33.6 pg (28.0-32.0); Mean Corpuscular Hgb Conc. 34.3 g/dL (32.0-36.0); Monocytes # (auto) 0.5 10 ^3/uL (0-1.3); Monocytes % (auto) 7.9 % (0.0-12.0); Neutrophils # (auto) 4.9 10 ^3/uL (1.6-8.6); Neutrophils % (auto) 70.9 % (37.0-80.0); Platelet Count (auto) 190 10^3/uL (140-450); Red Blood Cells 3.82 10^6/uL (4.0-5.20); Red Cell Distribution Width 13.2 % (11.8-14.3); White Blood Cell 6.9 10^3/uL (4.4-10.8)
[2024-09-13 14:39] VITALS: PULSE 85; RESP 20; O2SAT 93
[2024-09-13 14:53] LABS: Alanine Aminotransferase 10 U/L (7-40); Albumin 4.1 g/dL (3.2-4.8); Alkaline Phosphatase 76 U/L (46-116); Anion Gap 9 (5-15); Aspartate Aminotransferase 18 U/L (13-40); Bilirubin, Total 0.8 mg/dL (0.2-1.0); Blood Urea Nitrogen 14 mg/dL (9-23); Chloride 100 mmol/L (98-107); Sodium 143 mmol/L (136-145); Total Protein 6.1 g/dL (5.7-8.2)
[2024-09-13 14:55] LABS: Carbon Dioxide 34 mmol/L (20-31); Glucose 137 mg/dL (74-106); Potassium 3.2 mmol/L (3.5-5.1)
[2024-09-13] MEDS: cefTRIAXone 1GM/50ML D5W 50 ML IV ONE (15:45)
[2024-09-13] MEDS ORDERED: NITR-87 PO (16:40)
[2024-09-13] MEDS: cefTRIAXone SOD 1,000 MG VL IM ONE (17:04)
[2024-09-13] MEDS: POTASSIUM CHL 20 Meq TABLET PO ONE (17:04)
--- NOTE | 2024-09-13 19:55 | DVHHP2 ---
Admitting Diagnosis: Admission Date: 09/13/24 R flank Pain History of Present Illness Patient is a 89-year-old female with a medical history of depression, pulmonary embolism, GERD, HTN, HLD, UTI, CHF, CAD, thyroid, gout, COPD, and DM presents to the ED for flank pain. Patient states she is experienced this intermittent right flank pain with back pain for the past year. Patient denies any other symptoms or modifying factors at this time. While in the emergency department the patient was evaluated by the provider, As per provider: Labs, vital signs, and imagining monitored. Patient will be admitted for further evaluation and treatment. I discussed admission with the patient/family and is in agreement to treatment plan Patient Family History: Cerebrovascular accident (CVA) FH: myocardial infarction G8 SISTER FHx: multiple sclerosis G8 SISTER, Family history: Cardiovascular disease G8 FATHER Family history: Diabetes mellitus G8 MOTHER Family history: Hypertension G8 MOTHER G8 FATHER Stroke G8 FATHER Allergies: Coded Allergies: Sulfa Antibiotics (Verified Allergy, Unknown, 02/18/24) Home Meds Active Scripts Nitrofurantoin Monohydrate Mac (Macrobid) 100 Mg Cap, 100 MG PO BID for 7 Days, #14 CAP Prov:CHERI ANTHONY DO 09/13/24 Apixaban Base (ELIQUIS) 2.5 Mg Tab, 2.5 MG PO BID for 30 Days, #60 TAB Prov:TENA HEATH TYPING BOOKKEEPER 02/13/23 Furosemide (Furosemide) 40 Mg Tab, 40 MG PO DAILY for 30 Days, #30 TAB Prov:TENA HEATH TYPING BOOKKEEPER 11/30/22 Metoprolol Tartrate (Lopressor) 25 Mg Tb, 25 MG PO Q12HR for 30 Days, #60 TAB 0 Refills Prov:TENA HEATH TYPING BOOKKEEPER 11/30/22 Albuterol Sulfate (Albuterol Sulfate) 0.083 % Neb, 1 VIAL NEB UD, #50 VIAL Prov:Gina Meade 12/04/21 Reported Medications Hydralazine Hcl (Hydralazine Hcl) 10 Mg Tab, 10 MG PO Q6HR PRN for SBP>160 for 30 Days, MG 09/14/24 Hydrocodone-Acetaminophen (Hydrocodone Bitartrate/AC 5-325 mg) 1 Tab Tab, 1 TAB PO Q4HPRN PRN for MODERATE TO SEVERE PAIN 4-10, TAB 02/18/24 Cholecalciferol (VITAMIN D3) 2,000 Unit Tab, 1 TAB PO DAILY, #30 TAB 5 Refills 02/18/24 Ondansetron HCl (Ondansetron) 4 Mg Tab, 4 MG PO Q4HPRN PRN for NAUSEA, TAB 02/18/24 Clonidine Hydrochloride (Clonidine Hcl) 0.1 Mg Tab, 0.1 MG PO Q6HPRN PRN for SBP>160, MG 02/18/24 Potassium Chloride (Pokonza) 10 Meq Pow, 20 MEQ PO DAILY for SUPPLEMENT, POW 02/18/24 Amiodarone Hcl (Amiodarone Hcl) 200 Mg Tab, 200 MG PO DAILY for A.FIB 02/18/24 Fluoxetine Hcl (Fluoxetine Hcl) 10 Mg Cap, 10 MG PO DAILY for depression, MG 02/18/24 Pantoprazole Sodium Sesquihydr (Protonix) 40 Mg Tab, 40 MG PO BEFORE BREAKFAST, TAB 09/24/23 Levothyroxine Sodium (Levothyroxine Sodium) 75 Mcg Tab, 75 MCG PO QAM 09/24/23 Tramadol Hcl (Tramadol Hcl) 50 Mg Tab, 50 MG PO BIDP PRN for PAIN SCALE 1 THRU 6, MG 09/23/23 Multiple Vitamin (Multivitamins) Tab, 1 TAB PO DAILY, #90 TAB 3 Refills 09/23/23 Ascorbic Acid (VITAMIN C TABLET) 500 Mg Tb, 1 TAB PO BID, #30 TAB 3 Refills 09/23/23 Nitroglycerin (NTROSTAT SUBLINGUAL) 0.4 Mg Sl, 0.4 MG SL PRN, TAB *MAY REPEAT EVERY 5 MINUTES X 3 TOTAL IF NO RELIEF, INITIATE ANALGESIC THERAPY. NOTIFY PHYSICIAN *Do not crush. 09/23/23 Docusate Sodium (Docusate Sodium) 100 Mg Cap, 100 MG PO BID, CAP 09/23/23 Acetaminophen (Acetaminophen) 325 Mg Tab, 650 MG PO Q4HP PRN for MILD PAIN for 30 Days, MG 0 Refills 09/23/23 Pravastatin Sodium (PRAVACHOL TABLET) 20 Mg Tb, 2 TAB PO DAILY for HIGH CHOLESTEROL, #90 TAB 3 Refills 12/04/21 Trazodone Hcl (Trazodone Hcl) 50 Mg Tab, 1 TAB PO HS, MG 01/23/20 Gabapentin (Gabapentin) 300 Mg Cap, 300 MG PO HS for NEUROPATHY for 30 Days, MG 11/23/18 Allopurinol (ZYLOPRIM TABLET) 100 Mg Tb, 1 TAB PO DAILY, #30 TAB 5 Refills 09/19/14 Current Medications Current Medications Medications (Trade) Dose Ordered Sig/Lupe Route PRN Reason Start Time Stop Time Status Last Admin Ceftriaxone Sodium 50 ml @ 100 mls/hr DAILY IV 09/14/24 10:00 09/14/24 09:37 Allopurinol (Zyloprim Tablet) 100 mg DAILY PO 09/14/24 10:00 09/14/24 09:38 Amiodarone HCl (Cordarone Tablet) 200 mg DAILY PO 09/14/24 10:00 09/14/24 09:37 Fluoxetine HCl (PROzac CAPSULE) 10 mg DAILY PO 09/14/24 10:00 09/14/24 09:38 Metoprolol Tartrate (Lopressor Tablet) 25 mg Q12HR PO 09/13/24 22:00 09/14/24 21:08 Cyclobenzaprine HCl (Flexeril Tablet) 5 mg Q8HPRN PRN PO FOR MUSCLE SPASM 09/14/24 09:15 09/14/24 12:10 Review of Systems Constitutional: denies chills, denies fever, denies malaise Eyes: denies eye pain, denies vision change ENT: denies ear pain, denies headache, denies nasal congestion, denies painful swallowing, denies voice change Cardiovascular: denies chest pain, denies edema, denies orthopnea, denies palpitations, denies paroxysmal nocturnal dyspnea Respiratory: denies cough, denies shortness of breath Gastrointestinal: denies constipation, denies diarrhea, denies nausea, denies vomiting Genitourinary: denies dysuria, denies frequent urination, denies urethral discharge Musculoskeletal: denies back pain, denies joint pain, denies muscle pain Skin: denies bruising, denies itching, denies rash Neurological: denies focal weakness, denies headache, denies sensory changes Psychiatric: denies anxiety, denies depression Endocrine: denies polydipsia, denies polyuria Hematologic/Lymphatic: denies easy bleeding, denies easy bruising, denies enlarged lymph nodes Allergic/Immunologic: denies allergy, denies hives Vital Signs Vital Signs Date Time Temp Pulse Resp B/P (MAP) Pulse Ox O2 Delivery O2 Flow Rate FiO2 09/14/24 21:08 69 125/58 09/14/24 20:51 98.4 14 95 98.4 09/14/24 20:24 Room Air* 0 21 Physical Exam General Appearance: alert, no distress HEENT: EOMI, PERRLA, normal external inspect of ears, no icterus, no nasal drainage Neck: no carotid bruit, no jugular venous distention (JVD), no lymphadenopathy Chest: normal thorax Respiratory: clear to auscultation, normal air movement Cardiovascular: regular rate and rhythm, no diastolic murmur, no jugular venous distention (JVD), no rub, no systolic murmur Abdominal: soft, no hepatomegaly, no mass, no splenomegaly, no tenderness Genitourinary: grossly normal external Musculoskeletal: no joint tenderness, no swelling Extremities: normal pulses, no calf tenderness, no clubbing, no cyanosis, no edema Skin: no bruising, no jaundice, no rash Neurological: alert, No focal deficit Results Labs Test 09/14/24 05:25 09/13/24 14:18 09/13/24 13:45 Range/Units White Blood Count 6.7 4.4-10.8 10^3/uL Red Blood Count 3.54 L 4.0-5.20 10^6/uL Hemoglobin 12.1 L 12.2-16.2 g/dL Hematocrit 34.9 L 36.0-46.0 % Mean Corpuscular Volume 98.5 80.0-100.0 fL Mean Corpuscular Hemoglobin 34.1 H 28.0-32.0 pg Mean Corpuscular Hemoglobin Concent 34.6 32.0-36.0 g/dL Red Cell Distribution Width 13.2 11.8-14.3 % Platelet Count 172 140-450 10^3/uL Mean Platelet Volume 8.9 6.9-10.8 fL Neutrophils (%) (Auto) 67.0 37.0-80.0 % Lymphocytes (%) (Auto) 21.0 10.0-50.0 % Monocytes (%) (Auto) 8.9 0.0-12.0 % Eosinophils (%) (Auto) 2.2 0.0-7.0 % Basophils (%) (Auto) 0.9 0.0-2.0 % Neutrophils # (Auto) 4.5 1.6-8.6 10 ^3/uL Lymphocytes # (Auto) 1.4 0.4-5.4 10 ^3/uL Monocytes # (Auto) 0.6 0-1.3 10 ^3/uL Eosinophils # (Auto) 0.1 0-0.8 10 ^3/uL Basophils # (Auto) 0.1 0-0.2 10 ^3/uL Nucleated Red Blood Cells 0.0 % Hepatitis B Surface Antigen Negative Negative Hepatitis C Antibody Negative Negative Sodium Level 143 136-145 mmol/L Potassium Level 3.2 L 3.5-5.1 mmol/L Chloride Level 100 98-107 mmol/L Carbon Dioxide Level 34 H 20-31 mmol/L Anion Gap 9 5-15 Blood Urea Nitrogen 14 9-23 mg/dL Creatinine 1.40 H 0.550-1.02 mg/dL Glomerular Filtration Rate Calc 36 >90 mL/min BUN/Creatinine Ratio 10.0 10.0-20.0 Serum Glucose 137 H 74-106 mg/dL Lactic Acid Level 1.2 0.4-2.0 mmol/L Calcium Level 10.0 8.7-10.4 mg/dL Total Bilirubin 0.8 0.2-1.0 mg/dL Aspartate Amino Transferase (AST) 18 13-40 U/L Alanine Aminotransferase (ALT) 10 7-40 U/L Alkaline Phosphatase 76 46-116 U/L Troponin I High Sensitivity 7 </=34 ng/L Total Protein 6.1 5.7-8.2 g/dL Albumin 4.1 3.2-4.8 g/dL Urine Color Yellow Yellow Urine Clarity Turbid H Clear Urine pH 6.5 5.0-9.0 Urine Specific [place] 1.013 1.001-1.035 Urine Protein Negative Negative Urine Ketones Negative Negative Urine Blood Negative Negative /uL Urine Nitrite Negative Negative Urine Bilirubin Negative Negative Urine Urobilinogen 2 H Negative mg/dL Urine Leukocyte Esterase 1+ Negative /uL Urine RBC 2 0 - 4 /hpf Urine Microscopic WBC 7 H 0-5 /HPF Urine Squamous Epithelial Cells Mod <5 /hpf Urine Bacteria Few H None Seen /hpf Urine Glucose Normal Normal mg/dL Plan 1. Right flank pain Monitor 2. Possible UTI Monitor, IV antibiotics 3. GERD Monitor, PPI 4. CAD Monitor, restart home medications 5. HLD Monitor, DVT prophylaxis, PPI 6. COPD Monitor, as needed albuterol 7. History of PE Monitor, DVT prophylaxis 8. Chronic T12 compression fracture Monitor, CT abdomen pelvis Plan discussed with: Patient, Other TENA HEATH TYPING BOOKKEEPER Sep 13, 2024 19:55
[2024-09-13] MEDS ORDERED: NITROGLYCERIN 0.4 MG SL TAB SL PRN (20:00)
[2024-09-13] MEDS ORDERED: ONDANSETRON HCL 4 MG/2 ML VIAL IV PRN (20:00)
[2024-09-13] MEDS ORDERED: MORPHINE SULFATE INJ 2 MG/ml SYRG IV PRN (20:00)
[2024-09-13 22:15] VITALS: BP 151/74; PULSE 85; RESP 17; TEMP 98.2; O2SAT 95
[2024-09-13 22:44] VITALS: BP 151/74; PULSE 84; PULSE 85; RESP 17; RESP 18; TEMP 98.2; O2SAT 94; O2SAT 95
[2024-09-13] MEDS: METOPROLOL TARTRATE 25 MG TAB PO SCH (23:01)
[2024-09-14] VITALS (8 sets, daily range): BP systolic 125–148; BP diastolic 56–77; PULSE 65–94; RESP 14–19; TEMP 97.9–98.6; O2SAT 72–99
[2024-09-14] MEDS ORDERED: HYDR-2792 PO (00:43)
[2024-09-14 06:20] LABS: Basophils # (auto) 0.1 10 ^3/uL (0-0.2); Basophils % (auto) 0.9 % (0.0-2.0); Eosinophils # (auto) 0.1 10 ^3/uL (0-0.8); Eosinophils % (auto) 2.2 % (0.0-7.0); Hematocrit 34.9 % (36.0-46.0); Hemoglobin 12.1 g/dL (12.2-16.2); Lymphocytes # (auto) 1.4 10 ^3/uL (0.4-5.4); Mean Corpuscular Hemoglobin 34.1 pg (28.0-32.0); Mean Corpuscular Hgb Conc. 34.6 g/dL (32.0-36.0); Mean Corpuscular Volume 98.5 fL (80.0-100.0); Monocytes # (auto) 0.6 10 ^3/uL (0-1.3); Monocytes % (auto) 8.9 % (0.0-12.0); Neutrophils # (auto) 4.5 10 ^3/uL (1.6-8.6); Platelet Count (auto) 172 10^3/uL (140-450); Red Blood Cells 3.54 10^6/uL (4.0-5.20); Red Cell Distribution Width 13.2 % (11.8-14.3); White Blood Cell 6.7 10^3/uL (4.4-10.8)
--- NOTE | 2024-09-14 08:18 | DVHINCON2 ---
Consultation - Spinal Surgery Date Seen: Sep 14, 2024 Referring Physician Referring Physician Attending Doctor: Tena Heath Process Coordinator Reason for Consultation T 12 fx History of Present Illness History of Present Illness 89 y/o F, with PMHX of gerd, depression, pulmonary embolism, UTI, HTN, HLD, CAD, CHF, thyroid, GOUT, COPD and DM presents to the ED for CC of flank pain. Patient states, she has been experiencing intermittent right flank pain with associated back pain x1year. Patient denies dysuria, hematuria, fever, chills, or inability to void. No other symptoms or modifying factors present at this time. Past Medical/Surgical History Past Medical/Surgical History Past medical history: GERD, DEPRESSION, PE, UTI, HTN, HLD, CAD, CHF, THYROID, GOUT, COPD, DM Family and Social History Family and Social History Past surgical history: TONSILLECTOMY, CHOLECYSTECTOMY, R HIP, L HIP, APPENDECTOM Y, HYSTERECTOMY Allergies and medications Allergies: Coded Allergies: Sulfa Antibiotics (Verified Allergy, Unknown, 02/18/24) Home Meds Active Scripts Nitrofurantoin Monohydrate Mac (Macrobid) 100 Mg Cap, 100 MG PO BID for 7 Days, #14 CAP Prov:CHERI ANTHONY DO 09/13/24 Apixaban Base (ELIQUIS) 2.5 Mg Tab, 2.5 MG PO BID for 30 Days, #60 TAB Prov:TENA HEATH NP 02/13/23 Furosemide (Furosemide) 40 Mg Tab, 40 MG PO DAILY for 30 Days, #30 TAB Prov:TENA HEATH NP 11/30/22 Metoprolol Tartrate (Lopressor) 25 Mg Tb, 25 MG PO Q12HR for 30 Days, #60 TAB 0 Refills Prov:TENA HEATH NP 11/30/22 Albuterol Sulfate (Albuterol Sulfate) 0.083 % Neb, 1 VIAL NEB UD, #50 VIAL Prov:Gina Meade 12/04/21 Reported Medications Hydralazine Hcl (Hydralazine Hcl) 10 Mg Tab, 10 MG PO Q6HR PRN for SBP>160 for 30 Days, MG 09/14/24 Hydrocodone-Acetaminophen (Hydrocodone Bitartrate/AC 5-325 mg) 1 Tab Tab, 1 TAB PO Q4HPRN PRN for MODERATE TO SEVERE PAIN 4-10, TAB 02/18/24 Cholecalciferol (VITAMIN D3) 2,000 Unit Tab, 1 TAB PO DAILY, #30 TAB 5 Refills 02/18/24 Ondansetron HCl (Ondansetron) 4 Mg Tab, 4 MG PO Q4HPRN PRN for NAUSEA, TAB 02/18/24 Clonidine Hydrochloride (Clonidine Hcl) 0.1 Mg Tab, 0.1 MG PO Q6HPRN PRN for SBP>160, MG 02/18/24 Potassium Chloride (Pokonza) 10 Meq Pow, 20 MEQ PO DAILY for SUPPLEMENT, POW 02/18/24 Amiodarone Hcl (Amiodarone Hcl) 200 Mg Tab, 200 MG PO DAILY for A.FIB 02/18/24 Fluoxetine Hcl (Fluoxetine Hcl) 10 Mg Cap, 10 MG PO DAILY for depression, MG 02/18/24 Pantoprazole Sodium Sesquihydr (Protonix) 40 Mg Tab, 40 MG PO BEFORE BREAKFAST, TAB 09/24/23 Levothyroxine Sodium (Levothyroxine Sodium) 75 Mcg Tab, 75 MCG PO QAM 09/24/23 Tramadol Hcl (Tramadol Hcl) 50 Mg Tab, 50 MG PO BIDP PRN for PAIN SCALE 1 THRU 6, MG 09/23/23 Multiple Vitamin (Multivitamins) Tab, 1 TAB PO DAILY, #90 TAB 3 Refills 09/23/23 Ascorbic Acid (VITAMIN C TABLET) 500 Mg Tb, 1 TAB PO BID, #30 TAB 3 Refills 09/23/23 Nitroglycerin (NTROSTAT SUBLINGUAL) 0.4 Mg Sl, 0.4 MG SL PRN, TAB *MAY REPEAT EVERY 5 MINUTES X 3 TOTAL IF NO RELIEF, INITIATE ANALGESIC THERAPY. NOTIFY PHYSICIAN *Do not crush. 09/23/23 Docusate Sodium (Docusate Sodium) 100 Mg Cap, 100 MG PO BID, CAP 09/23/23 Acetaminophen (Acetaminophen) 325 Mg Tab, 650 MG PO Q4HP PRN for MILD PAIN for 30 Days, MG 0 Refills 09/23/23 Pravastatin Sodium (PRAVACHOL TABLET) 20 Mg Tb, 2 TAB PO DAILY for HIGH CHOLESTEROL, #90 TAB 3 Refills 12/04/21 Trazodone Hcl (Trazodone Hcl) 50 Mg Tab, 1 TAB PO HS, MG 01/23/20 Gabapentin (Gabapentin) 300 Mg Cap, 300 MG PO HS for NEUROPATHY for 30 Days, MG 11/23/18 Allopurinol (ZYLOPRIM TABLET) 100 Mg Tb, 1 TAB PO DAILY, #30 TAB 5 Refills 09/19/14 Review of systems Review of Systems: HEENT:Abnormal (Patient complains of neck and shoulder pain weakness in her legs), CVS:Normal, RESPIRATORY:Normal, GI:Normal, :Normal, MSK:Abnormal (Weakness to bilateral lower extremities), NEURO:Normal (Patient able to independently move all extremities and sensation is intact) Examination Vital signs imaging studies CLINICAL INDICATION: r/o stenosis TECHNIQUE: 5 radiographic views of the lumbar were obtained. Comparison: None FINDINGS/IMPRESSION: Wedge-shaped compression fracture of T12 - L2 age indeterminate. Narrowed intervertebral joint space from T12 -L3 Levoscoliosis of the lumbar spine. Bipolar right hip prosthesis. Internal fixation screw in the left femur. : CT CERVICAL WITHOUT CONTRAST INDICATION: concern for cervical stenosis EXAM DATE: 09/14/2024 01:32 PM COMPARISON: CT CERVICAL WITHOUT CONTRAST on DOS: 02/17/23 TECHNIQUE: Multiple axial CT images of the cervical spine were obtained using bone algorithm. Axial and coronal reformatting was done. Bone and soft tissue windows were reviewed. Radiation Dose Information: CT Dose: CTDI volume is 25.79 mGy. Dose-length product is 669.63 mGy*cm FINDINGS: The cervical alignment is intact. No acute cervical spine fracture is identified. The vertebral body heights are intact. No suspicious osseous lesions are identified. Multilevel degenerative changes with calcified posterior disc osteophyte complex at C2-C3 through C5-C6 causing moderate spinal canal stenosis. There is no prevertebral soft tissue swelling. IMPRESSION: No evidence of acute cervical spine fracture or traumatic malalignment. Multilevel degenerative changes with calcified posterior disc osteophyte complex at C2-C3 through C5-C6 causing moderate spinal canal stenosis. All CT scans at this medical facility are performed using dose modulation techniques as appropriate to a performed exam including the following: Automated exposure control was utilized; adjustment of the MA and/or KV according to pat ient size; and use of iterative reconstruction technique. Vital Signs imaging studies Date Time Temp Pulse Resp B/P (MAP) Pulse Ox O2 Delivery O2 Flow Rate FiO2 09/14/24 04:44 97.9 71 17 125/77 (93) 95 97.9 09/13/24 22:44 Room Air* 0 21 Medications Current Medications Medications (Trade) Dose Ordered Sig/Lupe Route PRN Reason Start Time Stop Time Status Last Admin Ondansetron HCl (Zofran) 4 mg Q4HP PRN IV NAUSEA / VOMITING 09/13/24 20:00 Nitroglycerin (Ntrostat Sublingual) 0.4 mg Q5MINP PRN SL FOR CHEST PAIN 09/13/24 20:00 Morphine Sulfate 2 mg Q30M PRN IV FOR CHEST PAIN 09/13/24 20:00 Ceftriaxone Sodium 50 ml @ 100 mls/hr DAILY IV 09/14/24 10:00 Allopurinol (Zyloprim Tablet) 100 mg DAILY PO 09/14/24 10:00 Amiodarone HCl (Cordarone Tablet) 200 mg DAILY PO 09/14/24 10:00 Clonidine HCl (Catapres Tablet) 0.1 mg Q6HPRN PRN PO SBP>160 09/13/24 20:00 Fluoxetine HCl (PROzac CAPSULE) 10 mg DAILY PO 09/14/24 10:00 Acetaminophen/ Hydrocodone Bitart (Philipp 5/325MG Tab) 1 tab Q4HPRN PRN PO MODERATE TO SEVERE PAIN 4-10 09/13/24 20:00 Metoprolol Tartrate (Lopressor Tablet) 25 mg Q12HR PO 09/13/24 22:00 09/13/24 23:01 Laboratory Labs Test 09/14/24 05:25 09/13/24 14:18 09/13/24 13:45 Range/Units White Blood Count 6.7 4.4-10.8 10^3/uL Red Blood Count 3.54 L 4.0-5.20 10^6/uL Hemoglobin 12.1 L 12.2-16.2 g/dL Hematocrit 34.9 L 36.0-46.0 % Mean Corpuscular Volume 98.5 80.0-100.0 fL Mean Corpuscular Hemoglobin 34.1 H 28.0-32.0 pg Mean Corpuscular Hemoglobin Concent 34.6 32.0-36.0 g/dL Red Cell Distribution Width 13.2 11.8-14.3 % Platelet Count 172 140-450 10^3/uL Mean Platelet Volume 8.9 6.9-10.8 fL Neutrophils (%) (Auto) 67.0 37.0-80.0 % Lymphocytes (%) (Auto) 21.0 10.0-50.0 % Monocytes (%) (Auto) 8.9 0.0-12.0 % Eosinophils (%) (Auto) 2.2 0.0-7.0 % Basophils (%) (Auto) 0.9 0.0-2.0 % Neutrophils # (Auto) 4.5 1.6-8.6 10 ^3/uL Lymphocytes # (Auto) 1.4 0.4-5.4 10 ^3/uL Monocytes # (Auto) 0.6 0-1.3 10 ^3/uL Eosinophils # (Auto) 0.1 0-0.8 10 ^3/uL Basophils # (Auto) 0.1 0-0.2 10 ^3/uL Nucleated Red Blood Cells 0.0 % Sodium Level 143 136-145 mmol/L Potassium Level 3.2 L 3.5-5.1 mmol/L Chloride Level 100 98-107 mmol/L Carbon Dioxide Level 34 H 20-31 mmol/L Anion Gap 9 5-15 Blood Urea Nitrogen 14 9-23 mg/dL Creatinine 1.40 H 0.550-1.02 mg/dL Glomerular Filtration Rate Calc 36 >90 mL/min BUN/Creatinine Ratio 10.0 10.0-20.0 Serum Glucose 137 H 74-106 mg/dL Lactic Acid Level 1.2 0.4-2.0 mmol/L Calcium Level 10.0 8.7-10.4 mg/dL Total Bilirubin 0.8 0.2-1.0 mg/dL Aspartate Amino Transferase (AST) 18 13-40 U/L Alanine Aminotransferase (ALT) 10 7-40 U/L Alkaline Phosphatase 76 46-116 U/L Troponin I High Sensitivity 7 </=34 ng/L Total Protein 6.1 5.7-8.2 g/dL Albumin 4.1 3.2-4.8 g/dL Urine Color Yellow Yellow Urine Clarity Turbid H Clear Urine pH 6.5 5.0-9.0 Urine Specific [place] 1.013 1.001-1.035 Urine Protein Negative Negative Urine Ketones Negative Negative Urine Blood Negative Negative /uL Urine Nitrite Negative Negative Urine Bilirubin Negative Negative Urine Urobilinogen 2 H Negative mg/dL Urine Leukocyte Esterase 1+ Negative /uL Urine RBC 2 0 - 4 /hpf Urine Microscopic WBC 7 H 0-5 /HPF Urine Squamous Epithelial Cells Mod <5 /hpf Urine Bacteria Few H None Seen /hpf Urine Glucose Normal Normal mg/dL Examination: GENERAL:Normal, HEENT:Normal, NECK:Normal, LUNGS:Normal, CVS:Normal, ABDOMEN:Normal, MSK:Abnormal (Weakness reported in the standing position for patient), SKIN:Normal, NEURO:Abnormal (Inability to lift feet when she is ambulating), :Abnormal Problem List/Assessment/Plan Problems: (1) Fracture, thoracic vertebra, compression (2) Cervical stenosis of spinal canal Assessment and Plan Chronic appearing compression deformity of the T12 vertebral body This is a nonoperative fracture, no intervention needed for this finding as it is a old fracture. Patient C/O difficulty lifting her legs when she walks - we will order a CT c- spine to evaluate for cervical stenosis CT results show cervical spine stenosis which could be resulting in her inability to lift her legs and ambulate sufficiently resulting in frequent falls Patient should follow up with Dr. Tomi Jones on an outpatient basis for further evaluation For cervical stenosis Call [phone] for a appointment [address] [place] [address] Call with questions Jonel Schaeffer [facility] Orth[facility] Sp[facility] Surgery nurse practitioner For Dr Bonnie Jones Patient was examined, chart reviewed, labs evaluated, and diagnostic studies and findings analyzed. Case was discussed with Dr. Tomi Jones who formulated the plan of care. This medical document was created using an electronic medical record system with [employer] dictation system. Although this document has been carefully reviewed, there might still be some phonetic and typographical errors. These areas are purely typographical due to imperfections of the software programs, and do not reflect any compromise in the patient's medical care. Plan discussed with Plan discussed with: Patient RAFAEL SCHAEFFER FUR MACHINE OPERATOR Sep 14, 2024 08:18
[2024-09-14 09:12] LABS: Hepatitis B Surface Antigen Negative (Negative); Hepatitis C Antibody Negative (Negative)
--- NOTE | 2024-09-14 09:14 | DVHPN2 ---
Progress Note - Dictate Date Seen: Sep 14, 2024 Medical Necessity Reason Pt with a Central, PICC or Fol: No vital signs Vital Sign Date Time Temp Pulse Resp B/P (MAP) Pulse Ox O2 Delivery O2 Flow Rate FiO2 09/14/24 04:44 97.9 71 17 125/77 (93) 95 97.9 09/13/24 22:44 Room Air* 0 21 Total Intake and Output 09/13/24 09/13/24 09/14/24 15:00 23:00 07:00 Intake Total 250 ml Balance 250 ml medications Current Medications Medications Dose Ordered Sig/Lupe Route Start Time Stop Time Status Last Admin Dose Admin Ondansetron HCl 4 mg Q4HP PRN IV 09/13/24 20:00 Nitroglycerin 0.4 mg Q5MINP PRN SL 09/13/24 20:00 Morphine Sulfate 2 mg Q30M PRN IV 09/13/24 20:00 Ceftriaxone Sodium 50 ml @ 100 mls/hr DAILY IV 09/14/24 10:00 Allopurinol 100 mg DAILY PO 09/14/24 10:00 Amiodarone HCl 200 mg DAILY PO 09/14/24 10:00 Clonidine HCl 0.1 mg Q6HPRN PRN PO 09/13/24 20:00 Fluoxetine HCl 10 mg DAILY PO 09/14/24 10:00 Acetaminophen/ Hydrocodone Bitart 1 tab Q4HPRN PRN PO 09/13/24 20:00 Metoprolol Tartrate 25 mg Q12HR PO 09/13/24 22:00 09/13/24 23:01 25 MG objective General Appearance: alert, no distress HEENT: EOMI, PERRLA, normal external inspect of ears, no icterus, no nasal drainage Neck: no carotid bruit, no jugular venous distention (JVD), no lymphadenopathy Chest: normal thorax Respiratory: clear to auscultation, normal air movement Cardiovascular: regular rate and rhythm, no diastolic murmur, no jugular venous distention (JVD), no rub, no systolic murmur Abdominal: soft, no hepatomegaly, no mass, no splenomegaly, no tenderness Genitourinary: grossly normal external Musculoskeletal: no joint tenderness, no swelling Extremities: normal pulses, no calf tenderness, no clubbing, no cyanosis, no edema Skin: no bruising, no jaundice, no rash Neurological: alert, No focal deficit laboratory and microbiology Laboratory Tests 09/14/24 05:25 09/13/24 14:18 Test 09/13/24 14:18 Range/Units Serum Glucose 137 H 74-106 mg/dL Problem List 1. Right flank pain Monitor 2. Possible UTI Monitor, IV antibiotics 3. GERD Monitor, PPI 4. CAD Monitor, restart home medications 5. HLD Monitor, DVT prophylaxis, PPI 6. COPD Monitor, as needed albuterol 7. History of PE Monitor, DVT prophylaxis 8. Chronic T12 compression fracture Monitor, CT abdomen pelvis Assessment/Plan Subjective Patient is awake and alert. Objective Patient was admitted for right flank pain. CT imaging of the abdomen has no acute findings. Patient does have a chronic T-12 compression fracture. Patient was seen by orthopedic spinal surgeon. No surgery indicated at this time. Plan Obtain L spine X-Ray. Patient has a probable UTI. Continue IV antibiotics and PT eval. Plan discussed with: Patient, Other TENA HEATH NP Sep 14, 2024 09:14
[2024-09-14] MEDS: cefTRIAXone 1GM/50ML D5W 50 ML IV SCH (09:37)
[2024-09-14] MEDS: AMIODARONE HCL 200 MG TAB PO SCH (09:37)
[2024-09-14] MEDS: FLUoxetine HCL 10 MG CAP PO SCH (09:38)
[2024-09-14] MEDS: ALLOPURINOL 100 MG TAB PO SCH (09:38)
--- NOTE | 2024-09-14 11:54 | ECG ---
[facility] Test Date: 2024-09-13 Test Time: 13:48:54 Pat Name: ARSENIO SMITH Department: ER Room: 0205T A Gender: F Space Physicist: : [id number] Requested By: CHERI ANTHOYN Order Number: [id number] Reading MD: Salas Hutchison Measurements Intervals [place] Rate: 86 P: 0 MO: 0 QRS: -44 QRSD: 119 T: 155 QT: 457 QTc: 547 Interpretive Statements Atrial fibrillation Nonspecific IVCD with LAD Anteroseptal infarct, age indeterminate Baseline wander in lead(s) V1,V2 Electronically Signed On 09-15-2024 18:42:12 PDT by Salas Hutchison Please click the below link to view image of tracing.
[2024-09-14] MEDS: CYCLOBENZAPRINE HCL 10 MG TAB PO PRN (12:10)
--- NOTE | 2024-09-14 14:24 | DVH ---
EXAM: CT CERVICAL WITHOUT CONTRAST INDICATION: concern for cervical stenosis EXAM DATE: 09/14/2024 01:32 PM COMPARISON: CT CERVICAL WITHOUT CONTRAST on DOS: 02/17/23 TECHNIQUE: Multiple axial CT images of the cervical spine were obtained using bone algorithm. Axial a nd coronal reformatting was done. Bone and soft tissue windows were reviewed. Radiation Dose Information: CT Dose: CTDI volume is 25.79 mGy. Dose-length product is 669.63 mGy*cm FINDINGS: The cervical alignment is intact. No acute cervical spine fracture is identified. The vertebral body heights are intact. No suspicious osseous lesions are identified. Multilevel degenerative changes with calcified posterior disc osteophyte complex at C2-C3 through C5- C6 causing moderate spinal canal stenosis. There is no prevertebral soft tissue swelling. IMPRESSION: No evidence of acute cervical spine fracture or traumatic malalignment. Multilevel degenerative changes with calcified posterior disc osteophyte complex at C2-C3 through C5- C6 causing moderate spinal canal stenosis. All CT scans at this medical facility are performed using dose modulation techniques as appropriate t o a performed exam including the following: Automated exposure control was utilized; adjustment of th e MA and/or KV according to patient size; and use of iterative reconstruction technique.
--- NOTE | 2024-09-14 19:03 | DVH ---
CLINICAL INDICATION: r/o stenosis TECHNIQUE: 5 radiographic views of the lumbar were obtained. Comparison: None FINDINGS/IMPRESSION: Wedge-shaped compression fracture of T12 - L2 age indeterminate. Narrowed intervertebral joint space from T12 -L3 Levoscoliosis of the lumbar spine. Bipolar right hip prosthesis. Internal fixation screw in the left femur.
[2024-09-15] VITALS (8 sets, daily range): BP systolic 116–161; BP diastolic 56–70; PULSE 54–77; RESP 13–20; TEMP 97.6–98.1; O2SAT 92–99
[2024-09-15] MEDS: cloNIDine HCL 0.1 MG TAB PO PRN (00:53)
[2024-09-15] MEDS: HYDROcodone-ACET 5/325MG TAB PO PRN (09:06)
[2024-09-15 10:57] LABS: Basophils # (auto) 0.1 10 ^3/uL (0-0.2); Basophils % (auto) 1.1 % (0.0-2.0); Eosinophils # (auto) 0.2 10 ^3/uL (0-0.8); Eosinophils % (auto) 2.5 % (0.0-7.0); Hematocrit 34.8 % (36.0-46.0); Lymphocytes # (auto) 1.4 10 ^3/uL (0.4-5.4); Lymphocytes % (auto) 21.8 % (10.0-50.0); Mean Corpuscular Hemoglobin 33.9 pg (28.0-32.0); Mean Corpuscular Hgb Conc. 34.4 g/dL (32.0-36.0); Mean Corpuscular Volume 98.6 fL (80.0-100.0); Monocytes # (auto) 0.5 10 ^3/uL (0-1.3); Monocytes % (auto) 8.4 % (0.0-12.0); Neutrophils # (auto) 4.1 10 ^3/uL (1.6-8.6); Neutrophils % (auto) 66.2 % (37.0-80.0); Nucleated Red Blood Cells % 0.1 %; Platelet Count (auto) 161 10^3/uL (140-450); Red Blood Cells 3.53 10^6/uL (4.0-5.20); Red Cell Distribution Width 13.4 % (11.8-14.3); White Blood Cell 6.2 10^3/uL (4.4-10.8)
[2024-09-15 11:09] LABS: Calcium 9.8 mg/dL (8.7-10.4); Chloride 104 mmol/L (98-107); Sodium 141 mmol/L (136-145)
[2024-09-15 11:10] LABS: Anion Gap 8 (5-15); Carbon Dioxide 29 mmol/L (20-31); Potassium 3.4 mmol/L (3.5-5.1)
[2024-09-15 11:16] LABS: BUN/Creatinine Ratio 13.5 (10.0-20.0); Blood Urea Nitrogen 18 mg/dL (9-23)
[2024-09-15 11:17] LABS: Glucose 141 mg/dL (74-106)
--- NOTE | 2024-09-15 12:05 | DVHPN2 ---
Progress Note - Dictate Date Seen: Sep 15, 2024 Medical Necessity Reason Pt with a Central, PICC or Fol: No vital signs Vital Sign Date Time Temp Pulse Resp B/P (MAP) Pulse Ox O2 Delivery O2 Flow Rate FiO2 09/15/24 10:00 53 09/15/24 08:44 97.6 18 134/56 (82) 96 97.6 09/15/24 08:00 Room Air* 0 21 Total Intake and Output 09/14/24 09/14/24 09/15/24 15:00 23:00 07:00 Intake Total 50 ml 425 ml 150 ml Balance 50 ml 425 ml 150 ml medications Current Medications Medications Dose Ordered Sig/Lupe Route Start Time Stop Time Status Last Admin Dose Admin Ondansetron HCl 4 mg Q4HP PRN IV 09/13/24 20:00 Nitroglycerin 0.4 mg Q5MINP PRN SL 09/13/24 20:00 Morphine Sulfate 2 mg Q30M PRN IV 09/13/24 20:00 Ceftriaxone Sodium 50 ml @ 100 mls/hr DAILY IV 09/14/24 10:00 09/15/24 09:06 100 MLS/HR Allopurinol 100 mg DAILY PO 09/14/24 10:00 09/15/24 09:06 100 MG Amiodarone HCl 200 mg DAILY PO 09/14/24 10:00 09/14/24 09:37 200 MG Clonidine HCl 0.1 mg Q6HPRN PRN PO 09/13/24 20:00 09/15/24 00:53 0.1 MG Fluoxetine HCl 10 mg DAILY PO 09/14/24 10:00 09/15/24 09:06 10 MG Acetaminophen/ Hydrocodone Bitart 1 tab Q4HPRN PRN PO 09/13/24 20:00 09/15/24 09:06 1 TAB Metoprolol Tartrate 25 mg Q12HR PO 09/13/24 22:00 09/14/24 21:08 25 MG Cyclobenzaprine HCl 5 mg Q8HPRN PRN PO 09/14/24 09:15 09/14/24 12:10 5 MG objective General Appearance: alert, no distress HEENT: EOMI, PERRLA, normal external inspect of ears, no icterus, no nasal drainage Neck: no carotid bruit, no jugular venous distention (JVD), no lymphadenopathy Chest: normal thorax Respiratory: clear to auscultation, normal air movement Cardiovascular: regular rate and rhythm, no diastolic murmur, no jugular venous distention (JVD), no rub, no systolic murmur Abdominal: soft, no hepatomegaly, no mass, no splenomegaly, no tenderness Genitourinary: grossly normal external Musculoskeletal: no joint tenderness, no swelling Extremities: normal pulses, no calf tenderness, no clubbing, no cyanosis, no edema Skin: no bruising, no jaundice, no rash Neurological: alert, No focal deficit laboratory and microbiology Laboratory Tests 09/15/24 10:38 Test 09/15/24 10:38 Range/Units Serum Glucose 141 H 74-106 mg/dL Problem List 1. Right flank pain Monitor 2. Possible UTI Monitor, IV antibiotics 3. GERD Monitor, PPI 4. CAD Monitor, restart home medications 5. HLD Monitor, DVT prophylaxis, PPI 6. COPD Monitor, as needed albuterol 7. History of PE Monitor, DVT prophylaxis 8. Chronic T12 compression fracture Monitor, CT abdomen pelvis Assessment/Plan Subjective Patient is awake and alert. Objective I spoke with patient and her [id number] Chilo. Patient was admitted on September 13, 2024, due to severe back pain and unstable gait. Patient initially complained of right flank pain; however, imaging shows an indeterminable T12 compression fracture. Possible UTI; she is currently being treated with antibiotics. I discussed the plan of care with orthopedic spinal nurse practitioner who suggested continuing Flexeril and stated an abdominal binder may assist with patients pain. Family is willing to take patient home but will consider rehab or home health with PT if she continues to be max assist. Plan Continue physical therapy. Obtain abdominal binder. Continue therapy throughout the weekend and determine discharge planning on Wednesday. Plan discussed with: Patient, Other TENA HEATH NP Sep 15, 2024 12:05
--- NOTE | 2024-09-15 14:02 | ECG ---
[facility] Test Date: 2024-09-15 Test Time: 09:32:04 Pat Name: ARSENIO SMITH Department: Respiratoy Room: 0205T A Gender: F Public Speaking Instructor: LUCI : 1935 Requested By: TENA HEATH Order Number: [id number] Reading MD: Salas Hutchison Measurements Intervals [place] Rate: 48 P: 0 OR: 0 QRS: -17 QRSD: 96 T: 0 QT: 579 QTc: 518 Interpretive Statements Atrial fibrillation, slow ventricular response Borderline left axis deviation Probable anterior infarct, age indeterminate Prolonged QT interval Electronically Signed On 09-15-2024 18:34:12 PDT by Salas Hutchison Please click the below link to view image of tracing.
[2024-09-15] MEDS: CYCLOBENZAPRINE HCL 10 MG TAB PO SCH (21:11)
[2024-09-16] VITALS (9 sets, daily range): BP systolic 125–169; BP diastolic 60–86; PULSE 52–87; RESP 16–20; TEMP 97.7–98.5; O2SAT 92–97
--- NOTE | 2024-09-16 09:12 | DVHPN2 ---
Progress Note - Dictate Date Seen: Sep 16, 2024 Medical Necessity Reason Pt with a Central, PICC or Fol: No vital signs Vital Sign Date Time Temp Pulse Resp B/P (MAP) Pulse Ox O2 Delivery O2 Flow Rate FiO2 09/16/24 08:34 98.3 87 17 169/67 (101) 94 98.3 09/16/24 07:38 Room Air* 0 21 Total Intake and Output 09/15/24 09/15/24 09/16/24 15:00 23:00 07:00 Intake Total 50 ml 1030 ml 200 ml Output Total 1 ml Balance 50 ml 1029 ml 200 ml medications Current Medications Medications Dose Ordered Sig/Lupe Route Start Time Stop Time Status Last Admin Dose Admin Ondansetron HCl 4 mg Q4HP PRN IV 09/13/24 20:00 Nitroglycerin 0.4 mg Q5MINP PRN SL 09/13/24 20:00 Morphine Sulfate 2 mg Q30M PRN IV 09/13/24 20:00 Ceftriaxone Sodium 50 ml @ 100 mls/hr DAILY IV 09/14/24 10:00 09/15/24 09:06 100 MLS/HR Allopurinol 100 mg DAILY PO 09/14/24 10:00 09/15/24 09:06 100 MG Amiodarone HCl 200 mg DAILY PO 09/14/24 10:00 09/14/24 09:37 200 MG Clonidine HCl 0.1 mg Q6HPRN PRN PO 09/13/24 20:00 09/15/24 00:53 0.1 MG Fluoxetine HCl 10 mg DAILY PO 09/14/24 10:00 09/15/24 09:06 10 MG Acetaminophen/ Hydrocodone Bitart 1 tab Q4HPRN PRN PO 09/13/24 20:00 09/15/24 09:06 1 TAB Metoprolol Tartrate 25 mg Q12HR PO 09/13/24 22:00 09/14/24 21:08 25 MG Cyclobenzaprine HCl 5 mg Q8HR PO 09/15/24 22:00 09/16/24 04:58 5 MG objective General Appearance: alert, no distress HEENT: EOMI, PERRLA, normal external inspect of ears, no icterus, no nasal drainage Neck: no carotid bruit, no jugular venous distention (JVD), no lymphadenopathy Chest: normal thorax Respiratory: clear to auscultation, normal air movement Cardiovascular: regular rate and rhythm, no diastolic murmur, no jugular venous distention (JVD), no rub, no systolic murmur Abdominal: soft, no hepatomegaly, no mass, no splenomegaly, no tenderness Genitourinary: grossly normal external Musculoskeletal: no joint tenderness, no swelling Extremities: normal pulses, no calf tenderness, no clubbing, no cyanosis, no edema Skin: no bruising, no jaundice, no rash Neurological: alert, No focal deficit laboratory and microbiology Laboratory Tests 09/15/24 10:38 Test 09/15/24 10:38 Range/Units Serum Glucose 141 H 74-106 mg/dL Problem List 1. Right flank pain Monitor 2. Possible UTI Monitor, IV antibiotics 3. GERD Monitor, PPI 4. CAD Monitor, restart home medications 5. HLD Monitor, DVT prophylaxis, PPI 6. COPD Monitor, as needed albuterol 7. History of PE Monitor, DVT prophylaxis 8. Chronic T12 compression fracture Monitor, CT abdomen pelvis Assessment/Plan Subjective: Patient is awake and alert. Objective: Patient was admitted for severe back pain and possible UTI. Imaging shows an age-indeterminate T12 compression fracture. Patient has been a maximum assist per physical therapy evaluation and nursing reports. Patient has been reluctant to get out of bed and has had episodes of soiling herself. Spoke with family member Chilo yesterday, who is currently against [facility] facility placement. He was advised that patient is currently max assist and home health may not be sufficient for her care needs. Plan: Continue physical therapy. Continue Flexeril as recommended by orthopedic spinal surgeon. Use abdominal binder during ambulation. Continue pain medications as needed. Continue antibiotics for possible UTI. Plan discussed with: Patient, Other TENA HEATH PUBLIC RELATIONS ASSOCIATE Sep 16, 2024 09:12
--- NOTE | 2024-09-16 14:44 | DVHINCON2 ---
Date of service: Sep 16, 2024 History of Present Illness Home Meds Active Scripts Nitrofurantoin Monohydrate Mac (Macrobid) 100 Mg Cap, 100 MG PO BID for 7 Days, #14 CAP Prov:CHERI ANTHONY 09/13/24 Apixaban Base (ELIQUIS) 2.5 Mg Tab, 2.5 MG PO BID for 30 Days, #60 TAB Prov:TENA HEATH [employer] 02/13/23 Furosemide (Furosemide) 40 Mg Tab, 40 MG PO DAILY for 30 Days, #30 TAB Prov:TENA HEATH [employer] 11/30/22 Metoprolol Tartrate (Lopressor) 25 Mg Tb, 25 MG PO Q12HR for 30 Days, #60 TAB 0 Refills Prov:TENA HEATH [employer] 11/30/22 Albuterol Sulfate (Albuterol Sulfate) 0.083 % Neb, 1 VIAL NEB UD, #50 VIAL Prov:Gina Meade 12/04/21 Reported Medications Hydralazine Hcl (Hydralazine Hcl) 10 Mg Tab, 10 MG PO Q6HR PRN for SBP>160 for 30 Days, MG 09/14/24 Hydrocodone-Acetaminophen (Hydrocodone Bitartrate/AC 5-325 mg) 1 Tab Tab, 1 TAB PO Q4HPRN PRN for MODERATE TO SEVERE PAIN 4-10, TAB 02/18/24 Cholecalciferol (VITAMIN D3) 2,000 Unit Tab, 1 TAB PO DAILY, #30 TAB 5 Refills 02/18/24 Ondansetron HCl (Ondansetron) 4 Mg Tab, 4 MG PO Q4HPRN PRN for NAUSEA, TAB 02/18/24 Clonidine Hydrochloride (Clonidine Hcl) 0.1 Mg Tab, 0.1 MG PO Q6HPRN PRN for SBP>160, MG 02/18/24 Potassium Chloride (Pokonza) 10 Meq Pow, 20 MEQ PO DAILY for SUPPLEMENT, POW 02/18/24 Amiodarone Hcl (Amiodarone Hcl) 200 Mg Tab, 200 MG PO DAILY for A.FIB 02/18/24 Fluoxetine Hcl (Fluoxetine Hcl) 10 Mg Cap, 10 MG PO DAILY for depression, MG 02/18/24 Pantoprazole Sodium Sesquihydr (Protonix) 40 Mg Tab, 40 MG PO BEFORE BREAKFAST, TAB 09/24/23 Levothyroxine Sodium (Levothyroxine Sodium) 75 Mcg Tab, 75 MCG PO QAM 09/24/23 Tramadol Hcl (Tramadol Hcl) 50 Mg Tab, 50 MG PO BIDP PRN for PAIN SCALE 1 THRU 6, MG 09/23/23 Multiple Vitamin (Multivitamins) Tab, 1 TAB PO DAILY, #90 TAB 3 Refills 09/23/23 Ascorbic Acid (VITAMIN C TABLET) 500 Mg Tb, 1 TAB PO BID, #30 TAB 3 Refills 09/23/23 Nitroglycerin (NTROSTAT SUBLINGUAL) 0.4 Mg Sl, 0.4 MG SL PRN, TAB *MAY REPEAT EVERY 5 MINUTES X 3 TOTAL IF NO RELIEF, INITIATE ANALGESIC THERAPY. NOTIFY PHYSICIAN *Do not crush. 09/23/23 Docusate Sodium (Docusate Sodium) 100 Mg Cap, 100 MG PO BID, CAP 09/23/23 Acetaminophen (Acetaminophen) 325 Mg Tab, 650 MG PO Q4HP PRN for MILD PAIN for 30 Days, MG 0 Refills 09/23/23 Pravastatin Sodium (PRAVACHOL TABLET) 20 Mg Tb, 2 TAB PO DAILY for HIGH CHOLESTEROL, #90 TAB 3 Refills 12/04/21 Trazodone Hcl (Trazodone Hcl) 50 Mg Tab, 1 TAB PO HS, MG 01/23/20 Gabapentin (Gabapentin) 300 Mg Cap, 300 MG PO HS for NEUROPATHY for 30 Days, MG 11/23/18 Allopurinol (ZYLOPRIM TABLET) 100 Mg Tb, 1 TAB PO DAILY, #30 TAB 5 Refills 09/19/14 Past Medical History Patient Family History: Cerebrovascular accident (CVA) FH: myocardial infarction G8 SISTER FHx: multiple sclerosis G8 SISTER, Family history: Cardiovascular disease G8 FATHER Family history: Diabetes mellitus G8 MOTHER Family history: Hypertension G8 MOTHER G8 FATHER Stroke G8 FATHER H&P Exam Vital Signs Vital Signs Date Time Temp Pulse Resp B/P (MAP) Pulse Ox O2 Delivery O2 Flow Rate FiO2 09/16/24 12:54 98.0 68 17 153/86 (108) 97 98.0 09/16/24 07:38 Room Air* 0 21 Labs/Xrays Labs Test 09/15/24 10:38 09/14/24 05:25 09/13/24 14:18 4/2/25 13:45 Range/Units White Blood Count 6.2 4.4-10.8 10^3/uL Red Blood Count 3.53 L 4.0-5.20 10^6/uL Hemoglobin 12.0 L 12.2-16.2 g/dL Hematocrit 34.8 L 36.0-46.0 % Mean Corpuscular Volume 98.6 80.0-100.0 fL Mean Corpuscular Hemoglobin 33.9 H 28.0-32.0 pg Mean Corpuscular Hemoglobin Concent 34.4 32.0-36.0 g/dL Red Cell Distribution Width 13.4 11.8-14.3 % Platelet Count 161 140-450 10^3/uL Mean Platelet Volume 8.8 6.9-10.8 fL Neutrophils (%) (Auto) 66.2 37.0-80.0 % Lymphocytes (%) (Auto) 21.8 10.0-50.0 % Monocytes (%) (Auto) 8.4 0.0-12.0 % Eosinophils (%) (Auto) 2.5 0.0-7.0 % Basophils (%) (Auto) 1.1 0.0-2.0 % Neutrophils # (Auto) 4.1 1.6-8.6 10 ^3/uL Lymphocytes # (Auto) 1.4 0.4-5.4 10 ^3/uL Monocytes # (Auto) 0.5 0-1.3 10 ^3/uL Eosinophils # (Auto) 0.2 0-0.8 10 ^3/uL Basophils # (Auto) 0.1 0-0.2 10 ^3/uL Nucleated Red Blood Cells 0.1 % Sodium Level 141 136-145 mmol/L Potassium Level 3.4 L 3.5-5.1 mmol/L Chloride Level 104 98-107 mmol/L Carbon Dioxide Level 29 20-31 mmol/L Anion Gap 8 5-15 Blood Urea Nitrogen 18 9-23 mg/dL Creatinine 1.33 H 0.550-1.02 mg/dL Glomerular Filtration Rate Calc 39 >90 mL/min BUN/Creatinine Ratio 13.5 10.0-20.0 Serum Glucose 141 H 74-106 mg/dL Calcium Level 9.8 8.7-10.4 mg/dL Hepatitis B Surface Antigen Negative Negative Hepatitis C Antibody Negative Negative Lactic Acid Level 1.2 0.4-2.0 mmol/L Total Bilirubin 0.8 0.2-1.0 mg/dL Aspartate Amino Transferase (AST) 18 13-40 U/L Alanine Aminotransferase (ALT) 10 7-40 U/L Alkaline Phosphatase 76 46-116 U/L Troponin I High Sensitivity 7 </=34 ng/L Total Protein 6.1 5.7-8.2 g/dL Albumin 4.1 3.2-4.8 g/dL Urine Color Yellow Yellow Urine Clarity Turbid H Clear Urine pH 6.5 5.0-9.0 Urine Specific [place] 1.013 1.001-1.035 Urine Protein Negative Negative Urine Ketones Negative Negative Urine Blood Negative Negative /uL Urine Nitrite Negative Negative Urine Bilirubin Negative Negative Urine Urobilinogen 2 H Negative mg/dL Urine Leukocyte Esterase 1+ Negative /uL Urine RBC 2 0 - 4 /hpf Urine Microscopic WBC 7 H 0-5 /HPF Urine Squamous Epithelial Cells Mod <5 /hpf Urine Bacteria Few H None Seen /hpf Urine Glucose Normal Normal mg/dL Assessment/Plan Plan Patient: Nathan Sterling Age: 89 y/o female CC: Right flank pain HPI: 89-year-old female with a past medical history of depression, pulmonary embolism, GERD, hypertension, hyperlipidemia, congestive heart failure, coronary artery disease, thyroid disease, gout, COPD, and diabetes mellitus presents to the ED with complaints of intermittent right flank and low back pain for approximately one year. The pain is described as intermittent and non-radiating. She denies chest pain, palpitations, dysuria, hematuria, fevers, chills, or recent trauma. Review of Systems: Constitutional: No fevers, chills, or weight loss Cardiac: Denies chest pain or palpitations Respiratory: Denies cough, reports intermittent SOB GI/: Denies dysuria, hematuria, or abdominal pain Musculoskeletal: Reports intermittent low back pain Neuro/Psych: No focal deficits, no acute mental status changes Physical Exam: General: Alert, cooperative, in no acute distress Cardiovascular: Normal S1/S2, no murmurs, rubs, or gallops. NSR on telemetry Respiratory: Lungs clear to auscultation bilaterally, no wheezes, rales, or rhonchi Abdomen: Soft, non-tender, mild right sided CVA tenderness noted Back: No midline tenderness Neuro: Grossly intact Extremities: No edema Assessment: Patient is hemodynamically stable, in normal sinus rhythm on telemetry. Given her history of CHF and CAD, and the chronic nature of her symptoms, recommend transthoracic echocardiogram for cardiac function reassessment. Labs reviewed plan to monitor and maintain hemoglobin and electrolytes within normal limits given her age and comorbidities. Plan: Continue management on telemetry CBC, CMP to monitor hemoglobin and electrolytes Schedule echocardiogram Consider renal ultrasound or repeat CT AB/pel if flank pain worsens or becomes more localized Pain management as needed Plan discussed with: Patient ALEIDA GIRALDO [employer]SH[employer] Sep 16, 2024 14:44
[2024-09-17] VITALS (8 sets, daily range): BP systolic 126–168; BP diastolic 62–85; PULSE 57–72; RESP 17–18; TEMP 97.4–98.6; O2SAT 94–99
--- NOTE | 2024-09-17 13:39 | DVHPN2 ---
Progress Note - Dictate Date Seen: Sep 17, 2024 Medical Necessity Reason Pt with a Central, PICC or Fol: No vital signs Vital Sign Date Time Temp Pulse Resp B/P (MAP) Pulse Ox O2 Delivery O2 Flow Rate FiO2 09/17/24 12:39 97.4 69 17 143/64 (90) 94 97.4 09/17/24 08:00 Room Air* 0 21 Total Intake and Output 09/16/24 09/16/24 09/17/24 15:00 23:00 07:00 Intake Total 300 ml 850 ml 500 ml Balance 300 ml 850 ml 500 ml medications Current Medications Medications Dose Ordered Sig/Lupe Route Start Time Stop Time Status Last Admin Dose Admin Ondansetron HCl 4 mg Q4HP PRN IV 09/13/24 20:00 Nitroglycerin 0.4 mg Q5MINP PRN SL 09/13/24 20:00 Morphine Sulfate 2 mg Q30M PRN IV 09/13/24 20:00 Ceftriaxone Sodium 50 ml @ 100 mls/hr DAILY IV 09/14/24 10:00 09/17/24 08:46 100 MLS/HR Allopurinol 100 mg DAILY PO 09/14/24 10:00 09/17/24 08:46 100 MG Amiodarone HCl 200 mg DAILY PO 09/14/24 10:00 09/17/24 08:46 200 MG Clonidine HCl 0.1 mg Q6HPRN PRN PO 09/13/24 20:00 09/17/24 08:54 0.1 MG Fluoxetine HCl 10 mg DAILY PO 09/14/24 10:00 09/17/24 08:46 10 MG Acetaminophen/ Hydrocodone Bitart 1 tab Q4HPRN PRN PO 09/13/24 20:00 09/17/24 10:03 1 TAB Metoprolol Tartrate 25 mg Q12HR PO 09/13/24 22:00 09/14/24 21:08 25 MG Cyclobenzaprine HCl 5 mg Q8HR PO 09/15/24 22:00 09/17/24 05:13 5 MG objective General Appearance: alert, no distress HEENT: EOMI, PERRLA, normal external inspect of ears, no icterus, no nasal drainage Neck: no carotid bruit, no jugular venous distention (JVD), no lymphadenopathy Chest: normal thorax Respiratory: clear to auscultation, normal air movement Cardiovascular: regular rate and rhythm, no diastolic murmur, no jugular venous distention (JVD), no rub, no systolic murmur Abdominal: soft, no hepatomegaly, no mass, no splenomegaly, no tenderness Genitourinary: grossly normal external Musculoskeletal: no joint tenderness, no swelling Extremities: normal pulses, no calf tenderness, no clubbing, no cyanosis, no edema Skin: no bruising, no jaundice, no rash Neurological: alert, No focal deficit laboratory and microbiology Laboratory Tests 09/15/24 10:38 Test 09/15/24 10:38 Range/Units Serum Glucose 141 H 74-106 mg/dL Problem List 1. Right flank pain Monitor 2. Possible UTI Monitor, IV antibiotics 3. GERD Monitor, PPI 4. CAD Monitor, restart home medications 5. HLD Monitor, DVT prophylaxis, PPI 6. COPD Monitor, as needed albuterol 7. History of PE Monitor, DVT prophylaxis 8. Chronic T12 compression fracture Monitor, CT abdomen pelvis Assessment/Plan Subjective Patient is awake and alert. Objective Patient was admitted for flank pain, most likely flank pain is actually lower lumbar pain related to age-indeterminate T12 compression fracture. Patient has a possible UTI and is given antibiotics. Patient has not been progressing well with physical therapy. Unsure if patient's [id number] is able to care for her while she is max assist. Plan Continue physical therapy. Patient encouraged to participate and use abdominal binder while ambulating. DC planning to SNF. Dietary Evaluation Review Comments: 1) Consider Loperamide and/or soluble fiber supplement to resolve diarrhea 2) Collect HbA1c d/t elevated BG levels 3) Follow-up with orthopedic surgeon and category consultant 4) Encourage optimal PO intake. WIll consider oral nutrition supplements once diarrhea resolves d/t risk of exercerbation d/t sugar alcohols 5) Continue to monitor I&O, labs, and skin integrity Expected Outcomes/Goals: 1) appetite and labs to improve 2) GI symptoms to resolve 3) f/u in 3-5 days Plan discussed with: Patient, Other TENA HEATH NP Sep 17, 2024 13:39
[2024-09-18] VITALS (8 sets, daily range): BP systolic 112–156; BP diastolic 64–83; PULSE 56–79; RESP 16–18; TEMP 97.2–98; O2SAT 93–99
--- NOTE | 2024-09-18 09:57 | DVHSR ---
APPROVED REPORT EXAM: LIMITED Two-dimensional and M-mode echocardiogram with Doppler and color Doppler. Blood Pressure: 153/86 mmHg INDICATION Dyspnea HX of A-Fib/A Flutter RISK FACTORS Height: 5' 3", Weight: 153 DIMENSIONS LVDd4.9 (3.8-5.7cm)LA (2D)4.5 (1.9-4.0cm)Aortic Root2.9 (2.0-3.7cm) LVDs3.3 (2.5-4.0cm)LA (MM) (1.9-4.0cm)Aortic Cusp Exc1.8 (1.5-2.0cm) EF (%) 60.0 (55-70%)Rt. Atrium4.6 (1.9-4.0cm)Asc. Aorta cm IVSd1.2 (0.7-1.1cm)RV (D) (1.8-2.4cm) PWd1.1 (0.7-1.1cm) Mitral Valve MitralMitral Stenosis E wave1.40m/sMV Mean GR.mmHg A wave0.60m/sMV Peak GR.mmHg E/A ratio2.32D MVAcm2 Aortic Valve Aortic ValveAortic Stenosis V10.50m/Rich Mean GR.4mmHg V21.40m/Rich Peak GR.8mmHg LVOT Diameter2.2 (1.8-2.4cm)Doppler AVA1.36cm2 Tricuspid Valve TR Velocity2.90m/s [id number] Other Information Quality : Technically LimitedRhythm : Technically limited study due to body habitus. Conclusion Technically difficult study secondary to poor acoustic windows. Left ventricle: Concentric left ventricular hypertrophy was seen. LVEF was around 60%. There was n o gross wall motion abnormality. Right ventricle was normal-sized with normal systolic function. Significant biatrial enlargement was seen. Aortic valve was not well visualized. There was no aortic insufficiency/stenosis. There was mild-to -moderate tricuspid/mitral regurgitation. Pulmonary valve was not well visualized. Right ventricular systolic pressure was assessed at 45 mm Hg. There was no pericardial effusion.
[2024-09-18] MEDS ORDERED: hydrALAZINE HCL 20 MG/ML VL IV PRN (10:45)
--- NOTE | 2024-09-18 11:25 | DVH ---
EXAM: XY CHEST PORTABLE HISTORY: ARRYTHMIAS COMPARISON: XY CHEST PORTABLE on DOS: 02/23/24, XY CHEST PORTABLE on DOS: 09/23/23, XY CHEST PORTABLE o n DOS: 03/31/23, XY CHEST XRAY 1 VIEW on DOS: 02/19/23, XY CHEST PORTABLE on DOS: 11/30/22 TECHNIQUE: Portable upright AP view of the chest was performed. FINDINGS: No pneumothorax, consolidative infiltrates, or pulmonary edema. There is a calcified granuloma in the right mid lung. There are tracheobronchial calcifications. The aortic arch is calcific. The heart is enlarged. IMPRESSION: 1. Old granulomatous disease of the chest without evidence of acute intrathoracic process. 2. Cardiomegaly and atherosclerotic vascular disease.
--- NOTE | 2024-09-18 11:32 | DVHPN2 ---
Progress Note - Dictate Date Seen: Sep 18, 2024 Medical Necessity Reason Pt with a Central, PICC or Fol: No vital signs Vital Sign Date Time Temp Pulse Resp B/P (MAP) Pulse Ox O2 Delivery O2 Flow Rate FiO2 09/18/24 09:15 63 156/73 09/18/24 09:00 97.5 16 93 97.5 09/17/24 20:00 Room Air* 0 21 Total Intake and Output 09/17/24 09/17/24 09/18/24 15:00 23:00 07:00 Intake Total 50 ml 500 ml 500 ml Balance 50 ml 500 ml 500 ml medications Current Medications Medications Dose Ordered Sig/Lupe Route Start Time Stop Time Status Last Admin Dose Admin Ondansetron HCl 4 mg Q4HP PRN IV 09/13/24 20:00 Nitroglycerin 0.4 mg Q5MINP PRN SL 09/13/24 20:00 Morphine Sulfate 2 mg Q30M PRN IV 09/13/24 20:00 Ceftriaxone Sodium 50 ml @ 100 mls/hr DAILY IV 09/14/24 10:00 09/18/24 09:14 100 MLS/HR Allopurinol 100 mg DAILY PO 09/14/24 10:00 09/18/24 09:14 100 MG Fluoxetine HCl 10 mg DAILY PO 09/14/24 10:00 09/18/24 09:14 10 MG Acetaminophen/ Hydrocodone Bitart 1 tab Q4HPRN PRN PO 09/13/24 20:00 09/18/24 09:15 1 TAB Cyclobenzaprine HCl 5 mg Q8HR PO 09/15/24 22:00 09/18/24 05:22 5 MG Hydralazine HCl 10 mg Q4HPRN PRN IV 09/18/24 10:45 Apixaban 2.5 mg BID PO 09/18/24 22:00 objective General Appearance: alert, no distress HEENT: EOMI, PERRLA, normal external inspect of ears, no icterus, no nasal drainage Neck: no carotid bruit, no jugular venous distention (JVD), no lymphadenopathy Chest: normal thorax Respiratory: clear to auscultation, normal air movement Cardiovascular: regular rate and rhythm, no diastolic murmur, no jugular venous distention (JVD), no rub, no systolic murmur Abdominal: soft, no hepatomegaly, no mass, no splenomegaly, no tenderness Genitourinary: grossly normal external Musculoskeletal: no joint tenderness, no swelling Extremities: normal pulses, no calf tenderness, no clubbing, no cyanosis, no edema Skin: no bruising, no jaundice, no rash Neurological: alert, No focal deficit laboratory and microbiology Laboratory Tests 09/15/24 10:38 Test 09/15/24 10:38 Range/Units Serum Glucose 141 H 74-106 mg/dL Problem List 1. Right flank pain Monitor 2. Possible UTI Monitor, IV antibiotics 3. GERD Monitor, PPI 4. CAD Monitor, restart home medications 5. HLD Monitor, DVT prophylaxis, PPI 6. COPD Monitor, as needed albuterol 7. History of PE Monitor, DVT prophylaxis 8. Chronic T12 compression fracture Monitor, CT abdomen pelvis Assessment/Plan Subjective: Patient is awake and alert. Objective: I spoke with patient at length and also patient's family member Yenifer in regards to plan of care. Patient has been making slow progress with physical therapy. Patient is still incontinent at this time and she is a max assist. Patient's home medications were evaluated by cardiology and restarted. Patient's echocardiogram is pending. Plan: DC planning to [facility] for rehab. Pending cardiac clearance. Plan for discharge in a.m. Dietary Evaluation Review Comments: 1) Consider Loperamide and/or soluble fiber supplement to resolve diarrhea 2) Collect HbA1c d/t elevated BG levels 3) Follow-up with orthopedic surgeon and multiple drum sander 4) Encourage optimal PO intake. WIll consider oral nutrition supplements once diarrhea resolves d/t risk of exercerbation d/t sugar alcohols 5) Continue to monitor I&O, labs, and skin integrity Expected Outcomes/Goals: 1) appetite and labs to improve 2) GI symptoms to resolve 3) f/u in 3-5 days Plan discussed with: Patient, Other TENA HEATH NP Sep 18, 2024 11:32
--- NOTE | 2024-09-18 11:37 | DVHPN2 ---
Progress Note - Dictate Date Seen: Sep 18, 2024 Medical Necessity Reason Pt with a Central, PICC or Fol: No vital signs Vital Sign Date Time Temp Pulse Resp B/P (MAP) Pulse Ox O2 Delivery O2 Flow Rate FiO2 09/18/24 09:15 63 156/73 09/18/24 09:00 97.5 16 93 97.5 09/17/24 20:00 Room Air* 0 21 Total Intake and Output 09/17/24 09/17/24 09/18/24 15:00 23:00 07:00 Intake Total 50 ml 500 ml 500 ml Balance 50 ml 500 ml 500 ml medications Current Medications Medications Dose Ordered Sig/Lupe Route Start Time Stop Time Status Last Admin Dose Admin Ondansetron HCl 4 mg Q4HP PRN IV 09/13/24 20:00 Nitroglycerin 0.4 mg Q5MINP PRN SL 09/13/24 20:00 Morphine Sulfate 2 mg Q30M PRN IV 09/13/24 20:00 Ceftriaxone Sodium 50 ml @ 100 mls/hr DAILY IV 09/14/24 10:00 09/18/24 09:14 100 MLS/HR Allopurinol 100 mg DAILY PO 09/14/24 10:00 09/18/24 09:14 100 MG Fluoxetine HCl 10 mg DAILY PO 09/14/24 10:00 09/18/24 09:14 10 MG Acetaminophen/ Hydrocodone Bitart 1 tab Q4HPRN PRN PO 09/13/24 20:00 09/18/24 09:15 1 TAB Cyclobenzaprine HCl 5 mg Q8HR PO 09/15/24 22:00 09/18/24 05:22 5 MG Hydralazine HCl 10 mg Q4HPRN PRN IV 09/18/24 10:45 Apixaban 2.5 mg BID PO 09/18/24 22:00 laboratory and microbiology Laboratory Tests 09/15/24 10:38 Test 09/15/24 10:38 Range/Units Serum Glucose 141 H 74-106 mg/dL Assessment/Plan Patient is a 89-year-old female who presented originally for right leg pain. Cardiology was called for cardiac aspects of care. Patient is known to have history of atrial fibrillation and bradycardia. She is supposed to be off AV polly blocking agents and to be on anticoagulation (long-term). Of course, there is history of pulmonary emboli from before. Elderly female lying comfortably flat in bed. No JVD. Mucosa is pink and wet. Lungs: Scattered rhonchi. Not using accessory muscles of breathing. Cardiac: Irregular, no thrill. Abdomen is soft and nondistended. No gross hepatomegaly. Dorsalis pedis is 2+ bilateral, s/p hip surgery Past medical history: diabetes mellitus, GERD, COPD, morbid obesity, hypertension, hyperlipidemia, hypothyroidism, gout, neuropathy, history of pulmonary emboli, coronary artery disease and status post PTCA in 2019, persistent atrial fibrillation (off antiarrhythmics), COPD, depression and diastolic heart failure. There is surgical history of appendectomy/cholecystectomy/hysterectomy/ectopic . She did have ORIF of the right hip. She has had reduction of dislocated hip prosthesis. She does have chronic respiratory failure and is on O2 supplement as outpatient. Does have history of bradycardia/pauses as outpatient and has been off AV polly blocking agents. Echocardiogram 12/2021: Left ventricle was normal in size with normal systolic function. LVEF around 54%. There was no gross wall motion abnormality. Right ventricle dilated with reduced systolic function. Left atrium was moderately dilated. Right atrium was moderate to severely dilated. Aortic valve was trileaflet. No aortic insufficiency /stenosis. Both mitral and tricuspid valves revealed mild to moderate regurgitation. There is no pulmonary insufficiency. RVSP 60mmhg, IVC was normal size with reduced respiratory variation. Echocardiogram of November 27, 2022 revealed ejection fraction of 65%, biatrial enlargement, severe MR, moderate TR/PI and dilated RV. Echocardiogram of September 2023 had revealed mild concentric left ventricular hypertrophy, hyperdynamic left ventricle, ejection fraction of 76%, biatrial enlargement, [id number] MR/TR and right ventricular systolic pressure of 60 mm Hg. Echocardiogram of January 06, 2024 had revealed ejection fraction of 60-65%, biatrial enlargement, moderate mitral annular calcification, [id number] MR/TR and right ventricular systolic pressure 42 mm Hg Nuclear stress test of January 2020 revealed no ischemia, ejection fraction of 51%. Left heart catheterization of February 23, 2024 had revealed nonobstructive coronary artery disease, patent stent in proximal to mid LAD, ejection fraction of 60% and EDP of 12 mm Hg Creatinine: 1.4 - 1.33 Potassium: 3.2 - 3.4 EKG revealed atrial fibrillation with nonspecific ST-T changes Tele reveals atrial fibrillation with occasional pause up to 3.2 seconds Echocardiogram reported: Technically difficult study secondary to poor acoustic windows. Left ventricle: Concentric left ventricular hypertrophy was seen. LVEF was around 60%. There was no gross wall motion abnormality. Right ventricle was normal-sized with normal systolic function. Significant biatrial enlargement was seen. Aortic valve was not well visualized. There was no aortic insufficiency/stenosis. There was [id number] tricuspid/mitral regurgitation. Pulmonary valve was not well visualized. Right ventricular systolic pressure was assessed at 45 mm Hg. There was no pericardial effusion. Assessment: Patient is a 89-year-old female who presented to the hospital with right flank pain. There is question about UTI. Cardiology is involved for cardiac aspects of care. Cardiac-lamar, the patient has not been symptomatic. Patient is known to our practice from outside and does have history of persistent atrial fibrillation and has been off of any antiarrhythmics. She has been kept on anticoagulation (Eliquis as outpatient). Patient does have history of bradycardia and did have some pauses as outpatient. She is supposed to be off any AV polly blocking agents. Atrial fibrillation with slow to moderate ventricular response Occasional pause (had been kept on beta yunior/clonidine) Chronic diastolic CHF COPD History of pulmonary emboli Atrial fibrillation, persistent Diabetes mellitus Hypertension Hyperlipidemia Gout Hypothyroidism Cardiac suggestion: Manage on telemetry Follow-up electrolytes and kidney function test and correct abnormalities. Keep potassium above 4 magnesium above 2 Full anticoagulation is advised (patient on Eliquis) Stop Amiodarone Stop Beta blockers and clonidine No AV polly blocking agents. Request for chest x-ray Further evaluation and management depends on the above and clinical course A total of 55 minutes was spent reviewing the patient record, examining the patient, making a diagnostic and therapeutic plan, discussing this plan with medical personnel, following up on diagnostic studies and following the patient for clinical stability excluding any and all procedures. At least 50% of this time was spent in direct, [id number] contact. Thank you for allowing me to participate in this patient's care. Further recommendations will depend on patient's clinical course. Please do not hesitate to contact me if you have any questions or concerns. This medical document was created using electronic medical record system with [employer] dictation system. Although this document has been carefully reviewed, there may still be some phonetic and typographical errors. These areas are purely typographical due to the imperfection of the software programs, and do not reflect any compromise in the patient's medical care. Dietary Evaluation Review Comments: 1) Consider Loperamide and/or soluble fiber supplement to resolve diarrhea 2) Collect HbA1c d/t elevated BG levels 3) Follow-up with orthopedic surgeon and customer experience strategist 4) Encourage optimal PO intake. WIll consider oral nutrition supplements once diarrhea resolves d/t risk of exercerbation d/t sugar alcohols 5) Continue to monitor I&O, labs, and skin integrity Expected Outcomes/Goals: 1) appetite and labs to improve 2) GI symptoms to resolve 3) f/u in 3-5 days Plan discussed with: Patient, Other (nurse) JOANN CAMPA MD Sep 18, 2024 11:37
[2024-09-18 12:24] LABS: Basophils # (auto) 0.1 10 ^3/uL (0-0.2); Eosinophils # (auto) 0.2 10 ^3/uL (0-0.8); Eosinophils % (auto) 2.2 % (0.0-7.0); Hematocrit 34.3 % (36.0-46.0); Hemoglobin 11.9 g/dL (12.2-16.2); Lymphocytes # (auto) 1.3 10 ^3/uL (0.4-5.4); Lymphocytes % (auto) 18.7 % (10.0-50.0); Mean Corpuscular Hemoglobin 34.3 pg (28.0-32.0); Mean Corpuscular Hgb Conc. 34.7 g/dL (32.0-36.0); Mean Corpuscular Volume 98.9 fL (80.0-100.0); Monocytes # (auto) 0.6 10 ^3/uL (0-1.3); Monocytes % (auto) 8.7 % (0.0-12.0); Neutrophils # (auto) 4.8 10 ^3/uL (1.6-8.6); Neutrophils % (auto) 69.4 % (37.0-80.0); Nucleated Red Blood Cells % 0.1 %; Platelet Count (auto) 157 10^3/uL (140-450); Red Blood Cells 3.47 10^6/uL (4.0-5.20); Red Cell Distribution Width 13.5 % (11.8-14.3); White Blood Cell 6.9 10^3/uL (4.4-10.8)
[2024-09-18 12:35] LABS: Anion Gap 8 (5-15); Carbon Dioxide 29 mmol/L (20-31); Chloride 105 mmol/L (98-107); Sodium 142 mmol/L (136-145)
[2024-09-18 12:36] LABS: Calcium 9.6 mg/dL (8.7-10.4); Potassium 3.2 mmol/L (3.5-5.1)
[2024-09-18 12:41] LABS: BUN/Creatinine Ratio 14.2 (10.0-20.0); Blood Urea Nitrogen 17 mg/dL (9-23); Magnesium 2.1 mg/dL (1.6-2.6)
[2024-09-18 12:43] LABS: Phosphorus 3.5 mg/dL (2.4-5.1)
[2024-09-18 12:47] LABS: Glucose 111 mg/dL (74-106)
[2024-09-18] MEDS: PANTOPRAZOLE 40 MG TAB PO SCH (15:09)
[2024-09-18] MEDS: DOCUSATE SOD 100 MG CAP PO SCH (20:58)
[2024-09-18] MEDS: APIXABAN 2.5 MG TAB PO SCH (20:58)
[2024-09-18] MEDS: ASCORBIC ACID 500 MG TAB PO SCH (20:58)
[2024-09-18] MEDS: GABAPENTIN 300 MG CAP PO SCH (20:58)
[2024-09-19] VITALS (8 sets, daily range): BP systolic 108–176; BP diastolic 50–72; PULSE 53–64; RESP 15–17; TEMP 97.1–98.5; O2SAT 93–97
[2024-09-19] MEDS: hydrALAZINE HCL 10 MG TAB PO PRN (04:10)
[2024-09-19] MEDS: LEVOTHYROXINE SODIUM 25 MCG TAB PO SCH (06:25)
--- NOTE | 2024-09-19 07:07 | DVHPN2 ---
Progress Note - Dictate Date Seen: Sep 19, 2024 Medical Necessity Reason Pt with a Central, PICC or Fol: No vital signs Vital Sign Date Time Temp Pulse Resp B/P (MAP) Pulse Ox O2 Delivery O2 Flow Rate FiO2 09/19/24 06:53 142/59 (86) 09/19/24 05:00 97.9 55 17 97 97.9 09/18/24 20:00 Room Air* 0 21 Total Intake and Output 09/18/24 09/18/24 09/19/24 15:00 23:00 07:00 Intake Total 600 ml 170 ml Balance 600 ml 170 ml medications Current Medications Medications Dose Ordered Sig/Lupe Route Start Time Stop Time Status Last Admin Dose Admin Ondansetron HCl 4 mg Q4HP PRN IV 09/13/24 20:00 Nitroglycerin 0.4 mg Q5MINP PRN SL 09/13/24 20:00 Morphine Sulfate 2 mg Q30M PRN IV 09/13/24 20:00 Ceftriaxone Sodium 50 ml @ 100 mls/hr DAILY IV 09/14/24 10:00 09/18/24 09:14 100 MLS/HR Allopurinol 100 mg DAILY PO 09/14/24 10:00 09/18/24 09:14 100 MG Fluoxetine HCl 10 mg DAILY PO 09/14/24 10:00 09/18/24 09:14 10 MG Acetaminophen/ Hydrocodone Bitart 1 tab Q4HPRN PRN PO 09/13/24 20:00 09/19/24 01:13 1 TAB Cyclobenzaprine HCl 5 mg Q8HR PO 09/15/24 22:00 09/19/24 06:25 5 MG Hydralazine HCl 10 mg Q4HPRN PRN IV 09/18/24 10:45 Apixaban 2.5 mg BID PO 09/18/24 22:00 09/18/24 20:58 2.5 MG Ascorbic Acid 500 mg BID PO 09/18/24 22:00 09/18/24 20:58 500 MG Docusate Sodium 100 mg BID PO 09/18/24 22:00 09/18/24 20:58 100 MG Furosemide 40 mg DAILY PO 09/19/24 10:00 Gabapentin 300 mg HS PO 09/18/24 22:00 09/18/24 20:58 300 MG Hydralazine HCl 10 mg Q6HR PRN PO 09/18/24 11:30 09/19/24 04:10 10 MG Multivitamins 1 tab DAILY PO 09/19/24 10:00 Pravastatin Sodium 40 mg DAILY PO 09/19/24 10:00 Cholecalciferol 2,000 unit DAILY PO 09/19/24 10:00 Levothyroxine Sodium 75 mcg QAM PO 09/19/24 07:00 09/19/24 06:25 75 MCG Potassium Chloride 20 meq DAILY PO 09/19/24 10:00 Pantoprazole Sodium 40 mg DAILY@0600 PO 09/18/24 11:30 09/19/24 06:25 40 MG laboratory and microbiology Laboratory Tests 09/18/24 12:04 Test 09/18/24 12:04 Range/Units Serum Glucose 111 H 74-106 mg/dL Assessment/Plan Patient is a 89-year-old female who presented originally for right leg pain. Cardiology was called for cardiac aspects of care. Patient is known to have history of atrial fibrillation and bradycardia. She is supposed to be off AV polly blocking agents and to be on anticoagulation (long-term). Of course, there is history of pulmonary emboli from before. Elderly female lying comfortably flat in bed. No JVD. Mucosa is pink and wet. Lungs: Scattered rhonchi. Not using accessory muscles of breathing. Cardiac: Irregular, no thrill. Abdomen is soft and nondistended. No gross hepatomegaly. Dorsalis pedis is 2+ bilateral, s/p hip surgery Past medical history: diabetes mellitus, GERD, COPD, morbid obesity, hypertension, hyperlipidemia, hypothyroidism, gout, neuropathy, Diverticulosis, Hiatal Hernia, Compression fracture of spine, history of pulmonary emboli, coronary artery disease and status post PTCA in 2019, persistent atrial fibrillation (off antiarrhythmics), COPD, depression and diastolic heart failure. There is surgical history of appendectomy/cholecystectomy/hysterectomy/ectopic . She did have ORIF of the right hip. She has had reduction of dislocated hip prosthesis. She does have chronic respiratory failure and is on O2 supplement as outpatient. Does have history of bradycardia/pauses as outpatient and has been off AV polly blocking agents. Echocardiogram 12/2021: Left ventricle was normal in size with normal systolic function. LVEF around 54%. There was no gross wall motion abnormality. Right ventricle dilated with reduced systolic function. Left atrium was moderately dilated. Right atrium was moderate to severely dilated. Aortic valve was trileaflet. No aortic insufficiency /stenosis. Both mitral and tricuspid valves revealed mild to moderate regurgitation. There is no pulmonary insufficiency. RVSP 60mmhg, IVC was normal size with reduced respiratory variation. Echocardiogram of November 27, 2022 revealed ejection fraction of 65%, biatrial enlargement, severe MR, moderate TR/PI and dilated RV. Echocardiogram of September 2023 had revealed mild concentric left ventricular hypertrophy, hyperdynamic left ventricle, ejection fraction of 76%, biatrial enlargement, [id number] MR/TR and right ventricular systolic pressure of 60 mm Hg. Echocardiogram of January 06, 2024 had revealed ejection fraction of 60-65%, biatrial enlargement, moderate mitral annular calcification, [id number] MR/TR and right ventricular systolic pressure 42 mm Hg Nuclear stress test of January 2020 revealed no ischemia, ejection fraction of 51%. Left heart catheterization of February 23, 2024 had revealed nonobstructive coronary artery disease, patent stent in proximal to mid LAD, ejection fraction of 60% and EDP of 12 mm Hg Creatinine: 1.4 - 1.33 - 1.20 Potassium: 3.2 - 3.4 - 3.2 Trop (high sensitive): 7 Chest x-ray reported: IMPRESSION: 1. Old granulomatous disease of the chest without evidence of acute intrathoracic process. 2. Cardiomegaly and atherosclerotic vascular disease. Lumbar spine x-ray reported: Wedge-shaped compression fracture of T12 - L2 age indeterminate. Narrowed intervertebral joint space from T12 -L3 Levoscoliosis of the lumbar spine. Bipolar right hip prosthesis. Internal fixation screw in the left femur. Cervical spine CT reported: IMPRESSION: No evidence of acute cervical spine fracture or traumatic malalignment. Multilevel degenerative changes with calcified posterior disc osteophyte complex at C2-C3 through C5-C6 causing moderate spinal canal stenosis. Abdomen/pelvis CT scan reported: IMPRESSION: 1. There is no acute process in the abdomen and pelvis. 2. Sigmoid diverticulosis without evidence of acute diverticulitis. 3. Moderate size hiatal hernia. 4. Chronic appearing compression deformity of the T12 vertebral body. EKG revealed atrial fibrillation with nonspecific ST-T changes Tele reveals atrial fibrillation with occasional pause up to 3.2 seconds Echocardiogram reported: Technically difficult study secondary to poor acoustic windows. Left ventricle: Concentric left ventricular hypertrophy was seen. LVEF was around 60%. There was no gross wall motion abnormality. Right ventricle was normal-sized with normal systolic function. Significant biatrial enlargement was seen. Aortic valve was not well visualized. There was no aortic insufficiency/stenosis. There was [id number] tricuspid/mitral regurgitation. Pulmonary valve was not well visualized. Right ventricular systolic pressure was assessed at 45 mm Hg. There was no pericardial effusion. Assessment: Patient is a 89-year-old female who presented to the hospital with right flank pain. There is question about UTI. Cardiology is involved for cardiac aspects of care. Cardiac-lamar, the patient has not been symptomatic. Patient is known to our practice from outside and does have history of persistent atrial fibrillation and has been off of any antiarrhythmics. She has been kept on anticoagulation (Eliquis as outpatient). Patient does have history of bradycardia and did have some pauses as outpatient. She is supposed to be off any AV polly blocking agents. Atrial fibrillation with slow to moderate ventricular response Occasional pause (had been kept on beta yunior/clonidine) Chronic diastolic CHF COPD History of pulmonary emboli Atrial fibrillation, persistent Diabetes mellitus Hypertension Hyperlipidemia Gout Hypothyroidism Hiatal Hernia Diverticulosis Cardiac suggestion: Manage on telemetry Follow-up electrolytes and kidney function test and correct abnormalities. Keep potassium above 4 magnesium above 2 Full anticoagulation is advised (patient on Eliquis) Off Amiodarone No AV polly blocking agents. Add Amlodipine for better control of hypertension Further evaluation and management depends on the above and clinical course A total of 55 minutes was spent reviewing the patient record, examining the patient, making a diagnostic and therapeutic plan, discussing this plan with medical personnel, following up on diagnostic studies and following the patient for clinical stability excluding any and all procedures. At least 50% of this time was spent in direct, [id number] contact. Thank you for allowing me to participate in this patient's care. Further recommendations will depend on patient's clinical course. Please do not hesitate to contact me if you have any questions or concerns. This medical document was created using electronic medical record system with [employer] dictation system. Although this document has been carefully reviewed, there may still be some phonetic and typographical errors. These areas are purely typographical due to the imperfection of the software programs, and do not reflect any compromise in the patient's medical care. Dietary Evaluation Review Comments: 1) Consider Loperamide and/or soluble fiber supplement to resolve diarrhea 2) Collect HbA1c d/t elevated BG levels 3) Follow-up with orthopedic surgeon and sales and business development manager 4) Encourage optimal PO intake. WIll consider oral nutrition supplements once diarrhea resolves d/t risk of exercerbation d/t sugar alcohols 5) Continue to monitor I&O, labs, and skin integrity Expected Outcomes/Goals: 1) appetite and labs to improve 2) GI symptoms to resolve 3) f/u in 3-5 days Plan discussed with: Patient, Other (nurse) JOANN CAMPA MD Sep 19, 2024 07:07
[2024-09-19] MEDS: CHOLECALCIFEROL (VITD3) 1,000UNIT=25mCg TAB PO SCH (09:11)
[2024-09-19] MEDS: MULTIPLE VITAMIN TAB PO SCH (09:11)
[2024-09-19] MEDS: FUROSEMIDE 40 MG TAB PO SCH (09:14)
[2024-09-19] MEDS: POTASSIUM CHL 20 Meq TABLET PO SCH (09:15)
[2024-09-19] MEDS: PRAVASTATIN SODIUM 20 MG TAB PO SCH (09:15)
[2024-09-19] MEDS: amLODIPine BESYLATE 5 MG TAB PO SCH (14:47)
[2024-09-19] MEDS ORDERED: AML5T PO (15:41)
--- NOTE | 2024-09-19 15:42 | DVHDS2 ---
Discharge Summary Date of Admission Sep 13, 2024 at 19:49 Date of Discharge: Sep 19, 2024 Labs/Diagnostic Data: Laboratory Results Test 09/18/24 12:04 09/14/24 05:25 09/13/24 14:18 09/13/24 13:45 White Blood Count 6.9 10^3/uL (4.4-10.8) Red Blood Count 3.47 10^6/uL (4.0-5.20) Hemoglobin 11.9 g/dL (12.2-16.2) Hematocrit 34.3 % (36.0-46.0) Mean Corpuscular Volume 98.9 fL (80.0-100.0) Mean Corpuscular Hemoglobin 34.3 pg (28.0-32.0) Mean Corpuscular Hemoglobin Concent 34.7 g/dL (32.0-36.0) Red Cell Distribution Width 13.5 % (11.8-14.3) Platelet Count 157 10^3/uL (140-450) Mean Platelet Volume 8.6 fL (6.9-10.8) Neutrophils (%) (Auto) 69.4 % (37.0-80.0) Lymphocytes (%) (Auto) 18.7 % (10.0-50.0) Monocytes (%) (Auto) 8.7 % (0.0-12.0) Eosinophils (%) (Auto) 2.2 % (0.0-7.0) Basophils (%) (Auto) 1.0 % (0.0-2.0) Neutrophils # (Auto) 4.8 10 ^3/uL (1.6-8.6) Lymphocytes # (Auto) 1.3 10 ^3/uL (0.4-5.4) Monocytes # (Auto) 0.6 10 ^3/uL (0-1.3) Eosinophils # (Auto) 0.2 10 ^3/uL (0-0.8) Basophils # (Auto) 0.1 10 ^3/uL (0-0.2) Nucleated Red Blood Cells 0.1 % Sodium Level 142 mmol/L (136-145) Potassium Level 3.2 mmol/L (3.5-5.1) Chloride Level 105 mmol/L (98-107) Carbon Dioxide Level 29 mmol/L (20-31) Anion Gap 8 (5-15) Blood Urea Nitrogen 17 mg/dL (9-23) Creatinine 1.20 mg/dL (0.550-1.02) Glomerular Filtration Rate Calc 44 mL/min (>90) BUN/Creatinine Ratio 14.2 (10.0-20.0) Serum Glucose 111 mg/dL (74-106) Calcium Level 9.6 mg/dL (8.7-10.4) Phosphorus Level 3.5 mg/dL (2.4-5.1) Magnesium Level 2.1 mg/dL (1.6-2.6) Hepatitis B Surface Antigen Negative (Negative) Hepatitis C Antibody Negative (Negative) Lactic Acid Level 1.2 mmol/L (0.4-2.0) Total Bilirubin 0.8 mg/dL (0.2-1.0) Aspartate Amino Transferase (AST) 18 U/L (13-40) Alanine Aminotransferase (ALT) 10 U/L (7-40) Alkaline Phosphatase 76 U/L (46-116) Troponin I High Sensitivity 7 ng/L (</=34) Total Protein 6.1 g/dL (5.7-8.2) Albumin 4.1 g/dL (3.2-4.8) Urine Color Yellow (Yellow) Urine Clarity Turbid (Clear) Urine pH 6.5 (5.0-9.0) Urine Specific [place] 1.013 (1.001-1.035) Urine Protein Negative (Negative) Urine Ketones Negative (Negative) Urine Blood Negative /uL (Negative) Urine Nitrite Negative (Negative) Urine Bilirubin Negative (Negative) Urine Urobilinogen 2 mg/dL (Negative) Urine Leukocyte Esterase 1+ /uL (Negative) Urine RBC 2 /hpf (0 - 4) Urine Microscopic WBC 7 /HPF (0-5) Urine Squamous Epithelial Cells Mod /hpf (<5) Urine Bacteria Few /hpf (None Seen) Urine Glucose Normal mg/dL (Normal) Other Laboratory Tests 09/18/24 12:04 Brief Hx & Hospital Course: Patient is a 89-year-old female with a medical history of depression, pulmonary embolism, GERD, HTN, HLD, UTI, CHF, CAD, thyroid, gout, COPD, and DM presents to the ED for flank pain. Patient states she is experienced this intermittent right flank pain with back pain for the past year. Patient denies any other symptoms or modifying factors at this time. While in the emergency department the patient was evaluated by the provider, As per provider: Labs, vital signs, and imagining monitored. Patient was admitted on 09/13/2024 for intractable back pain related to T-spine compression, T12 compression fracture. Patient was seen by orthopedic spinal surgeon. Patient worked with physical therapy. She was in a severe amount of pain. TLSO brace was ordered as well as abdominal binder. Patient felt more secure in the TLSO brace. Patient lives with her sister and [id number]. They were unable to care for her at this time due to patient being a max assist due to intractable pain. Patient was started on Flexeril as recommended by orthopedic spinal surgeon. She will continue rehab at [facility] under the care of Dr. Yan with physical therapy. The patient received proper medical treatment and medications. Vital signs, Imaging and Laboratory Work was monitored daily. All consults recommendations were followed as provided. There were no complaints or new complaints upon discharge, all questions and concerns were answered. Patient was advised to return to the ER or call 911 if any headaches, dizziness, shortness of breath, chest pain, bleeding, fevers, or worsening of medical condition. Patient/Family was counseled about treatment plan, medications, possible side effects, patient verbalized understanding. All questions were answered to the best of my ability. The patient symptoms improved and they are okay to be DC. Condition at Discharge: Good Final Diagnosis/Problems List Right flank pain Possible UTI GERD CAD HLD COPD History of PE Chronic T12 compression fracture Discharge Disposition: Half-Way Facility Discharge Instruct/Medications Diet: See Comment Activity: No Restrictions, As Tolerated Follow Up/Referral: PCP [facility] 1 WEEK Discharge Statement: "Patient was advised to return to the ER or call 911 if any headaches, dizziness, shortness of breath, chest pain, abdominal pain, bleeding, fevers, or worsening of medical condition. Patient was counseled about treatment plan, medications, possible side effects, patientverbalized understanding. All questions were answered to the best of my ability. This discharge took greater then 30 minutes in planning, reviewing documentation, counseling the patient, and discussing with other team members." ASSESSMENT ASSESSMENT Assessment T12 COMPRESSION FX POSS UTI- COMPLETED ABX COURSE TENA HEATH NP Sep 19, 2024 15:42
== END 2024-09-19 20:25 | DRG 690 ==
LOC: ER 12:56 → OVERFLOW 19:49 → TELE-CENTR 22:15
PROVIDERS: ADMIT Nurse Practitioner; ATTEND Nurse Practitioner
DX: N30.00 Acute cystitis without hematuria (principal); I48.19 Other persistent atrial fibrillation; M48.54XA Collapsed vertebra, not elsewhere classified, thoracic region, initial encounter for fracture; J96.10 Chronic respiratory failure, unspecified whether with hypoxia or hypercapnia; I50.32 Chronic diastolic (congestive) heart failure; Z98.61 Coronary angioplasty status; I25.10 Atherosclerotic heart disease of native coronary artery without angina pectoris; K21.9 Gastro-esophageal reflux disease without esophagitis; J44.9 Chronic obstructive pulmonary disease, unspecified; E78.5 Hyperlipidemia, unspecified; E03.9 Hypothyroidism, unspecified; K57.30 Diverticulosis of large intestine without perforation or abscess without bleeding; M10.9 Gout, unspecified; M54.9 Dorsalgia, unspecified; I34.0 Nonrheumatic mitral (valve) insufficiency; M48.02 Spinal stenosis, cervical region; Z96.641 Presence of right artificial hip joint; I11.0 Hypertensive heart disease with heart failure; M25.78 Osteophyte, vertebrae; M41.9 Scoliosis, unspecified; E66.01 Morbid (severe) obesity due to excess calories; F32.A Depression, unspecified; E11.40 Type 2 diabetes mellitus with diabetic neuropathy, unspecified; Z86.711 Personal history of pulmonary embolism; Z83.3 Family history of diabetes mellitus; Z90.710 Acquired absence of both cervix and uterus; Z90.49 Acquired absence of other specified parts of digestive tract; Z88.2 Allergy status to sulfonamides; Z79.899 Other long term (current) drug therapy; Z79.01 Long term (current) use of anticoagulants; Z79.891 Long term (current) use of opiate analgesic; Z79.1 Long term (current) use of non-steroidal anti-inflammatories (NSAID); Z86.73 Personal history of transient ischemic attack (TIA), and cerebral infarction without residual deficits; Z82.49 Family history of ischemic heart disease and other diseases of the circulatory system; Z82.0 Family history of epilepsy and other diseases of the nervous system; Z82.3 Family history of stroke
CPT/HCPCS: 36415; 71045; 72110; 72125; 74176; 80048; 80053; 81001; 83605; 83735; 84100; 84484; 85025; 86803; 87081; 87340; 93005; 93306; 96372; 97110; 97116; 97163; 97530; G0378; J0696

== ENCOUNTER 2025-01-14 15:51 | Inpatient (IN) | payer OTHER, MEDICAID ==
[~2025-01-14] VITALS: Ht 157.5 cm; Wt 66.4 kg
[~2025-01-14 15:51] MED LIST changes: -AMIO200T33 PO; +AML5T PO; -CLON0.1T PO; +HYDR-2792 PO; -ONDA-155 PO
[2025-01-14] MEDS: HYDROcodone-ACET 10/325MG TAB PO ONE (16:15)
[2025-01-14 16:48] LABS: Hematocrit 39.1 % (36.0-46.0); Hemoglobin 13.6 g/dL (12.2-16.2); Mean Corpuscular Hemoglobin 32.8 pg (28.0-32.0); Mean Corpuscular Volume 94.7 fL (80.0-100.0); Nucleated Red Blood Cells % 0.1 %
[2025-01-14 17:02] LABS: Albumin 3.8 g/dL (3.2-4.8); Anion Gap 8 (5-15); BUN/Creatinine Ratio 21.6 (10.0-20.0); Blood Urea Nitrogen 22 mg/dL (9-23); Calcium 9.1 mg/dL (8.7-10.4); Carbon Dioxide 30 mmol/L (20-31); Chloride 106 mmol/L (98-107); Lipase 44 U/L (12-53); Sodium 144 mmol/L (136-145)
[2025-01-14 17:03] LABS: Alanine Aminotransferase < 9 U/L (7-40); Alkaline Phosphatase 123 U/L (46-116); Bilirubin, Total 0.7 mg/dL (0.2-1.0); Glucose 127 mg/dL (74-106); Potassium 3.4 mmol/L (3.5-5.1); Total Protein 5.7 g/dL (5.7-8.2)
--- NOTE | 2025-01-14 17:21 | DVH ---
CT LS SPINE WO CONTRAST Date: 01/14/2025 04:30 PM History: Back pain Comparison: XY LUMBAR SPINE 4+ VIEW on DOS: 09/14/24, CT CERVICAL WITHOUT CONTRAST on DOS: 09/14/24, XY P KILLIAN AP on DOS: 02/19/23 TECHNIQUE: Multiple axial CT images of the lumbosacral spine were obtained using bone algorithm. Axial and coron al reformatting was done. Bone and soft tissue windows were reviewed. Radiation Dose Information: CT Dose: CTDI volume is 29.26 mGy. Dose-length product is 1041.21 mGy*cm FINDINGS: No CT evidence of definite acute fracture, spinal dislocation, or significant appearing acute subluxa tion is seen. The visualized paraspinal soft tissues are grossly unremarkable. T12-L1 There is no evidence of central spinal canal or neuroforaminal stenosis. Compression fracture T12 with degenerative disc changes at T12-L1 and mild compression superior and inferior endplate of L 1. L1-L2 There is no evidence of central spinal canal or neuroforaminal stenosis. Degenerative disc handy ges at L1-L2. L2-L3 bony fusion of L2-3. Stippled appearance to the cortex of L3 suggesting osseous hemangioma. L3-L4 There is no evidence of central spinal canal or neuroforaminal stenosis. Degenerative disc handy ges at L3-4. Findings suggesting central spinal canal stenosis diffuse annular bulging of the disc w hich is partially calcified. Hypertrophic arthritic changes of the posterior articular facets and hyp ertrophy of the ligamentum flavum. L4-L5 hypertrophy of the of the posterior articular facets and hypertrophy of the ligamentum flavum b ilaterally with trefoil configuration to the thecal sac suggesting mild spinal stenosis. L5-S1 There is no evidence of central spinal canal or neuroforaminal stenosis. Mild centrally bulging disc at L5-S1. No central spinal canal stenosis. IMPRESSION: 1. No definite CT evidence of acute fracture or dislocation of the bony lumbar spine. 2. Compression of T12 biconcave depression of L1. 3. Bony fusion of L2-3 4. Degenerative disc changes at L3-4. 5. Possible osseous hemangioma L2-3. 6. Nonemergent MRI may be helpful for further evaluation. All CT scans at this medical facility are performed using dose modulation techniques as appropriate to a performed exam including the following: Automated exposure control was utilized; adjustment of t he MA and/or KV according to patient size; and use of iterative reconstruction technique. HS:Y
--- NOTE | 2025-01-14 18:12 | ED.PDOC ---
Back pain HPI HPI Comments Patient is a obese 89-year-old female who was brought in by EMS today due to complaints of significant low back pain concerns for the past week. Patient states that last night it became significant and has continued into today. Patient states she does have a history of low back pain concerns, but does not have a doctor the see follows up with nor does she seem to have any proper assistance at home. Patient does have pain medication that was prescribed from an unknown doctor, but states it is ineffective in managing her low back pain concerns. Vital signs were stable. Chief Complaint: Back Pain Time Seen by MD: 15:54 Primary Care Provider: OVI Reviewed Notes: Nurses Notes, Police Lieutenant Notes Allergies: Coded Allergies: Sulfa Antibiotics (Verified Allergy, Unknown, 02/18/24) Home Meds Active Scripts Amlodipine Besylate (NORVASC TABLET) 5 Mg Tb, 5 MG PO DAILY for 30 Days, #30 TAB Prov:TENA HEATH Hawa [employer]ER PRINTING OPERATOR 09/19/24 Apixaban Base (ELIQUIS) 2.5 Mg Tab, 2.5 MG PO BID for 30 Days, #60 TAB Prov:TENA HEATH Hawa [employer] PRINTING OPERATOR 02/13/23 Furosemide (Furosemide) 40 Mg Tab, 40 MG PO DAILY for 30 Days, #30 TAB Prov:TENA HEATH Hawa [employer] PRINTING OPERATOR 11/30/22 Metoprolol Tartrate (Lopressor) 25 Mg Tb, 25 MG PO Q12HR for 30 Days, #60 TAB 0 Refills Prov:TENA HEATH Hawa [employer] PRINTING OPERATOR 11/30/22 Albuterol Sulfate (Albuterol Sulfate) 0.083 % Neb, 1 VIAL NEB UD, #50 VIAL Prov:Gina Meade 12/04/21 Reported Medications Hydralazine Hcl (Hydralazine Hcl) 10 Mg Tab, 10 MG PO Q6HR PRN for SBP>160 for 30 Days, MG 09/14/24 Hydrocodone-Acetaminophen (Hydrocodone Bitartrate/AC 5-325 mg) 1 Tab Tab, 1 TAB PO Q4HPRN PRN for MODERATE TO SEVERE PAIN 4-10, TAB 02/18/24 Cholecalciferol (VITAMIN D3) 2,000 Unit Tab, 1 TAB PO DAILY, #30 TAB 5 Refills 02/18/24 Potassium Chloride (Pokonza) 10 Meq Pow, 20 MEQ PO DAILY for SUPPLEMENT, POW 02/18/24 Fluoxetine Hcl (Fluoxetine Hcl) 10 Mg Cap, 10 MG PO DAILY for depression, MG 02/18/24 Pantoprazole Sodium Sesquihydr (Protonix) 40 Mg Tab, 40 MG PO BEFORE BREAKFAST, TAB 09/24/23 Levothyroxine Sodium (Levothyroxine Sodium) 75 Mcg Tab, 75 MCG PO QAM 09/24/23 Tramadol Hcl (Tramadol Hcl) 50 Mg Tab, 50 MG PO BIDP PRN for PAIN SCALE 1 THRU 6, MG 09/23/23 Multiple Vitamin (Multivitamins) Tab, 1 TAB PO DAILY, #90 TAB 3 Refills 09/23/23 Ascorbic Acid (VITAMIN C TABLET) 500 Mg Tb, 1 TAB PO BID, #30 TAB 3 Refills 09/23/23 Nitroglycerin (NTROSTAT SUBLINGUAL) 0.4 Mg Sl, 0.4 MG SL PRN, TAB *MAY REPEAT EVERY 5 MINUTES X 3 TOTAL IF NO RELIEF, INITIATE ANALGESIC THERAPY. NOTIFY PHYSICIAN *Do not crush. 09/23/23 Docusate Sodium (Docusate Sodium) 100 Mg Cap, 100 MG PO BID, CAP 09/23/23 Acetaminophen (Acetaminophen) 325 Mg Tab, 650 MG PO Q4HP PRN for MILD PAIN for 30 Days, MG 0 Refills 09/23/23 Pravastatin Sodium (PRAVACHOL TABLET) 20 Mg Tb, 2 TAB PO DAILY for HIGH CHOLESTEROL, #90 TAB 3 Refills 12/04/21 Trazodone Hcl (Trazodone Hcl) 50 Mg Tab, 1 TAB PO HS, MG 01/23/20 Gabapentin (Gabapentin) 300 Mg Cap, 300 MG PO HS for NEUROPATHY for 30 Days, MG 11/23/18 Allopurinol (ZYLOPRIM TABLET) 100 Mg Tb, 1 TAB PO DAILY, #30 TAB 5 Refills 09/19/14 Information Source: Patient, Emergency Med Personnel Mode of Arrival: EMS Timing: Days Duration: Since onset Location of Back pain: (B) Lumbar Severity: Severe Prehospital treatment: Pain Meds Quality: Aching, Sharp, Stabbing Onset: Spontaneous History of: Chronic Back Pain Past Medical History PAST MEDICAL HISTORY: CAD, CHF, COPD, Depression, DM, GERD, Gout, High Lipids, HTN, PE Surgical History: Appendectomy, BTL, Cholecystectomy, Hysterectomy, PTCA SENIOR QUALITY MANAGER History: No Pertinent SENIOR QUALITY MANAGER History, Ectopic Family History Family History: Family hx of heart varinder, Family hx of HTN Social History Smoker: Non-Smoker Alcohol: Rarely Drugs: Denies Drug Use Lives In: Home Constitutional: denies: chills, diaphoresis, fatigue, fever, malaise, sweats, weakness, others EENTM: denies: blurred vision, double vision, ear bleeding, ear discharge, ear drainage, ear pain, ear ringing, eye pain, eye redness, hearing loss, mouth pain, mouth swelling, nasal discharge, nose bleeding, nose congestion, nose pain, photophobia, tearing, throat pain, throat swelling, voice changes, others Respiratory: denies: cough, hemoptysis, orthopnea, SOB at rest, shortness of breath, SOB with excertion, stridor, wheezing, others Cardiovascular: denies: chest pain, dizzy spells, diaphoresis, Dyspnea on exertion, edema, irregular heart beat, left arm pain, lightheadedness, palpitations, PND, syncope, others Gastrointestinal: denies: abdomen distended, abdominal pain, blood streaked bowels, constipated, diarrhea, dysphagia, difficulty swallowing, hematemesis, melena, nausea, poor appetite, poor fluid intake, rectal bleeding, rectal pain, vomiting, others Genitourinary: denies: abnormal vagina bleeding, burning, dyspareunia, dysuria, flank pain, frequency, hematuria, incontinence, pain, , vagina discharge, urgency, others Neurological: denies: dizziness, fainting, headache, left sided numbness, left sided weakness, numbness, paresthesia, pre-existing deficit, right sided numbness, right sided weakness, seizure, speech problems, tingling, tremors, weakness, others Musculoskeletal: reports: back pain; denies: gout, joint pain, joint swelling, muscle pain, muscle stiffness, neck pain, others Integumetry: denies: bruises, change in color, change in hair/nails, dryness, laceration, lesions, lumps, rash, wounds, others Allergic/Immunocompromised: denies: Difficulty Healing, Frequent Infections, Hives, Itching, others Hematologic/Lymphatic: denies: anemia, blood clots, easy bleeding, easy bruising, swollen glands, others Endocrine: denies: excessive hunger, excessive sweating, excessive thirst, excessive urination, flushing, intolerance to cold, intolerance to heat, unexplained weight gain, unexplained weight loss, others Psychiatric: denies: anxiety, bipolar disorder, depression, hopeless, panic disorder, schizophrenia, sleepless, suicidal, others Physical Exam General Appearance: Moderate Distress (Moderate distress due to low back pain concerns.), Normal HEENT: Normal ENT Inspection, Pharynx Normal, TMs Normal Neck: Full Range of Motion, Non-Tender, Normal, Normal Inspection Respiratory: Chest Non-Tender, Lungs Clear, No Accessory Muscle Use, No Respiratory Distress, Normal Breath Sounds Cardiovascular: No Edema, No JVD, No Murmur, No Gallop, Normal Peripheral Pulses, Regular Rate/Rhythm Breast Exam: Deferred Gastrointestinal: No Organomegaly, Non Tender, No Pulsatile Mass, Normal Bowel Sounds, Soft Genitalia: Deferred Pelvic: Deferred Rectal: Deferred Extremities: Normal capillary refill, No pedal edema Musculoskeletal : Location: Bilateral Extremity Location: Back (Difficult to assess as the patient was having a hard time moving on the gurney. Diffuse bilateral lumbar tenderness to palpatio n throughout. [id number] hypertonicity appreciated. Patient denies any saddle paresthesia. Patient states she can not stand without having her legs become weak.) Apperance: Normal Neurologic: Alert, No Motor Deficits, Normal Affect, Normal Mood, No Sensory Deficits Cerebellar Function: NOT DONE Reflexes: NOT DONE Skin: Dry, Normal Color, Warm Lymphatic: No Adenopathy Was a procedure done? Was a procedure done?: No Back Pain Differential Dx Differential Diagnosis: Other (Lumbar fracture, degenerative disc disease of the lumbar spine, lumbar radiculopathy, low back pain, sepsis, electrolyte abnormality) X-Ray, Labs, Meds, VS Vital Signs Date Time Temp Pulse Resp B/P (MAP) Pulse Ox O2 Delivery O2 Flow Rate FiO2 01/14/25 16:09 98.0 94 18 134/95 100 98.0 Lab Test 01/14/25 16:27 Range/Units White Blood Count 5.7 4.4-10.8 10^3/uL Red Blood Count 4.13 4.0-5.20 10^6/uL Hemoglobin 13.6 12.2-16.2 g/dL Hematocrit 39.1 36.0-46.0 % Mean Corpuscular Volume 94.7 80.0-100.0 fL Mean Corpuscular Hemoglobin 32.8 H 28.0-32.0 pg Mean Corpuscular Hemoglobin Concent 34.7 32.0-36.0 g/dL Red Cell Distribution Width 13.7 11.8-14.3 % Platelet Count 167 140-450 10^3/uL Mean Platelet Volume 8.4 6.9-10.8 fL Neutrophils (%) (Auto) 73.0 37.0-80.0 % Lymphocytes (%) (Auto) 16.4 10.0-50.0 % Monocytes (%) (Auto) 7.5 0.0-12.0 % Eosinophils (%) (Auto) 2.1 0.0-7.0 % Basophils (%) (Auto) 1.0 0.0-2.0 % Neutrophils # (Auto) 4.2 1.6-8.6 10 ^3/uL Lymphocytes # (Auto) 0.9 0.4-5.4 10 ^3/uL Monocytes # (Auto) 0.4 0-1.3 10 ^3/uL Eosinophils # (Auto) 0.1 0-0.8 10 ^3/uL Basophils # (Auto) 0.1 0-0.2 10 ^3/uL Nucleated Red Blood Cells 0.1 % Sodium Level 144 136-145 mmol/L Potassium Level 3.4 L 3.5-5.1 mmol/L Chloride Level 106 98-107 mmol/L Carbon Dioxide Level 30 20-31 mmol/L Anion Gap 8 5-15 Blood Urea Nitrogen 22 9-23 mg/dL Creatinine 1.02 0.550-1.02 mg/dL Glomerular Filtration Rate Calc 53 >90 mL/min BUN/Creatinine Ratio 21.6 H 10.0-20.0 Serum Glucose 127 H 74-106 mg/dL Lactic Acid Level 1.2 0.4-2.0 mmol/L Calcium Level 9.1 8.7-10.4 mg/dL Total Bilirubin 0.7 0.2-1.0 mg/dL Aspartate Amino Transferase (AST) 16 13-40 U/L Alanine Aminotransferase (ALT) < 9 7-40 U/L Alkaline Phosphatase 123 H 46-116 U/L Troponin I High Sensitivity 5 </=34 ng/L Total Protein 5.7 5.7-8.2 g/dL Albumin 3.8 3.2-4.8 g/dL Lipase 44 12-53 U/L X-Ray, Labs, Meds, VS Comment All studies performed the ED were evaluated by me personally. UA was pending time of this note. Serum studies were unremarkable for any systemic concerns, sepsis or electrolyte abnormalities. CT of the lumbar spine revealed no evid ence of a definitive acute fracture, spinal dislocation or significant appearing acute subluxation. Significant disc degeneration, bony fusion and possible T12 compression fracture was noted. This patient will require admission for pain management, orthopedic consultation and transferred [facility] a [facility] for PT and OT management. Time of 1ST Reevaluation: 18:06 Reevaluation 1ST: Improved Consultation: PCP, Other (Orthopedist) Patient Education/Counseling: Diagnosis, Treatment Family Education/Counseling: Diagnosis, Treatment SEPSIS Sepsis Screen Date sepsis recognized/suspect: Jan 14, 2025 Time Sepsis recognized/suspect: 1608 Recent Procedure: No On Antibiotic Therapy: No Respiratory Rate >20: No Heart Rate >90: Yes Temp<36 C (96.8 F) or >38.3 C: No SBP <90 or MAP <65 mmHG: No New Acute Mental Status Change: No Is the patient on CPAP, BIPAP,: No Physician Orders Urinalysis (01/14/25 15:59) Straightcath If Unable To Void (01/14/25 15:59) Troponin-I Hs (01/14/25 16:59) Troponin-I Hs (01/14/25 18:59) Electrocardigram (01/14/25 15:59) Ls Spine Wo Contrast (01/14/25 15:59) Vital Signs Date Time Temp Pulse Resp B/P (MAP) Pulse Ox O2 Delivery O2 Flow Rate FiO2 01/14/25 16:09 98.0 94 18 134/95 100 98.0 Laboratory Tests Test 01/14/25 16:27 Lactic Acid Level 1.2 mmol/L (0.4-2.0) White Blood Count 5.7 10^3/uL (4.4-10.8) Departure 1 Departure Time of Disposition: 18:07 Impression: Primary Impression: Intractable low back pain Disposition: ADMITTED INPATIENT Condition: Fair Discharged With: Self Critical Care Note Critical Care Time?: No Stability Stability form required: No Heart Score Heart Score: Heart Score Response (Comments) Value History N/A 0 EKG N/A 0 Age N/A 0 Risk Factors N/A 0 Troponin N/A 0 Total 0 [facility] Jan 14, 2025 18:12
--- NOTE | 2025-01-14 22:37 | DVHHPRES ---
History of Present Illness Resident Creating Document: ABDI REIS RESIDENT History of Present Illness 89-year-old female with past medical history of hip surgery, hypertension, COPD comes today year with intractable back pain rating 10/10. She does not remember any recent falls or accidents. The but the patient reports since last 6 years she had multiple episodes of fall. Reports having constipation and relieved by [id number] medicines. Past medical history: Hypertension, COPD Past surgical history: Hip surgery Smoking: Never Drug abuse: Never Alcohol: Patient started drinking from her 30s, she takes 1 or 2 beers at nighttime till now Allergies: Sulfa drugs PCP: Dr. Ramírez Code status: Full code Review of Systems Allergies: Coded Allergies: Sulfa Antibiotics (Verified Allergy, Unknown, 02/18/24) Exam Vital Signs Vital Signs Date Time Temp Pulse Resp B/P (MAP) Pulse Ox O2 Delivery O2 Flow Rate FiO2 01/14/25 16:09 98.0 94 18 134/95 100 98.0 Labs/Xrays Labs Test 01/14/25 17:56 01/14/25 16:27 Range/Units Troponin I High Sensitivity 5 </=34 ng/L White Blood Count 5.7 4.4-10.8 10^3/uL Red Blood Count 4.13 4.0-5.20 10^6/uL Hemoglobin 13.6 12.2-16.2 g/dL Hematocrit 39.1 36.0-46.0 % Mean Corpuscular Volume 94.7 80.0-100.0 fL Mean Corpuscular Hemoglobin 32.8 H 28.0-32.0 pg Mean Corpuscular Hemoglobin Concent 34.7 32.0-36.0 g/dL Red Cell Distribution Width 13.7 11.8-14.3 % Platelet Count 167 140-450 10^3/uL Mean Platelet Volume 8.4 6.9-10.8 fL Neutrophils (%) (Auto) 73.0 37.0-80.0 % Lymphocytes (%) (Auto) 16.4 10.0-50.0 % Monocytes (%) (Auto) 7.5 0.0-12.0 % Eosinophils (%) (Auto) 2.1 0.0-7.0 % Basophils (%) (Auto) 1.0 0.0-2.0 % Neutrophils # (Auto) 4.2 1.6-8.6 10 ^3/uL Lymphocytes # (Auto) 0.9 0.4-5.4 10 ^3/uL Monocytes # (Auto) 0.4 0-1.3 10 ^3/uL Eosinophils # (Auto) 0.1 0-0.8 10 ^3/uL Basophils # (Auto) 0.1 0-0.2 10 ^3/uL Nucleated Red Blood Cells 0.1 % Sodium Level 144 136-145 mmol/L Potassium Level 3.4 L 3.5-5.1 mmol/L Chloride Level 106 98-107 mmol/L Carbon Dioxide Level 30 20-31 mmol/L Anion Gap 8 5-15 Blood Urea Nitrogen 22 9-23 mg/dL Creatinine 1.02 0.550-1.02 mg/dL Glomerular Filtration Rate Calc 53 >90 mL/min BUN/Creatinine Ratio 21.6 H 10.0-20.0 Serum Glucose 127 H 74-106 mg/dL Lactic Acid Level 1.2 0.4-2.0 mmol/L Calcium Level 9.1 8.7-10.4 mg/dL Total Bilirubin 0.7 0.2-1.0 mg/dL Aspartate Amino Transferase (AST) 16 13-40 U/L Alanine Aminotransferase (ALT) < 9 7-40 U/L Alkaline Phosphatase 123 H 46-116 U/L Total Protein 5.7 5.7-8.2 g/dL Albumin 3.8 3.2-4.8 g/dL Lipase 44 12-53 U/L SEPSIS Sepsis Screen Date sepsis recognized/suspect: Jan 14, 2025 Time Sepsis recognized/suspect: 1609 Recent Procedure: No On Antibiotic Therapy: No Respiratory Rate >20: No Heart Rate >90: Yes Temp<36 C (96.8 F) or >38.3 C: No SBP <90 or MAP <65 mmHG: No New Acute Mental Status Change: No Is the patient on CPAP, BIPAP,: No Physician Orders Urinalysis (01/14/25 15:59) Straightcath If Unable To Void (01/14/25 15:59) Electrocardigram (01/14/25 15:59) Ls Spine Wo Contrast (01/14/25 15:59) Admit (01/14/25 22:32) Allergies (01/14/25 22:32) Complete Blood Count (01/15/25 04:00) Comprehensive Metabolic Panel (01/15/25 04:00) Cardiac Diet-2gna,Lofat,Lochol (01/15/25 Breakfast) Oxygen By Nasal Cannula (01/14/25 22:32) Notify Of Changes From Base (01/14/25 22:32) Vital Signs Date Time Temp Pulse Resp B/P (MAP) Pulse Ox O2 Delivery O2 Flow Rate FiO2 01/14/25 16:09 98.0 94 18 134/95 100 98.0 Laboratory Tests Test 01/14/25 16:27 Lactic Acid Level 1.2 mmol/L (0.4-2.0) White Blood Count 5.7 10^3/uL (4.4-10.8) Assessment/Plan Assessment/Plan Back pain due to disc compression? Compression fracture? Tumor/metastasis? CT spine WO contrast: No definite CT evidence of acute fracture or dislocation of the bony lumbar spine.Compression of T12 biconcave depression of L1.Bony fusion of L2-3. Degenerative disc changes at L3-4.Possible osseous hemangioma L2-3.. Nonemergent MRI may be helpful for further evaluation. -[place] for pain p.r.n. -tramadol -consult orthopedics Hypertension: Amlodipine Metoprolol tartrate Hyperlipidemia Pravastatin GI prophylaxis: Not Indicated DVT prophylaxis: Eliquis Diet: Diabetic Goals of care discussed with the patient for more than 27 minutes: Full code status Case discussed with , patient and RN Plan discussed with: Patient My Orders Orders - ABDI REIS Procedure Category Date Status Time Admit ADMIT 01/14/25 Transmitted 22:32 Allergies ROSANA 01/14/25 In Process 22:32 Complete Blood Count LAB 01/15/25 Verified 04:00 Comprehensive LAB 01/15/25 Verified Metabolic Panel 04:00 Cardiac DIET 01/15/25 Transmitted Diet-2gna,Lofat,Lochol Breakfast Oxygen By Nasal RT 01/14/25 Transmitted Cannula 22:32 Notify Of Changes ROSANA 01/14/25 In Process From Base 22:32 Date of Service: Jan 14, 2025 Billing Provider: BRUCE ZAMAN MD Common Visit Codes: [id number] INP/OBS CARE (HIGH) Secondary Visit Codes: [id number] CARE PLAN 30 MINUTES ABDI REIS Jan 14, 2025 22:37 BRUCE ZAMAN MD Jan 19, 2025 16:09
[2025-01-14] MEDS ORDERED: HYDROcodone-ACET 5/325MG TAB PO PRN (23:15)
[2025-01-14] MEDS ORDERED: ACETAMINOPHEN 325 MG TAB PO PRN (23:15)
[2025-01-15] VITALS (12 sets, daily range): BP systolic 133–147; BP diastolic 70–95; PULSE 70–100; RESP 14–28; TEMP 97.6–98.8; O2SAT 94–100
[2025-01-15] MEDS: POTASSIUM CHL 20 Meq TABLET PO ONE ×2 (01:08→14:55)
[2025-01-15] MEDS: LEVOTHYROXINE SODIUM 50 MCG TAB PO SCH (06:21)
[2025-01-15 06:28] LABS: Hematocrit 38.4 % (36.0-46.0); Hemoglobin 13.4 g/dL (12.2-16.2); Mean Corpuscular Hemoglobin 32.8 pg (28.0-32.0); Mean Corpuscular Volume 94.0 fL (80.0-100.0); Nucleated Red Blood Cells % 0.1 %
[2025-01-15 06:41] LABS: Albumin 3.8 g/dL (3.2-4.8); Anion Gap 11 (5-15); BUN/Creatinine Ratio 22.0 (10.0-20.0); Blood Urea Nitrogen 22 mg/dL (9-23); Calcium 9.4 mg/dL (8.7-10.4); Carbon Dioxide 29 mmol/L (20-31); Chloride 105 mmol/L (98-107); Total Protein 5.8 g/dL (5.7-8.2)
[2025-01-15 06:42] LABS: Alanine Aminotransferase < 9 U/L (7-40); Alkaline Phosphatase 118 U/L (46-116); Bilirubin, Total 0.8 mg/dL (0.2-1.0); Glucose 106 mg/dL (74-106); Potassium 3.2 mmol/L (3.5-5.1); Sodium 145 mmol/L (136-145)
[2025-01-15] MEDS: METOPROLOL TARTRATE 25 MG TAB PO SCH (09:41)
[2025-01-15] MEDS: APIXABAN 2.5 MG TAB PO SCH (09:41)
[2025-01-15] MEDS: PRAVASTATIN SODIUM 20 MG TAB PO SCH (09:42)
[2025-01-15] MEDS: PANTOPRAZOLE 40 MG TAB PO SCH (09:42)
[2025-01-15] MEDS: ALLOPURINOL 100 MG TAB PO SCH (09:42)
--- NOTE | 2025-01-15 13:30 | DVHPN2 ---
Subjective 89-year-old female came with a low back pain She has frequent falls recently She uses a walker at home Changes from previous H/P or p: Changes Objective Vitals Vital Signs Date Time Temp Pulse Resp B/P (MAP) Pulse Ox O2 Delivery O2 Flow Rate FiO2 01/15/25 13:00 70 24 142/70 (94) 01/15/25 08:56 98 Nasal Cannula* 2 28 01/15/25 07:30 98.6 98.6 General Appearance: Alert, Oriented X3, Cooperative Extremities: No edema Medications Current Medications Medications Dose Ordered Sig/Lupe Route Start Time Stop Time Status Last Admin Dose Admin Acetaminophen 650 mg Q4HP PRN PO 01/14/25 23:15 Allopurinol 100 mg DAILY PO 01/15/25 10:00 01/15/25 09:42 100 MG Amlodipine Besylate 5 mg DAILY PO 01/15/25 10:00 01/15/25 09:41 5 MG Apixaban 2.5 mg BID PO 01/15/25 10:00 01/15/25 09:41 2.5 MG Fluoxetine HCl 10 mg DAILY PO 01/15/25 10:00 01/15/25 09:42 10 MG Gabapentin 300 mg HS PO 01/15/25 22:00 Hydralazine HCl 10 mg Q6HP PRN PO 01/14/25 23:15 Metoprolol Tartrate 25 mg Q12HR PO 01/15/25 10:00 01/15/25 09:41 25 MG Pantoprazole Sodium 40 mg DAILY PO 01/15/25 10:00 01/15/25 09:42 40 MG Pravastatin Sodium 40 mg DAILY PO 01/15/25 10:00 01/15/25 09:42 40 MG Tramadol HCl 50 mg BIDP PRN PO 01/14/25 23:15 Trazodone HCl 50 mg HS PO 01/15/25 22:00 Levothyroxine Sodium 75 mcg QAM PO 01/15/25 07:00 01/15/25 06:21 75 MCG Acetaminophen/ Hydrocodone Bitart 1 tab Q4HPRN PRN PO 01/14/25 23:30 Laboratory Results Laboratory Tests 01/15/25 05:47 Chemistry Test 01/14/25 16:27 01/15/25 05:47 Albumin 3.8 g/dL (3.2-4.8) 3.8 g/dL (3.2-4.8) Calcium Level 9.1 mg/dL (8.7-10.4) 9.4 mg/dL (8.7-10.4) Total Protein 5.7 g/dL (5.7-8.2) 5.8 g/dL (5.7-8.2) Lipid panel Test 01/14/25 16:27 Lipase 44 U/L (12-53) LFT Test 01/14/25 16:27 01/15/25 05:47 Alanine Aminotransferase (ALT) < 9 U/L (7-40) < 9 U/L (7-40) Alkaline Phosphatase 123 U/L (46-116) H 118 U/L (46-116) H Aspartate Amino Transferase (AST) 16 U/L (13-40) 18 U/L (13-40) Total Bilirubin 0.7 mg/dL (0.2-1.0) 0.8 mg/dL (0.2-1.0) Assessment/Plan Assessment/Plan Frequent falls Acute on chronic low back pain Lumbar spine DJD Lumbar spine compression fractures of the L1 and also the T12 Hypokalemia COPD Chronic respiratory failure on home O2 Hypertension Hypothyroidism Plan Pain control as needed Physical therapy evaluation Continue the home medications Observe the patient in the hospital 1 more day Full code Advance directives discussed for 15 minutes Plan discussed with: Patient Date of Service: Jan 15, 2025 Billing Provider: STEVE URENA MD Common Visit Codes: [id number] INP/OBS CARE(HIGH) Secondary Visit Codes: [id number] CARE PLAN 30 MINUTES STEVE URENA MD Jan 15, 2025 13:30
[2025-01-15] MEDS: GABAPENTIN 300 MG CAP PO SCH (21:25)
[2025-01-16] VITALS (7 sets, daily range): BP systolic 124–167; BP diastolic 71–102; PULSE 63–87; RESP 16–18; TEMP 96.4–97.8; O2SAT 96–99
[2025-01-16 10:52] LABS: Anion Gap 11 (5-15); Carbon Dioxide 25 mmol/L (20-31); Potassium 4.0 mmol/L (3.5-5.1); Sodium 144 mmol/L (136-145)
[2025-01-16 10:53] LABS: Calcium 9.3 mg/dL (8.7-10.4)
[2025-01-16 10:58] LABS: BUN/Creatinine Ratio 21.6 (10.0-20.0); Blood Urea Nitrogen 19 mg/dL (9-23); Glucose 95 mg/dL (74-106); Magnesium 2.2 mg/dL (1.6-2.6)
[2025-01-16 10:59] LABS: Chloride 108 mmol/L (98-107)
--- NOTE | 2025-01-16 13:41 | DVHPN2 ---
Subjective Very weak Sleepy Not ambulating Changes from previous H/P or p: Changes Objective Vitals Vital Signs Date Time Temp Pulse Resp B/P (MAP) Pulse Ox O2 Delivery O2 Flow Rate FiO2 01/16/25 10:45 63 148/77 01/16/25 09:00 97.6 17 98 97.6 01/16/25 08:00 Nasal Cannula* 1 24 Intake/Output Intake and Output 01/16/25 07:00 Intake Total 750 ml Balance 750 ml Intake Oral 750 ml General Appearance: Alert, Oriented X3, Cooperative Extremities: No edema Medications Current Medications Medications Dose Ordered Sig/Lupe Route Start Time Stop Time Status Last Admin Dose Admin Acetaminophen 650 mg Q4HP PRN PO 01/14/25 23:15 Allopurinol 100 mg DAILY PO 01/15/25 10:00 01/16/25 09:45 100 MG Amlodipine Besylate 5 mg DAILY PO 01/15/25 10:00 01/16/25 09:45 5 MG Apixaban 2.5 mg BID PO 01/15/25 10:00 01/16/25 09:45 2.5 MG Fluoxetine HCl 10 mg DAILY PO 01/15/25 10:00 01/15/25 09:42 10 MG Gabapentin 300 mg HS PO 01/15/25 22:00 01/15/25 21:25 300 MG Hydralazine HCl 10 mg Q6HP PRN PO 01/14/25 23:15 Metoprolol Tartrate 25 mg Q12HR PO 01/15/25 10:00 01/16/25 09:45 25 MG Pantoprazole Sodium 40 mg DAILY PO 01/15/25 10:00 01/16/25 09:45 40 MG Pravastatin Sodium 40 mg DAILY PO 01/15/25 10:00 01/16/25 09:45 40 MG Trazodone HCl 50 mg HS PO 01/15/25 22:00 01/15/25 21:24 50 MG Levothyroxine Sodium 75 mcg QAM PO 01/15/25 07:00 01/16/25 06:09 75 MCG Acetaminophen/ Hydrocodone Bitart 1 tab Q4HPRN PRN PO 01/14/25 23:30 Laboratory Results Laboratory Tests 01/15/25 05:47 01/16/25 09:21 Chemistry Test 01/16/25 09:21 Calcium Level 9.3 mg/dL (8.7-10.4) Magnesium Level 2.2 mg/dL (1.6-2.6) Assessment/Plan Assessment/Plan Frequent falls Acute on chronic low back pain Lumbar spine DJD Lumbar spine compression fractures of the L1 and also the T12 Hypokalemia COPD Chronic respiratory failure on home O2 Hypertension Hypothyroidism Plan Pain control as needed Physical therapy evaluation Continue the home medications Observe the patient in the hospital 1 more day Full code Advance directives discussed for 15 minutes 01/16/25: Lethargy: DC sedating meds Back pain: [place] prn Weakness: Physical therapy COPD PLAN: Wait x 1 more day in hospital to let her wake up more DC planning home tomorrow Plan discussed with: Patient Date of Service: Jan 16, 2025 Billing Provider: STEVE URENA MD Common Visit Codes: [id number] INP/OBS CARE(HIGH) STEVE URENA MD Jan 16, 2025 13:41
[2025-01-17 01:00] VITALS: BP 116/72; PULSE 75; RESP 20; TEMP 98; O2SAT 96
[2025-01-17] MEDS: HYDROcodone-ACET 5/325MG TAB PO PRN (01:11)
[2025-01-17 05:00] VITALS: BP 132/63; PULSE 70; RESP 20; TEMP 98.8; O2SAT 98
[2025-01-17 08:00] VITALS: PULSE 76; RESP 16; O2SAT 94
[2025-01-17 09:00] VITALS: BP 137/81; PULSE 76; RESP 16; TEMP 98; O2SAT 94
[2025-01-17 13:00] VITALS: BP 99/63; PULSE 50; RESP 16; TEMP 97.1; O2SAT 97
--- NOTE | 2025-01-17 14:28 | DVHDS2 ---
Discharge Summary Date of Admission Jan 14, 2025 at 22:32 Date of Discharge: Jan 17, 2025 Labs/Diagnostic Data: Laboratory Results Test 01/16/25 09:21 01/15/25 05:47 01/14/25 17:56 01/14/25 16:27 Sodium Level 144 mmol/L (136-145) Potassium Level 4.0 mmol/L (3.5-5.1) Chloride Level 108 mmol/L (98-107) Carbon Dioxide Level 25 mmol/L (20-31) Anion Gap 11 (5-15) Blood Urea Nitrogen 19 mg/dL (9-23) Creatinine 0.88 mg/dL (0.550-1.02) Glomerular Filtration Rate Calc 64 mL/min (>90) BUN/Creatinine Ratio 21.6 (10.0-20.0) Serum Glucose 95 mg/dL (74-106) Calcium Level 9.3 mg/dL (8.7-10.4) Magnesium Level 2.2 mg/dL (1.6-2.6) White Blood Count 6.0 10^3/uL (4.4-10.8) Red Blood Count 4.09 10^6/uL (4.0-5.20) Hemoglobin 13.4 g/dL (12.2-16.2) Hematocrit 38.4 % (36.0-46.0) Mean Corpuscular Volume 94.0 fL (80.0-100.0) Mean Corpuscular Hemoglobin 32.8 pg (28.0-32.0) Mean Corpuscular Hemoglobin Concent 34.9 g/dL (32.0-36.0) Red Cell Distribution Width 13.9 % (11.8-14.3) Platelet Count 154 10^3/uL (140-450) Mean Platelet Volume 8.6 fL (6.9-10.8) Neutrophils (%) (Auto) 64.9 % (37.0-80.0) Lymphocytes (%) (Auto) 23.1 % (10.0-50.0) Monocytes (%) (Auto) 8.6 % (0.0-12.0) Eosinophils (%) (Auto) 2.5 % (0.0-7.0) Basophils (%) (Auto) 0.9 % (0.0-2.0) Neutrophils # (Auto) 3.9 10 ^3/uL (1.6-8.6) Lymphocytes # (Auto) 1.4 10 ^3/uL (0.4-5.4) Monocytes # (Auto) 0.5 10 ^3/uL (0-1.3) Eosinophils # (Auto) 0.2 10 ^3/uL (0-0.8) Basophils # (Auto) 0.1 10 ^3/uL (0-0.2) Nucleated Red Blood Cells 0.1 % Total Bilirubin 0.8 mg/dL (0.2-1.0) Aspartate Amino Transferase (AST) 18 U/L (13-40) Alanine Aminotransferase (ALT) < 9 U/L (7-40) Alkaline Phosphatase 118 U/L (46-116) Total Protein 5.8 g/dL (5.7-8.2) Albumin 3.8 g/dL (3.2-4.8) Troponin I High Sensitivity 5 ng/L (</=34) Lactic Acid Level 1.2 mmol/L (0.4-2.0) Lipase 44 U/L (12-53) Other Laboratory Tests 01/16/25 09:21 01/15/25 05:47 Brief Hx & Hospital Course: Final diagnoses: Frequent falls Acute on chronic low back pain Lumbar spine DJD Lumbar spine compression fractures of the L1 and also the T12 Hypokalemia COPD Chronic respiratory failure on home O2 Hypertension Hypothyroidism 89-year-old female who was admitted for low back pain that she had for few weeks She has degenerative joint disease in her lumbar spine and then she was also found to have compression fractures She said she has frequent falls She was seen here in the hospital and was weak to ambulate due to the pain and therefore we requested physical therapy to see her Yesterday she was lethargic and therefore she did not know physical therapy and therefore we stopped her trazodone and gabapentin and today she was more alert and oriented and participated with physical therapy and ambulated well with a walker and therefore she will be discharged home now She has a walker at home Follow up with the primary care physician as soon as possible Continue same home medications Condition at Discharge: Stable Final Diagnosis/Problems List Frequent falls Acute on chronic low back pain Lumbar spine DJD Lumbar spine compression fractures of the L1 and also the T12 Hypokalemia COPD Chronic respiratory failure on home O2 Hypertension Hypothyroidism Discharge Disposition: Home SNF Discharge Will this Physician continue t: No Discharge Instruct/Medications Diet: Cardiac 2g Na,low cholest Activity: No Restrictions, As Tolerated Follow Up/Referral: PCP as soon as possible Medications: Same home medications Scheduled Albuterol Sulfate (Albuterol Sulfate), 1 VIAL NEB UD Allopurinol (Zyloprim Tablet), 1 TAB PO DAILY, (Reported) Amlodipine Besylate (Norvasc Tablet), 5 MG PO DAILY Apixaban Base (Eliquis), 2.5 MG PO BID Ascorbic Acid (Vitamin C Tablet), 1 TAB PO BID, (Reported) Cholecalciferol (Vitamin D3), 1 TAB PO DAILY, (Reported) Docusate Sodium (Docusate Sodium), 100 MG PO BID, (Reported) Fluoxetine Hcl (Fluoxetine Hcl), 10 MG PO DAILY, (Reported) Furosemide (Furosemide), 40 MG PO DAILY Gabapentin (Gabapentin), 300 MG PO HS, (Reported) Levothyroxine Sodium (Levothyroxine Sodium), 75 MCG PO QAM, (Reported) Metoprolol Tartrate (Lopressor), 25 MG PO Q12HR Multiple Vitamin (Multivitamins), 1 TAB PO DAILY, (Reported) Nitroglycerin (Ntrostat Sublingual), 0.4 MG SL PRN, (Reported) Pantoprazole Sodium Sesquihydr (Protonix), 40 MG PO BEFORE BREAKFAST, (Reported) Potassium Chloride (Pokonza), 20 MEQ PO DAILY, (Reported) Pravastatin Sodium (Pravachol Tablet), 2 TAB PO DAILY, (Reported) Trazodone Hcl (Trazodone Hcl), 1 TAB PO HS, (Reported) Scheduled PRN Acetaminophen (Acetaminophen), 650 MG PO Q4HP PRN for MILD PAIN, (Reported) Hydralazine Hcl (Hydralazine Hcl), 10 MG PO Q6HR PRN for SBP>160, (Reported) Hydrocodone-Acetaminophen (Hydrocodone Bitartrate/AC 5-325 mg), 1 TAB PO Q4HPRN PRN for MODERATE TO SEVERE PAIN 4-10, (Reported) Tramadol Hcl (Tramadol Hcl), 50 MG PO BIDP PRN for PAIN SCALE 1 THRU 6, (Reported) Discharge Statement: "Patient was advised to return to the ER or call 911 if any headaches, dizziness, shortness of breath, chest pain, abdominal pain, bleeding, fevers, or worsening of medical condition. Patient was counseled about treatment plan, medications, possible side effects, patientverbalized understanding. All questions were answered to the best of my ability. This discharge took greater then 30 minutes in planning, reviewing documentation, counseling the patient, and discussing with other team members." ASSESSMENT ASSESSMENT Assessment Frequent falls Acute on chronic low back pain Lumbar spine DJD Lumbar spine compression fractures of the L1 and also the T12 Hypokalemia COPD Chronic respiratory failure on home O2 Hypertension Hypothyroidism Date of Service: Jan 17, 2025 Billing Provider: STEVE URENA MD Common Visit Codes: [id number] DISCH DAY >30min STEVE URENA MD Jan 17, 2025 14:28
== END 2025-01-17 15:50 | disposition home or self-care (01) | DRG 543 ==
LOC: ER 15:51 → EDBD 15:51 → OVERFLOW 22:32 → WEST WING 01-15 15:10
PROVIDERS: ADMIT Internal Medicine Geriatric Medicine; ATTEND Internal Medicine Geriatric Medicine
DX: M48.56XA Collapsed vertebra, not elsewhere classified, lumbar region, initial encounter for fracture (principal); J96.10 Chronic respiratory failure, unspecified whether with hypoxia or hypercapnia; M47.816 Spondylosis without myelopathy or radiculopathy, lumbar region; J44.9 Chronic obstructive pulmonary disease, unspecified; E66.9 Obesity, unspecified; G89.29 Other chronic pain; E78.5 Hyperlipidemia, unspecified; E11.9 Type 2 diabetes mellitus without complications; E03.9 Hypothyroidism, unspecified; E87.6 Hypokalemia; R29.6 Repeated falls; I50.9 Heart failure, unspecified; I11.0 Hypertensive heart disease with heart failure; I25.10 Atherosclerotic heart disease of native coronary artery without angina pectoris; K21.9 Gastro-esophageal reflux disease without esophagitis; F32.A Depression, unspecified; M10.9 Gout, unspecified; Z88.2 Allergy status to sulfonamides; Z79.01 Long term (current) use of anticoagulants; Z90.49 Acquired absence of other specified parts of digestive tract; Z99.81 Dependence on supplemental oxygen; Z90.710 Acquired absence of both cervix and uterus; Z82.49 Family history of ischemic heart disease and other diseases of the circulatory system; Z68.26 Body mass index [BMI] 26.0-26.9, adult; Z79.899 Other long term (current) drug therapy
CPT/HCPCS: 36415; 72131; 80048; 80053; 83605; 83690; 83735; 84484; 85025; 97110; 97116; 97163; G0378

== ENCOUNTER → 2025-02-21 | Outpatient (CLI) | payer OTHER, MEDICAID | END | disposition home or self-care (01) | LOC: LAB 06:05 | PROVIDERS: ATTEND Nurse Practitioner Family | DX: N39.0 Urinary tract infection, site not specified (principal) | CPT/HCPCS: 87086 ==

== ENCOUNTER 2025-04-03 12:03 | Outpatient (CLI) | payer OTHER, MEDICAID ==
[2025-04-03 12:24] LABS: Hematocrit 38.8 % (36.0-46.0); Hemoglobin 13.2 g/dL (12.2-16.2); Mean Corpuscular Hemoglobin 32.5 pg (28.0-32.0); Mean Corpuscular Volume 95.5 fL (80.0-100.0); Nucleated Red Blood Cells % 0.1 %
[2025-04-03 12:47] LABS: Triglycerides 124 mg/dL (< 150)
[2025-04-03 12:48] LABS: Alanine Aminotransferase < 9 U/L (7-40); Albumin 3.7 g/dL (3.2-4.8); Alkaline Phosphatase 70 U/L (46-116); Anion Gap 11 (5-15); BUN/Creatinine Ratio 11.6 (10.0-20.0); Bilirubin, Total 0.8 mg/dL (0.2-1.0); Blood Urea Nitrogen 13 mg/dL (9-23); Calcium 9.1 mg/dL (8.7-10.4); Carbon Dioxide 30 mmol/L (20-31); Chloride 100 mmol/L (98-107); Cholesterol 148 mg/dL (< 200); Glucose 110 mg/dL (74-106); HDL Cholesterol 49 mg/dL (40-59); Potassium 3.0 mmol/L (3.5-5.1); Sodium 141 mmol/L (136-145); Total Protein 6.0 g/dL (5.7-8.2)
[2025-04-03 12:53] LABS: Urine Protein, UAD 2+ (Negative); Urine WBC Clumps PRESENT /hpf (None Seen)
[2025-04-03 13:18] LABS: Uric Acid 5.1 mg/dL (3.1-7.8)
== END 2025-04-03 17:00 | disposition home or self-care (01) ==
LOC: LAB 12:03
PROVIDERS: ATTEND Nurse Practitioner Family
DX: K76.0 Fatty (change of) liver, not elsewhere classified (principal); Z12.11 Encounter for screening for malignant neoplasm of colon; Z11.3 Encounter for screening for infections with a predominantly sexual mode of transmission; R79.89 Other specified abnormal findings of blood chemistry; Z79.899 Other long term (current) drug therapy
CPT/HCPCS: 36415; 80053; 80061; 81001; 82306; 82607; 82746; 83036; 84443; 84480; 84550; 85025; 87086

== ENCOUNTER → 2025-04-11 | Outpatient (CLI) | payer OTHER, MEDICAID | END | disposition home or self-care (01) | LOC: LAB 06:23 | PROVIDERS: ATTEND Internal Medicine | DX: N39.0 Urinary tract infection, site not specified (principal); R30.9 Painful micturition, unspecified | CPT/HCPCS: 87086 ==